=== PATIENT | male | born 1955 | race Caucasian/White ===

== ENCOUNTER 2019-05-04 20:25 | Observation (INO) | payer OTHER, MEDICARE ==
[2019-05-04] MEDS ORDERED: SODIUM CHLORIDE 0.9% 500 ML 500 ML IV STA (21:05)
[2019-05-04 21:27] LABS: Glucose,Whole Blood 150 mg/dL (75-99)
[2019-05-04 21:45] LABS: Basophils % (A) 1 %; Eosinophils # (A) 0.5 k/uL (0-0.7); Eosinophils % (A) 6 %; HCT 39.6 % (39.0-53.0); HGB 12.8 gm/dL (13.0-17.5); Lymphocytes # (A) 1.9 k/uL (1.0-4.8); Lymphocytes % (A) 22 %; MCH 32.4 pg (25.0-35.0); MCHC 32.3 g/dL (31.0-37.0); MCV 100.4 fL (80.0-100.0); Macrocytosis Slight; Mean Platelet Volume 7.9; Monocytes # (A) 0.4 k/uL (0-1.0); Monocytes % (A) 5 %; Neutrophils # (A) 5.4 k/uL (1.3-7.7); Neutrophils % (A) 65 %; Platelet Count 135 k/uL (150-450); RBC 3.95 m/uL (4.30-5.90); RDW 14.7 % (11.5-15.5); WBC 8.4 k/uL (3.8-10.6)
[2019-05-04 21:47] LABS: Albumin 4.7 g/dL (3.5-5.0); Calcium 9.8 mg/dL (8.4-10.2); Potassium 3.9 mmol/L (3.5-5.1); Total Protein 7.9 g/dL (6.3-8.2)
[2019-05-04 21:50] LABS: D-Dimer 0.51 mg/L FEU (<0.60); Partial Thromboplastin Time 26.5 sec (22.0-30.0); Prothrombin Time 10.7 sec (9.0-12.0)
--- NOTE | 2019-05-04 21:56 | CT ---
EXAMINATION TYPE: CT brain wo con DATE OF EXAM: 05/04/2019 COMPARISON: None HISTORY: Dizziness and near syncope. CT DLP: 1174.4 mGycm Automated exposure control for dose reduction was used. FINDINGS: There is some hypodensity in the white matter of both posterior parietal lobes. There is no mass effe ct nor midline shift. There is no sign of intracranial hemorrhage. Calvarium is intact. IMPRESSION: BILATERAL PARIETAL WHITE MATTER HYPODENSITY CONSISTENT WITH SMALL VESSEL ISCHEMIA. NO HEMORRHAGE. NO EVIDENCE OF CORTICAL INFARCT.
--- NOTE | 2019-05-04 21:57 | XR ---
EXAMINATION TYPE: XR chest 2V DATE OF EXAM: 05/04/2019 COMPARISON: NONE HISTORY: Chest pain TECHNIQUE: Frontal and lateral views of the chest are obtained. FINDINGS: Heart is enlarged. There are sternal wires. Lungs are clear of infiltrate. There is no hea rt failure. There are no hilar masses. There are chest leads. IMPRESSION: No active cardiopulmonary disease. Cardiomegaly.
[2019-05-04] MEDS ORDERED: ACETAMINOPHEN TAB 325 MG TAB PO PRN (22:32)
[2019-05-04] MEDS ORDERED: IBUPROFEN 400 MG TAB PO PRN (22:32)
[2019-05-04] MEDS ORDERED: NALOXONE 0.4 MG/ML 1 ML VIAL IV PRN (22:32)
[2019-05-04 23:08] LABS: Appearance,Urine Clear (Clear); Bilirubin,Urine Negative (Negative); Blood,Urine Negative (Negative); Color,Urine Yellow; Glucose,Urine (UA) Negative (Negative); Ketones,Urine Negative (Negative); Leukocyte Esterase,Urine Negative (Negative); Nitrite,Urine Negative (Negative); Protein,Urine Trace (Negative); Specific Gravity,Urine 1.017 (1.001-1.035)
--- NOTE | 2019-05-04 23:45 | ED ---
General Adult HPI - General Source: patient, family, RN notes reviewed, old records reviewed Mode of arrival: wheelchair Limitations: no limitations <Jacek Moreno - Last Filed: 05/05/19 00:44> <Mira Lay - Last Filed: 05/05/19 02:46> - General Chief complaint: Dizziness Stated complaint: Chest Pain Time Seen by Provider: 05/04/19 21:05 - History of Present Illness Initial comments: 64-year-old male patient past medical history of type 2 diabetes, hyperlipidemia, hypertension, status post reported 4 vessel CABG 2014 presents to ED after he states he had a brief period of possible presyncope. Patient reports that he was playing cards at a dance able when he began to feel lightheaded and had some transient blurred vision in his left eye. Patient family reports that when his sister and he did not respond for approximately 15 seconds. Pt/family deny any facial droop, unilateral weakness, nausea vomiting or diarrhea, abdominal pain, paresthesias. Patient reports that he did experience approximately 2 minutes of chest pain after this episode. Reports that the chest pain was substernal and radiated to his left xiphoid. Patient was this resolved without intervention. Patient at time of presentation Hospital is asymptomatic. Denies any chest pain sob abdominal pain nausea vomiting diarrhea, headache, fevers chills, changes in vision. Systemic: Pt denies fatigue, fever/chills, rash. Pt denies weakness, night sweats, weight loss. Neuro: Pt denies headache, visual disturbances, syncope or pre-syncope. HEENT: Pt denies ocular discharge or irritation, otalgia, rhinorrhea, pharyngit is or notable lymphadenopathy. Cardiopulmonary: Pt denies chest pain, SOB, heart palpitations, dyspnea on exertion. Abdominal/GI: Pt denies abdominal pain, n/v/d. : Pt denies dysuria, burning w/ urination, frequency/urgency. Denies new onset urinary or bowel incontinence. MSK: Pt denies myalgia, loss of strength or function in extremities. Neuro: Pt denies new onset weakness, paresthesias. (Jacek Moreno) I personally saw and evaluated the patient. Patient presented with presyncope and brief blurred vision and possible expressive aphasia. Patient has multiple risk factors for stroke. Head CT was unremarkable. Patient of symptoms in the emergency department. Upon my evaluation patient was feeling well requesting his regular home pain medications. Patient agreeable with plan for admission for evaluation by neurology and TIA workup including echo and carotid Doppler. (Mira Lay) - Related Data Home Medications Medication Instructions Recorded Confirmed Apixaban [Eliquis] 5 mg PO BID 05/04/19 05/04/19 Aspirin [Adult Low Dose Aspirin EC] 81 mg PO DAILY 05/04/19 05/04/19 Atorvastatin [Lipitor] 40 mg PO HS 05/04/19 05/04/19 Ergocalciferol [Vitamin D2] 50,000 unit PO Q30D 05/04/19 05/04/19 Furosemide [Lasix] 20 mg PO DAILY 05/04/19 05/04/19 Gabapentin [Neurontin] 300 mg PO TID 05/04/19 05/04/19 INSULIN ASPART (NovoLOG) [NovoLOG 43 unit SQ BID 05/04/19 05/04/19 (formulary)] INSULIN ASPART (NovoLOG) [NovoLOG 53 unit SQ QAM 05/04/19 05/04/19 (formulary)] Insulin Glargine [Lantus] 73 unit SQ BID 05/04/19 05/04/19 Metoprolol Tartrate [Lopressor] 25 mg PO BID 05/04/19 05/04/19 busPIRone HCl [Buspar] 20 mg PO BID 05/04/19 05/04/19 traMADol HCL [Ultram] 100 mg PO BID PRN 05/04/19 05/04/19 Allergies Allergy/AdvReac Type Severity Reaction Status Date / Time bee venom protein (honey bee) Allergy Anaphylaxis Verified 05/04/19 22:59 watermelon Allergy Anaphylaxis Verified 05/04/19 22:59 Review of Systems ROS Other: All systems not noted in ROS Statement are negative. <Jacek Moreno - Last Filed: 05/05/19 00:44> ROS Other: All systems not noted in ROS Statement are negative. <Mira Lay - Last Filed: 05/05/19 02:46> ROS Statement: Those systems with pertinent positive or pertinent negative responses have been documented in the HPI. Past Medical History Past Medical History: Diabetes Mellitus, Hyperlipidemia, Hypertension, Renal Disease Additional Past Medical History / Comment(s): 1 kidney History of Any Multi-Drug Resistant Organisms: MRSA Date of last positivie culture/infection: 2013 MDRO Source:: Right foot Past Surgical History: Coronary Bypass/CABG, Tonsillectomy Additional Past Surgical History / Comment(s): Cataract Bilat, Ganglian cyst removed from left arm Past Psychological History: Anxiety Smoking Status: Never smoker Past Alcohol Use History: None Reported Past Drug Use History: None Reported <Jacek Moreno - Last Filed: 05/05/19 00:44> - Past Family History Mother Family Medical History: Congestive Heart Failure (CHF), Diabetes Mellitus Father Family Medical History: Congestive Heart Failure (CHF), COPD, Diabetes Mellitus, Hyperlipidemia, Hypertension, Myocardial Infarction ([place]) <Mira Lay - Last Filed: 05/05/19 02:46> General Exam Limitations: no limitations <Jacek Moreno - Last Filed: 05/05/19 00:44> - General Exam Comments Initial Comments: Constitutional: NAD, AOX3, Pt has pleasant affect. HEENT: NC/AT, trachea midline, neck supple, no lymphadenopathy. Posterior pharynx non erythematous, without exudates. External ears appear normal, without discharge. Mucous membranes moist. Eyes PERRLA, EOM intact. There is no scleral icterus. No pallor noted. Cardiopulmonary: RRR, no murmurs, rubs or gallops, no JVD noted. Lungs CTAB in anterior and posterior massey. No peripheral edema. Abdominal exam: Abdomen soft and non-distended. Abdomen non-tender to palpation in all 4 quadrants. Bowel sounds active in LLQ. No hepatosplenomegaly. No ecchymosis Neuro: CN II-XII intact. No nuchal rigidity. No raccon eyes, no murcia sign, no hemotympanum. No cervical spinal tenderness. NIH 0. MSK: No posterior calf tenderness bilaterally, homans sign negative bilaterally. Posterior tibialis and radial pulse +2 bilaterally. Sensation intact in upper and lower extremities. Full active ROM in upper and lower extremities, 5/5 stregnth. (Jacek Moreno) Course Vital Signs 05/04/19 05/04/19 05/05/19 20:31 22:27 01:17 Temperature 98.8 F 98.8 F Pulse Rate 71 64 65 Respiratory 19 19 18 Rate Blood Pressure 153/85 135/71 131/63 O2 Sat by Pulse 96 98 100 Oximetry Medical Decision Making - Lab Data Result diagrams: 05/04/19 20:50 05/04/19 20:50 - EKG Data -: EKG Interpreted by Me (and Dr. Lay) <Jacek Moreno - Last Filed: 05/05/19 00:44> - Lab Data Result diagrams: 05/04/19 20:50 05/04/19 20:50 <Mira Lay - Last Filed: 05/05/19 02:46> - Medical Decision Making 64-year-old male patient past medical history of type 2 diabetes, hyperlipidemia, hypertension, status post reported 4 vessel CABG 2014 presents to ED after he states he had a brief period of possible presyncope. Patient reports that he was playing cards at a dance able when he began to feel lightheaded and had some transient blurred vision in his left eye. Patient family reports that when his sister and he did not respond for approximately 15 seconds. Pt/family deny any facial droop, unilateral weakness, nausea vomiting or diarrhea, abdominal pain, paresthesias. Patient reports that he did experience approximately 2 minutes of chest pain after this episode. Reports that the chest pain was substernal and radiated to his left xiphoid. Patient was this resolved without intervention. Patient at time of presentation Hospital is asymptomatic. Denies any chest pain sob abdominal pain nausea vomiting diarrhea, headache, fevers chills, changes in vision. Patient vitalsigns stable, afebrile. Physical exam did not display acute pathology. Neurologic exam within normal limits. NIH is 0. Laboratory investigations reveal non-impressive CBC. Coagulation studies within normal limits. D-dimer negative. CMP revealed mildly decreased kidney function, creatinine 1.81. Patient reports it is improved from baseline. Troponin is negative. She has within normal limits. UA negative. EKG not concerning for acute ischemia. Chest x-ray revealed no acute process. CT brain displayed bilateral parietal white matter hypodensity consistent with small vessel ischemia. No hemorrhage, no evidence of cortical infarct. Patient will be admitted for TIA and ACS rule out. Patient was placed on telemetry, serial troponins, cardiology neurology consult. Case discussed with Dr. Lay. (Jacek Moreno) - Lab Data Lab Results 05/04/19 05/04/19 05/04/19 Range/Units 20:50 20:50 20:50 WBC 8.4 (3.8-10.6) k/uL RBC 3.95 L (4.30-5.90) m/uL Hgb 12.8 L (13.0-17.5) gm/dL Hct 39.6 (39.0-53.0) % MCV 100.4 H (80.0-100.0) fL MCH 32.4 (25.0-35.0) pg MCHC 32.3 (31.0-37.0) g/dL RDW 14.7 (11.5-15.5) % Plt Count 135 L (150-450) k/uL Neutrophils % 65 % Lymphocytes % 22 % Monocytes % 5 % Eosinophils % 6 % Basophils % 1 % Neutrophils # 5.4 (1.3-7.7) k/uL Lymphocytes # 1.9 (1.0-4.8) k/uL Monocytes # 0.4 (0-1.0) k/uL Eosinophils # 0.5 (0-0.7) k/uL Basophils # 0.0 (0-0.2) k/uL Macrocytosis Slight PT (9.0-12.0) sec INR (<1.2) APTT (22.0-30.0) sec D-Dimer (<0.60) mg/L FEU Sodium 140 (137-145) mmol/L Potassium 3.9 (3.5-5.1) mmol/L Chloride 101 (98-107) mmol/L Carbon Dioxide 24 (22-30) mmol/L Anion Gap 15 mmol/L BUN 32 H (9-20) mg/dL Creatinine 1.81 H (0.66-1.25) mg/dL Est GFR (CKD-EPI)AfAm 45 (>60 ml/min/1.73 sqM) Est GFR (CKD-EPI)NonAf 39 (>60 ml/min/1.73 sqM) Glucose 161 H (74-99) mg/dL POC Glucose (mg/dL) (75-99) mg/dL POC Glu Video Clerk ID Plasma Lactic Acid Vikas (0.7-2.0) mmol/L Calcium 9.8 (8.4-10.2) mg/dL Total Bilirubin 1.0 (0.2-1.3) mg/dL AST 42 (17-59) U/L ALT 28 (21-72) U/L Alkaline Phosphatase 174 H (38-126) U/L Troponin I <0.012 (0.000-0.034) ng/mL Total Protein 7.9 (6.3-8.2) g/dL Albumin 4.7 (3.5-5.0) g/dL 05/04/19 05/04/19 05/04/19 Range/Units 20:50 21:25 21:55 WBC (3.8-10.6) k/uL RBC (4.30-5.90) m/uL Hgb (13.0-17.5) gm/dL Hct (39.0-53.0) % MCV (80.0-100.0) fL MCH (25.0-35.0) pg MCHC (31.0-37.0) g/dL RDW (11.5-15.5) % Plt Count (150-450) k/uL Neutrophils % % Lymphocytes % % Monocytes % % Eosinophils % % Basophils % % Neutrophils # (1.3-7.7) k/uL Lymphocytes # (1.0-4.8) k/uL Monocytes # (0-1.0) k/uL Eosinophils # (0-0.7) k/uL Basophils # (0-0.2) k/uL Macrocytosis PT 10.7 (9.0-12.0) sec INR 1.0 (<1.2) APTT 26.5 (22.0-30.0) sec D-Dimer 0.51 (<0.60) mg/L FEU Sodium (137-145) mmol/L Potassium (3.5-5.1) mmol/L Chloride (98-107) mmol/L Carbon Dioxide (22-30) mmol/L Anion Gap mmol/L BUN (9-20) mg/dL Creatinine (0.66-1.25) mg/dL Est GFR (CKD-EPI)AfAm (>60 ml/min/1.73 sqM) Est GFR (CKD-EPI)NonAf (>60 ml/min/1.73 sqM) Glucose (74-99) mg/dL POC Glucose (mg/dL) 150 H (75-99) mg/dL POC Glu Video Clerk Vero White Plasma Lactic Acid Vikas 1.4 (0.7-2.0) mmol/L Calcium (8.4-10.2) mg/dL Total Bilirubin (0.2-1.3) mg/dL AST (17-59) U/L ALT (21-72) U/L Alkaline Phosphatase (38-126) U/L Troponin I (0.000-0.034) ng/mL Total Protein (6.3-8.2) g/dL Albumin (3.5-5.0) g/dL - EKG Data EKG Comments: 1) intrauterine rate 70,. For 166, QRS 94, QT/QTc 420/453. Normal sinus rhythm sinus, normal EKG, no concern for acute ischemia. (Jacek Moreno) Disposition Is patient prescribed a controlled substance at d/c from ED?: No <Jacek Moreno - Last Filed: 05/05/19 00:44> <Mira Lay - Last Filed: 05/05/19 02:46> Clinical Impression: TIA (transient ischemic attack), Chest pain Disposition: ADMITTED IP TO THIS HOSP Condition: Serious
[2019-05-04] MEDS ORDERED: NITROGLYCERIN SL TABS 0.4 MG TAB SUBLINGUAL PRN (23:48)
[2019-05-05 03:25] LABS: Cholesterol 125 mg/dL (<200); HDL Cholesterol 41 mg/dL (40-60); LDL Cholesterol,Calculated 44 mg/dL (0-99); Triglycerides 199 mg/dL (<150)
[2019-05-05 06:54] LABS: Glucose,Whole Blood 164 mg/dL (75-99)
[2019-05-05] MEDS: INSULIN ASPART (NovoLOG) 100 UNIT/ML VIAL SQ SCH ×7 (07:18→21:35)
[2019-05-05] MEDS ORDERED: FUROSEMIDE 20 MG TAB PO SCH (09:00)
[2019-05-05] MEDS ORDERED: ASPIRIN 325 MG TAB PO SCH (09:00)
[2019-05-05] MEDS ORDERED: NON-FORMULARY DRUG (Aspirin [Adult Low Dose Aspirin Ec] 81 MG) PO SCH (09:00)
[2019-05-05] MEDS: busPIRone HCl 10 MG TAB PO SCH ×2 (09:39→21:34)
[2019-05-05] MEDS: GABAPENTIN 300 MG CAP PO SCH ×3 (09:40→21:34)
[2019-05-05] MEDS: APIXABAN 5 MG TAB PO SCH ×2 (09:40→21:34)
[2019-05-05] MEDS: METOPROLOL TARTRATE 25 MG TAB PO SCH ×2 (09:40→21:34)
[2019-05-05] MEDS: traMADol 50 MG TAB PO PRN (09:42)
--- NOTE | 2019-05-05 09:52 | US ---
EXAMINATION TYPE: US carotid duplex BILAT DATE OF EXAM: 05/05/2019 COMPARISON: NONE CLINICAL HISTORY: TIA symptoms. TIA, dizziness EXAM MEASUREMENTS: RIGHT: Peak Systolic Velocity (PSV) cm/sec ----- Right CCA: 88.6 ----- Right ICA: 236.6 ----- Right ECA: 233.9 ICA/CCA ratio: 2.7 RIGHT: End Diastole cm/sec ----- Right CCA: 14.2 ----- Right ICA: 24.8 ----- Right ECA: 0.0 LEFT: Peak Systolic Velocity (PSV) cm/sec ----- Left CCA: 74.9 ----- Left ICA: 258.3 ----- Left ECA: 314.2 ICA/CCA ratio: 3.4 LEFT: End Diastole cm/sec ----- Left CCA: 11.5 ----- Left ICA: 38.5 ----- Left ECA: 15.1 VERTEBRALS (direction of flow): Right Vertebral: Antegrade Left Vertebral: Antegrade Rhythm: Normal Moderate to severe plaque bilateral bifurcations. Increased velocities bilateral ICA's and ECA's IMPRESSION: Stenosis of the bilateral internal carotid artery of greater than 70%, left greater than right with extent into the external carotid arteries. CTA neck is recommended for further evaluation and more accurate degree of stenosis. Criteria for Assigning % of Stenosis / Diameter reduction (Estimation based on the indirect measurements of the internal carotid artery velocities (ICA PSV). 1. Normal (no stenosis)=ICA PSV < 125 cm/s: ratio < 2.0: ICA EDV<40 cm/s. 2. Less than 50% stenosis=ICA PSV < 125 cm/s: ratio < 2.0: ICA EDV<40 cm/s. 3. 50 to 69% stenosis=ICA PSV of 125 to 230 cm/s: ration 2.0 ? 4.0: ICA EDV 40-100 cm/s. 4. Greater than 70% stenosis to near occlusion= ICA PSV > 230 cm/s: ratio > 4.0: ICA EDV > 100 cm/s. 5. Near occlusion= ICA PSV velocities may be low or undetectable: variable ratio and ICA EDV. 6. Total occlusion=unable to detect flow.
[2019-05-05] MEDS ORDERED: AMIODARONE 200 MG TAB PO STA (11:19)
[2019-05-05 11:31] LABS: Glucose,Whole Blood 161 mg/dL (75-99)
[2019-05-05] MEDS: INSULIN DETEMIR (LEVEMIR) 100 UNIT/ML SYR SQ SCH ×2 (11:31→21:34)
--- NOTE | 2019-05-05 11:32 | P.CRDCN ---
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 He states that he has had one office visit, he thinks it may have been with Dr. Poole. He is scheduled in May to undergo an echocardiogram as well as a stress test. Patient presents to the hospital on this occasion following a presyncopal episode. He is overall wheelchair bound, he drives a scooter around because of spinal stenosis, he was playing cards with his , had an episode where he had some blurred vision in his left eye, and felt lightheaded, shortly thereafter patient had lost consciousness for approximately 10-15 seconds. He was not any more diaphoretic than his usual, his face was flushed in color, no paleness noted. He did not lose bowel or bladder function. There is no notable facial droop, no nausea vomiting or diarrhea. Apparently after the syncopal episode patient did have a brief episode of chest discomfort which resolved on its own, but overall patient states he has not been experiencing any chest discomfort. He has however lost about 40 pounds recently because he is trying to eliminate carts from his diet. His initially thought that his syncope may related to hypoglycemia however his blood sugar was in the range of 180. His blood pressure at that time was also stable at 1:30 to 140 systolic with a heart rate in the 70s to 80s. 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 According to the patient, he was also born with one kidney and recently it was noted that his renal function was slightly worse so his dose of home Lasix was decreased in half and his KIMBERLEE inhibitor had been discontinued. CT of the brain was performed which showed bilateral parietal white matter hypodensity consistent with small vessel ischemia. No hemorrhage. No evidence of cortical infarct. Chest x-ray did not reveal any active cardiopulmonary disease. Carotid Doppler study showed stenosis of the bilateral internal carotid arteries of greater than 70%, left greater than right with extension into the external carotid arteries. CTA of the neck is recommended for further evaluation and more accurate degree of stenosis. Blood pressure 148/70 heart rate in the 60s, 97% on room air. White blood cell count 8.4, hemoglobin 12.8, platelet count 135. D-dimer 0.5. Sodium 140, potassium 3.9, BUN 32 and creatinine of 1.8. Troponins negative 3. At the time of my examination, he is sitting up in bed, denies any dizziness or lightheadedness. EKG shows a normal sinus rhythm with no acute changes. No arrhythmias have been noted on the monitor. Past Medical History Past Medical History: Diabetes Mellitus, Hyperlipidemia, Hypertension, Renal Disease Additional Past Medical History / Comment(s): 1 kidney (congenital), MIGUEL History of Any Multi-Drug Resistant Organisms: MRSA Date of last positivie culture/infection: 2013 MDRO Source:: Right foot Past Surgical History: Coronary Bypass/CABG, Tonsillectomy Additional Past Surgical History / Comment(s): Cataract Bilat, Ganglian cyst removed from left arm, 2014 ([facility]) Past Anesthesia/Blood Transfusion Reactions: No Reported Reaction Past Psychological History: Anxiety Smoking Status: Never smoker Past Alcohol Use History: None Reported Past Drug Use History: None Reported - Past Family History Mother Family Medical History: Congestive Heart Failure (CHF), Diabetes Mellitus Father Family Medical History: Congestive Heart Failure (CHF), COPD, Diabetes Mellitus, Hyperlipidemia, Hypertension, Myocardial Infarction ([place]) Medications and Allergies Home Medications Medication Instructions Recorded Confirmed Type Apixaban [Eliquis] 5 mg PO BID 05/04/19 05/04/19 History Aspirin [Adult Low Dose Aspirin EC] 81 mg PO DAILY 05/04/19 05/04/19 History Atorvastatin [Lipitor] 40 mg PO HS 05/04/19 05/04/19 History Ergocalciferol [Vitamin D2] 50,000 unit PO Q30D 05/04/19 05/04/19 History Furosemide [Lasix] 20 mg PO DAILY 05/04/19 05/04/19 History Gabapentin [Neurontin] 300 mg PO TID 05/04/19 05/04/19 History INSULIN ASPART (NovoLOG) [NovoLOG 43 unit SQ BID 05/04/19 05/04/19 History (formulary)] INSULIN ASPART (NovoLOG) [NovoLOG 53 unit SQ QAM 05/04/19 05/04/19 History (formulary)] Insulin Glargine [Lantus] 73 unit SQ BID 05/04/19 05/04/19 History Metoprolol Tartrate [Lopressor] 25 mg PO BID 05/04/19 05/04/19 History busPIRone HCl [Buspar] 20 mg PO BID 05/04/19 05/04/19 History traMADol HCL [Ultram] 100 mg PO BID PRN 05/04/19 05/04/19 History Allergies Allergy/AdvReac Type Severity Reaction Status Date / Time bee venom protein (honey bee) Allergy Anaphylaxis Verified 05/04/19 22:59 watermelon Allergy Anaphylaxis Verified 05/04/19 22:59 Physical Exam Vitals: Vital Signs Temp Pulse Pulse Resp BP BP Pulse Ox 05/05/19 09:48 97.8 F 64 17 149/79 97 05/05/19 04:15 98.2 F 61 18 138/66 97 05/05/19 02:01 143/83 05/05/19 01:45 97.8 F 62 18 179/81 94 L 05/05/19 01:17 98.8 F 65 18 131/63 100 05/04/19 22:27 64 19 135/71 98 05/04/19 20:31 98.8 F 71 19 153/85 96 Intake and Output 05/04/19 05/05/19 05/05/19 22:59 06:59 14:59 Intake Total 120 Balance 120 Intake: Oral 120 Other: Weight 180.53 kg 181.7 kg PHYSICAL EXAMINATION: GENERAL: 64-year-old gentleman in no acute distress at the time of my examination HEENT: Head is atraumatic, normocephalic. Pupils equal, round. Sclera anict ethan. Conjunctiva are clear. Mucous membranes of the mouth are moist. Neck is supple. There is no elevated jugular venous pressure. Bilateral carotid bruits are heard. HEART EXAMINATION: Heart S1-S2 normal, no murmur or gallop is heard CHEST EXAMINATION: Lungs are clear to auscultation and precussion. No chest wall tenderness is noted on palpation or with deep breathing. ABDOMEN: Soft, obese, nontender. Bowel sounds are heard. No organomegaly noted. EXTREMITIES: 2+ peripheral pulses with 2+ evidence of peripheral edema and no calf tenderness noted. NEUROLOGIC patient is awake, alert and oriented 3 . . Results 05/04/19 20:50 05/04/19 20:50 Cardiac Enzymes 05/04/19 05/04/19 05/05/19 Range/Units 20:50 20:50 02:47 AST 42 (17-59) U/L Troponin I <0.012 <0.012 (0.000-0.034) ng/mL 05/05/19 Range/Units 08:32 AST (17-59) U/L Troponin I <0.012 (0.000-0.034) ng/mL Coagulation 05/04/19 Range/Units 20:50 PT 10.7 (9.0-12.0) sec APTT 26.5 (22.0-30.0) sec Lipids 05/05/19 Range/Units 02:47 Triglycerides 199 H (<150) mg/dL Cholesterol 125 (<200) mg/dL HDL Cholesterol 41 (40-60) mg/dL CBC 05/04/19 Range/Units 20:50 WBC 8.4 (3.8-10.6) k/uL RBC 3.95 L (4.30-5.90) m/uL Hgb 12.8 L (13.0-17.5) gm/dL Hct 39.6 (39.0-53.0) % Plt Count 135 L (150-450) k/uL Comprehensive Metabolic Panel 05/04/19 Range/Units 20:50 Sodium 140 (137-145) mmol/L Potassium 3.9 (3.5-5.1) mmol/L Chloride 101 (98-107) mmol/L Carbon Dioxide 24 (22-30) mmol/L BUN 32 H (9-20) mg/dL Creatinine 1.81 H (0.66-1.25) mg/dL Glucose 161 H (74-99) mg/dL Calcium 9.8 (8.4-10.2) mg/dL AST 42 (17-59) U/L ALT 28 (21-72) U/L Alkaline Phosphatase 174 H (38-126) U/L Total Protein 7.9 (6.3-8.2) g/dL Albumin 4.7 (3.5-5.0) g/dL Current Medications Generic Name Dose Route Start Last Admin Trade Name Freq PRN Reason Stop Dose Admin Acetaminophen 650 mg 05/04/19 22:32 Tylenol Tab PO Q6HR PRN Mild Pain or Fever > 100.5 Apixaban 5 mg 05/05/19 09:00 05/05/19 09:40 Eliquis PO 5 mg BID [facility] Administration Aspirin 81 mg 05/06/19 09:00 Aspirin PO DAILY [facility] Atorvastatin Calcium 40 mg 05/05/19 21:00 Lipitor PO HS [facility] Buspirone HCl 20 mg 05/05/19 09:00 05/05/19 09:39 Buspar PO 20 mg BID [facility] Administration Ergocalciferol 50,000 unit 05/31/19 09:00 Vitamin D2 PO Q30D [facility] Gabapentin 300 mg 05/05/19 09:00 05/05/19 09:40 Neurontin PO 300 mg TID [facility] Administration Insulin Aspart 53 unit 05/05/19 07:30 05/05/19 07:18 Novolog SQ 53 unit QAM@0730 [facility] Administration Insulin Aspart 43 unit 05/05/19 12:30 Novolog SQ BID@1230,1730 [facility] Insulin Aspart 0 unit 05/05/19 07:30 05/05/19 07:19 Novolog SQ 3 unit ACHS [facility] Administration Protocol Insulin Detemir 73 unit 05/05/19 09:00 Levemir SQ BID [facility] Metoprolol Tartrate 25 mg 05/05/19 09:00 05/05/19 09:40 Lopressor PO 25 mg BID [facility] Administration Naloxone HCl 0.2 mg 05/04/19 22:32 Narcan IV Q2M PRN Opioid Reversal Nitroglycerin 0.4 mg 05/04/19 23:48 Nitrostat SUBLINGUAL Q5M PRN Chest Pain Tramadol HCl 100 mg 05/05/19 01:47 05/05/19 09:42 Ultram PO 100 mg BID PRN Administration Pain Intake and Output 05/04/19 05/05/19 05/05/19 22:59 06:59 14:59 Intake Total 120 Balance 120 Intake: Oral 120 Other: Weight 180.53 kg 181.7 kg 05/04/19 20:50 05/04/19 20:50 EKG Interpretations (text) EKG shows normal sinus rhythm with no acute changes. Assessment and Plan Plan: Assessment and plan #1 syncope, rule out cardiac causes. We'll check orthostatics and continue to monitor for any tachycardia or bradycardia arrhythmias. Patient also has documented bilateral significant carotid stenosis #2 diabetes #3 hypertension #4 hyperlipidemia #5 spinal stenosis #6 paroxysmal atrial fibrillation on Eliquis for anticoagulation #7 coronary artery disease with prior bypass surgery Plan We will obtain an echocardiogram with Doppler study. We will also check ort hostatic heart rate and blood pressure every shift, continue to monitor for any tachycardia or bradycardia arrhythmias. Further recommendations to follow. DNP note has been reviewed, I agree with a documented findings and plan of care. Patient was seen and examined.
--- NOTE | 2019-05-05 11:48 | ECHOF ---
Referral Reason:TIA symptoms MEASUREMENTS -------- HEIGHT: 190.5 cm WEIGHT: 181.4 kg BP: 138/66 IVSd: 1.5 cm (0.6 - 1.1) LVIDd: 7.5 cm (3.9 - 5.3) LVPWd: 1.6 cm (0.6 - 1.1) IVSs: 2.6 cm LVIDs: 5.5 cm LVPWs: 2.3 cm EDV(Teich): 295 ml ESV(Teich): 148 ml EF(Teich): 50 % %FS: 26 % SV(Teich): 147 ml Ao Diam: 3.7 cm (2.0 - 3.7) AV Cusp: 1.7 cm (1.5 - 2.6) LA Diam: 4.3 cm (2.7 - 3.8) MV E Javi: 0.86 m/s MV DecT: 342 ms MV A Javi: 1.10 m/s MV E/A Ratio: 0.78 FINDINGS -------- Sinus rhythm. This was a technically difficult study with suboptimal views. Morbid Obesity The left ventricle is moderately dilated. There is moderate concentric left ventricular hypertrophy . Overall left ventricular systolic function is mildly impaired with, an EF between 45 - 50 %. The RV was not well visualized. The left atrium is mildly dilated. The right atrium was not well visualized. Lumason used Interatrial and interventricular septum intact. Aortic valve is trileaflet and is mildly thickened. There is mild to moderate aortic valve sclerosi s. Mild mitral annular calcification present. Mild mitral regurgitation is present. The tricuspid valve was not well visualized. Trace tricuspid regurgitation present. There is no pulmonic regurgitation present. The aortic root size is normal. IVC Not well visulized. Echo free space indicative of a pericardial fat pad. CONCLUSIONS -------- 1. Sinus rhythm. 2. This was a technically difficult study with suboptimal views. 3. Morbid Obesity 4. The left ventricle is moderately dilated. 5. There is moderate concentric left ventricular hypertrophy. 6. Overall left ventricular systolic function is mildly impaired with, an EF between 45 - 50 %. 7. The RV was not well visualized. 8. The left atrium is mildly dilated. 9. The right atrium was not well visualized. 10. Lumason used 11. Interatrial and interventricular septum intact. 12. Aortic valve is trileaflet and is mildly thickened. 13. There is mild to moderate aortic valve sclerosis. 14. Mild mitral annular calcification present. 15. Mild mitral regurgitation is present. 16. The tricuspid valve was not well visualized. 17. Trace tricuspid regurgitation present. 18. There is no pulmonic regurgitation present. 19. The aortic root size is normal. 20. IVC Not well visulized. 21. Echo free space indicative of a pericardial fat pad. CHIEF ELECTRICIAN: Magalie Delgado RDCS
--- NOTE | 2019-05-05 12:14 | P.DS ---
Providers Date of admission: 05/04/19 22:32 Attending physician: German Xiao Consults: 05/04/19 22:32 Consult Physician Urgent Consulting Provider: Tracy Frazier Consult Reason/Comments: Possible TIA Do you want consulting provider notified?: Yes 05/04/19 23:48 Consult Physician Urgent Consulting Provider: Hunter Aguilar Consult Reason/Comments: chest pain Do you want consulting provider notified?: Yes Primary care physician: [facility] Hospital Course: Please refer to HPI Patient Condition at Discharge: Serious Plan - Discharge Summary Discharge Rx Participant: Yes New Discharge Prescriptions: New Furosemide [Lasix] 40 mg PO DAILY #30 tablet Discontinued Furosemide [Lasix] 20 mg PO DAILY No Action traMADol HCL [Ultram] 100 mg PO BID PRN PRN Reason: Pain INSULIN ASPART (NovoLOG) [NovoLOG (formulary)] 43 unit SQ BID INSULIN ASPART (NovoLOG) [NovoLOG (formulary)] 53 unit SQ QAM Metoprolol Tartrate [Lopressor] 25 mg PO BID Insulin Glargine [Lantus] 73 unit SQ BID Atorvastatin [Lipitor] 40 mg PO HS busPIRone HCl [Buspar] 20 mg PO BID Gabapentin [Neurontin] 300 mg PO TID Ergocalciferol [Vitamin D2] 50,000 unit PO Q30D Aspirin [Adult Low Dose Aspirin EC] 81 mg PO DAILY Apixaban [Eliquis] 5 mg PO BID Discharge Medication List Apixaban [Eliquis] 5 mg PO BID 05/04/19 [History] Aspirin [Adult Low Dose Aspirin EC] 81 mg PO DAILY 05/04/19 [History] Atorvastatin [Lipitor] 40 mg PO HS 05/04/19 [History] Ergocalciferol [Vitamin D2] 50,000 unit PO Q30D 05/04/19 [History] Gabapentin [Neurontin] 300 mg PO TID 05/04/19 [History] INSULIN ASPART (NovoLOG) [NovoLOG (formulary)] 43 unit SQ BID 05/04/19 [History] INSULIN ASPART (NovoLOG) [NovoLOG (formulary)] 53 unit SQ QAM 05/04/19 [History] Insulin Glargine [Lantus] 73 unit SQ BID 05/04/19 [History] Metoprolol Tartrate [Lopressor] 25 mg PO BID 05/04/19 [History] busPIRone HCl [Buspar] 20 mg PO BID 05/04/19 [History] traMADol HCL [Ultram] 100 mg PO BID PRN 05/04/19 [History] Furosemide [Lasix] 40 mg PO DAILY #30 tablet 05/05/19 [Rx] Follow up Appointment(s)/Referral(s): Zachary Parsons MD [STAFF PHYSICIAN] - 1 Week [facility],Clinic [Primary Care Provider] - 3 Days Discharge Disposition: HOME SELF-CARE
--- NOTE | 2019-05-05 12:14 | P.HPIM ---
History of Present Illness 64-year-old pleasant male morbidly obese came in with complaints of lightheadedness presyncopal episode did not lose consciousness. Patient is to approximately 10 ablation presently in sinus rhythm. Patient had an echo cardiac exam showed 45% ejection fraction no other significant abnormality was appreciated. Patient had a carotid Doppler which showed bilateral stenosis of 70% for which patient will follow with vascular surgery as an outpatient. Patient is clinically doing well. And that not disease orthostatic vitals are negative patient may have had an episode of A. fib presently sinus rhythm will be discharged today. There is no weakness or tingling and numbness no evidence of TIA. CT of the brain showed bilateral parietal white matter hypodensity although there is no weakness. Vague findings are not consistent with stroke is no evidence of cortical infarct patient is already on Eliquis which she will continue. Patient may have had old strokes. No additional anti-correlation antiplatelet therapy will be added patient will resume his Eliquis for A. fib. Patient will be discharged today. Review of Systems REVIEW OF SYSTEMS: CONSTITUTIONAL: No fever, no malaise, no fatigue. HEENT: No recent visual problems or hearing problems. Denied any sore throat. CARDIOVASCULAR: No chest pain, orthopnea, PND, no palpitations, no syncope. PULMONARY: No shortness of breath, no cough, no hemoptysis. GASTROINTESTINAL: No diarrhea, no nausea, no vomiting, no abdominal pain. NEUROLOGICAL: No headaches, no weakness, no numbness. HEMATOLOGICAL: Denies any bleeding or petechiae. GENITOURINARY: Denies any burning micturition, frequency, or urgency. MUSCULOSKELETAL/RHEUMATOLOGICAL: Denies any joint pain, swelling, or any muscle pain. ENDOCRINE: Denies any polyuria or polydipsia. The rest of the 14-point review of systems is negative. Past Medical History Past Medical History: Diabetes Mellitus, Hyperlipidemia, Hypertension, Renal Disease Additional Past Medical History / Comment(s): 1 kidney (congenital), MIGUEL History of Any Multi-Drug Resistant Organisms: MRSA Date of last positivie culture/infection: 2013 MDRO Source:: Right foot Past Surgical History: Coronary Bypass/CABG, Tonsillectomy Additional Past Surgical History / Comment(s): Cataract Bilat, Ganglian cyst removed from left arm, 2015 ([facility]) Past Anesthesia/Blood Transfusion Reactions: No Reported Reaction Past Psychological History: Anxiety Smoking Status: Never smoker Past Alcohol Use History: None Reported Past Drug Use History: None Reported - Past Family History Mother Family Medical History: Congestive Heart Failure (CHF), Diabetes Mellitus Father Family Medical History: Congestive Heart Failure (CHF), COPD, Diabetes Mellitus, Hyperlipidemia, Hypertension, Myocardial Infarction ([place]) Medications and Allergies Home Medications Medication Instructions Recorded Confirmed Type Apixaban [Eliquis] 5 mg PO BID 05/04/19 05/04/19 History Aspirin [Adult Low Dose Aspirin EC] 81 mg PO DAILY 05/04/19 05/04/19 History Atorvastatin [Lipitor] 40 mg PO HS 05/04/19 05/04/19 History Ergocalciferol [Vitamin D2] 50,000 unit PO Q30D 05/04/19 05/04/19 History Gabapentin [Neurontin] 300 mg PO TID 05/04/19 05/04/19 History INSULIN ASPART (NovoLOG) [NovoLOG 43 unit SQ BID 05/04/19 05/04/19 History (formulary)] INSULIN ASPART (NovoLOG) [NovoLOG 53 unit SQ QAM 05/04/19 05/04/19 History (formulary)] Insulin Glargine [Lantus] 73 unit SQ BID 05/04/19 05/04/19 History Metoprolol Tartrate [Lopressor] 25 mg PO BID 05/04/19 05/04/19 History busPIRone HCl [Buspar] 20 mg PO BID 05/04/19 05/04/19 History traMADol HCL [Ultram] 100 mg PO BID PRN 05/04/19 05/04/19 History Furosemide [Lasix] 40 mg PO DAILY #30 tablet 05/05/19 Rx Allergies Allergy/AdvReac Type Severity Reaction Status Date / Time bee venom protein (honey bee) Allergy Anaphylaxis Verified 05/04/19 22:59 watermelon Allergy Anaphylaxis Verified 05/04/19 22:59 Physical Exam Vitals: Vital Signs Temp Pulse Pulse Resp BP BP Pulse Ox 05/05/19 11:07 97.8 F 60 17 127/59 94 L 05/05/19 09:48 97.8 F 64 17 149/79 97 05/05/19 04:15 98.2 F 61 18 138/66 97 05/05/19 02:01 143/83 05/05/19 01:45 97.8 F 62 18 179/81 94 L 05/05/19 01:17 98.8 F 65 18 131/63 100 05/04/19 22:27 64 19 135/71 98 05/04/19 20:31 98.8 F 71 19 153/85 96 Intake and Output 05/04/19 05/05/19 05/05/19 22:59 06:59 14:59 Intake Total 120 Balance 120 Intake: Oral 120 Other: Weight 180.53 kg 181.7 kg PHYSICAL EXAMINATION: GENERAL: The patient is alert and oriented x3, not in any acute distress. Well developed, well nourished. Obese and patient did lose 30 pound weight recently which is intentional HEENT: Pupils are round and equally reacting to light. EOMI. No scleral icterus. No conjunctival pallor. Normocephalic, atraumatic. No pharyngeal erythema. No thyromegaly. CARDIOVASCULAR: S1 and S2 present. No murmurs, rubs, or gallops. PULMONARY: Chest is clear to auscultation, no wheezing or crackles. ABDOMEN: Soft, nontender, nondistended, normoactive bowel sounds. No palpable organomegaly. MUSCULOSKELETAL: No joint swelling or deformity. EXTREMITIES: No cyanosis, clubbing, or pedal edema NEUROLOGICAL: Gross neurological examination did not reveal any focal deficits. SKIN: No rashes. Results CBC & Chem 7: 05/04/19 20:50 05/04/19 20:50 Labs: Abnormal Lab Results - Last 24 Hours (Table) 05/04/19 05/04/19 05/04/19 Range/Units 20:50 20:50 21:25 RBC 3.95 L (4.30-5.90) m/uL Hgb 12.8 L (13.0-17.5) gm/dL MCV 100.4 H (80.0-100.0) fL Plt Count 135 L (150-450) k/uL BUN 32 H (9-20) mg/dL Creatinine 1.81 H (0.66-1.25) mg/dL Glucose 161 H (74-99) mg/dL POC Glucose (mg/dL) 150 H (75-99) mg/dL Alkaline Phosphatase 174 H (38-126) U/L Triglycerides (<150) mg/dL Urine Protein (Negative) 0605/05/19 05/05/19 Range/Units 22:40 02:47 06:53 RBC (4.30-5.90) m/uL Hgb (13.0-17.5) gm/dL MCV (80.0-100.0) fL Plt Count (150-450) k/uL BUN (9-20) mg/dL Creatinine (0.66-1.25) mg/dL Glucose (74-99) mg/dL POC Glucose (mg/dL) 164 H (75-99) mg/dL Alkaline Phosphatase (38-126) U/L Triglycerides 199 H (<150) mg/dL Urine Protein Trace H (Negative) 05/05/19 Range/Units 11:30 RBC (4.30-5.90) m/uL Hgb (13.0-17.5) gm/dL MCV (80.0-100.0) fL Plt Count (150-450) k/uL BUN (9-20) mg/dL Creatinine (0.66-1.25) mg/dL Glucose (74-99) mg/dL POC Glucose (mg/dL) 161 H (75-99) mg/dL Alkaline Phosphatase (38-126) U/L Triglycerides (<150) mg/dL Urine Protein (Negative) Thrombosis Risk Factor Assmnt - Choose All That Apply Any of the Below Risk Factors Present?: Yes Each Factor Represents 1 point: Obesity (BMI >25), Swollen legs (current) Other Risk Factors: Yes Each Risk Factor Represents 2 Points: Age 61-74 years Other congenital or acquired thrombophilia - If yes, enter type in comment: No Thrombosis Risk Factor Assessment Total Risk Factor Score: 4 Thrombosis Risk Factor Assessment Level: Moderate Risk Assessment and Plan Plan: - syncopal episode: Probably due to an episode of A. fib presently sinus rhythm patient will be discharged today I'm not changing any of the medications. -An incidental finding of vague white matter hypodensity although there is no clear-cut evidence of acute stroke. Patient is already in Eliquis in the cholesterol medications which she will resume and patient will be discharged no weakness or tingling and numbness patient doesn't have any stroke or TIA symptoms clinically -Atrial fibrillation rate controlled patient will be resumed on his home medica tions will be discharged today will continue with Eliquis. -Type 2 diabetes mellitus -Morbid obesity patient has been losing weight and change his diet recently -Hypertension -Hyperlipidemia As mentioned above patient will be discharged today in stable medical condition to home and because of the bilateral stenosis 70% patient will follow up with the Dr. Parsons as an outpatient
[2019-05-05 16:45] LABS: Glucose,Whole Blood 114 mg/dL (75-99)
--- NOTE | 2019-05-05 17:21 | P.CNNES ---
History of Present Illness Consult date: 05/05/19 Reason for Consult: Possible TIA History of Present Illness: Patient is a 64-year-old male, with history of diabetes, chronic back issues for which he is on a motorized scooter. Patient states that yesterday he had just finished eating dinner. He was playing cards, sitting in his scooter, when suddenly his ears popped, he developed blurred vision in the left eye. When he felt everything was moving away from him. He passed out for about 15-20 seconds. He does not remember what happened. There was no convulsive activity, tongue bite or loss of control of urine. Patient's checked his blood sugar was 180, and blood pressure was also normal. Then patient came to, he did not know what happened. Asked to call the ambulance and patient was brought to the hospital. Patient underwent computed tomography scan of the head, which r evealed bilateral parietal white matter hypodensity consistent with small vessel ischemia. No acute process. Chest x-ray showed no acute cardiopulmonary disease. There is cardiomegaly. 2-D echo showed normal sinus rhythm. Left ventricle is moderately dilated. Moderate concentric LVH. Mild to moderate aortic valve sclerosis. Patient had carotid Doppler, which revealed stenosis of bilateral ICA of greater than 70%, left greater than right with extent into the external carotid arteries. CTA neck is recommended for further evaluation and more accurate degree of stenosis. Antegrade flow in both vertebral arteries. EKG showed normal sinus rhythm with sinus arrhythmia. 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 This episode was somewhat unusual. Patient has history of atrial fibrillation, coronary artery disease, currently on anticoagulation with Apixaban 5 mg twice a day and aspirin 81 mg. Patient has been on these medications as an outpatient also. Patient also has single kidney. Patient used to smoke half pack per day for 37 years, quit 18 years ago. Patient has diabetes, hypertension. Patient also has history of chronic back issues, for which he uses motorized scooter. He is spinal stenosis, bad knees. Review of Systems Chronic back pain. Patient complains of intermittent headaches involving the bilateral temporal regions off and on for last 3 weeks. The headache is mild, 2-4/10, last about 15-60 minutes, then goes away for couple days and comes back. Patient does drink 4-5 cups of regular coffee per day. He does not take excessive pops. His headaches could be related to caffeine. Patient denies any chest pain, shortness of breath, double vision. Patient denied any focal numbness, tingling, weakness, facial droop, slurred speech associated with this current spell. Past Medical History Past Medical History: Diabetes Mellitus, Hyperlipidemia, Hypertension, Renal Disease Additional Past Medical History / Comment(s): 1 kidney (congenital), MIGUEL History of Any Multi-Drug Resistant Organisms: MRSA Date of last positivie culture/infection: 2013 MDRO Source:: Right foot Past Surgical History: Coronary Bypass/CABG, Tonsillectomy Additional Past Surgical History / Comment(s): Cataract Bilat, Ganglian cyst removed from left arm, 2014 ([facility]) Past Anesthesia/Blood Transfusion Reactions: No Reported Reaction Past Psychological History: Anxiety Smoking Status: Never smoker Past Alcohol Use History: None Reported Past Drug Use History: None Reported - Past Family History Mother Family Medical History: Congestive Heart Failure (CHF), Diabetes Mellitus Father Family Medical History: Congestive Heart Failure (CHF), COPD, Diabetes Mellitus, Hyperlipidemia, Hypertension, Myocardial Infarction ([place]) Medications and Allergies Home Medications Medication Instructions Recorded Confirmed Type Apixaban [Eliquis] 5 mg PO BID 05/04/19 05/04/19 History Aspirin [Adult Low Dose Aspirin EC] 81 mg PO DAILY 05/04/19 05/04/19 History Atorvastatin [Lipitor] 40 mg PO HS 05/04/19 05/04/19 History Ergocalciferol [Vitamin D2] 50,000 unit PO Q30D 05/04/19 05/04/19 History Gabapentin [Neurontin] 300 mg PO TID 05/04/19 05/04/19 History INSULIN ASPART (NovoLOG) [NovoLOG 43 unit SQ BID 05/04/19 05/04/19 History (formulary)] INSULIN ASPART (NovoLOG) [NovoLOG 53 unit SQ QAM 05/04/19 05/04/19 History (formulary)] Insulin Glargine [Lantus] 73 unit SQ BID 05/04/19 05/04/19 History Metoprolol Tartrate [Lopressor] 25 mg PO BID 05/04/19 05/04/19 History busPIRone HCl [Buspar] 20 mg PO BID 05/04/19 05/04/19 History traMADol HCL [Ultram] 100 mg PO BID PRN 05/04/19 05/04/19 History Furosemide [Lasix] 40 mg PO DAILY #30 tablet 05/05/19 Rx Allergies Allergy/AdvReac Type Severity Reaction Status Date / Time bee venom protein (honey bee) Allergy Anaphylaxis Verified 05/04/19 22:59 watermelon Allergy Anaphylaxis Verified 05/04/19 22:59 Physical Examination - Vital Signs Vital Signs: Vital Signs Temp Pulse Pulse Pulse Pulse Resp BP 05/05/19 16:03 98.6 F 74 68 64 17 05/05/19 11:07 97.8 F 60 17 05/05/19 09:48 97.8 F 64 17 05/05/19 04:15 98.2 F 61 18 05/05/19 02:01 05/05/19 01:45 97.8 F 62 18 05/05/19 01:17 98.8 F 65 18 131/63 05/04/19 22:27 64 19 135/71 05/04/19 20:31 98.8 F 71 19 153/85 BP BP BP BP Pulse Ox 05/05/19 16:03 144/70 140/70 132/63 96 05/05/19 11:07 127/59 94 L 05/05/19 09:48 149/79 97 05/05/19 04:15 138/66 97 05/05/19 02:01 143/83 05/05/19 01:45 179/81 94 L 05/05/19 01:17 100 05/04/19 22:27 98 05/04/19 20:31 96 Intake and Output 05/05/19 05/05/19 05/05/19 06:59 14:59 22:59 Intake Total 720 Balance 720 Intake: Oral 720 Other: # Voids 2 Weight 181.7 kg On examination patient is an elderly male, moderately obese, in no distress mental status speech and language functions are normal. Cranial nerves pupils are round and reactive to light, visual massey are full, face is sy mmetric and tongue protrudes the midline. Palatal elevation and sensation normal. Muscle strength, no pronator drift. And strength is normal in arms and legs reflexes symmetric and plantars downgoing sensory touch is equal. No ataxia for [id number] testing, tone and bulk of muscles normal. Gait deferred. Results Patient's total cholesterol is 125, LDL 44, HDL 41. Patient states his last hemoglobin A1c was 6.9. - Laboratory Findings CBC and BMP: 05/04/19 20:50 05/04/19 20:50 Abnormal Lab Findings: Abnormal Labs 05/04/19 05/04/19 05/04/19 20:50 20:50 21:25 RBC 3.95 L Hgb 12.8 L MCV 100.4 H Plt Count 135 L BUN 32 H Creatinine 1.81 H Glucose 161 H POC Glucose (mg/dL) 150 H Alkaline Phosphatase 174 H Triglycerides Urine Protein 05/04/19 05/05/19 05/05/19 22:40 02:47 06:53 RBC Hgb MCV Plt Count BUN Creatinine Glucose POC Glucose (mg/dL) 164 H Alkaline Phosphatase Triglycerides 199 H Urine Protein Trace H 05/05/19 05/05/19 11:30 16:44 RBC Hgb MCV Plt Count BUN Creatinine Glucose POC Glucose (mg/dL) 161 H 114 H Alkaline Phosphatase Triglycerides Urine Protein - Diagnostic Findings EKG: report reviewed Assessment and Plan Assessment: * Possible TIA, manifesting with blurred vision left eye, and syncope lasting for 15-20 seconds. Patient has bilateral ICA stenosis, >70%, left more than right. His ICA stenosis is possibly symptomatic. * Diabetes * Hypertension * Obesity * Chronic back pain Plan: * Vascular surgical consultation for evaluation of bilateral ICA stenosis > 70%, left side worse. Patient wishes to have an appointment with vascular surgery as an outpatient. * Patient may need CTA of the neck, although poses slight risk due to single kidney, and mild renal insufficiency. May consider MRA of the carotids otherwise. * Continue Apixaban and ASA 81 mg for now. * Cardiology has seen the patient, who is recommending Holter monitoring, to rule out arrhythmia.
[2019-05-05] MEDS ORDERED: ATORVASTATIN 40 MG TAB PO SCH (21:00)
[2019-05-05 21:06] LABS: Glucose,Whole Blood 132 mg/dL (75-99)
[2019-05-06 06:25] LABS: Glucose,Whole Blood 156 mg/dL (75-99)
[2019-05-06] MEDS: INSULIN ASPART (NovoLOG) 100 UNIT/ML VIAL SQ SCH ×4 (07:10→12:52)
[2019-05-06 08:19] VITALS: RESP 16; TEMP 98.3
[2019-05-06] MEDS ORDERED: ASPIRIN 81 MG PO SCH ×2 (09:00→21:00)
[2019-05-06] MEDS: busPIRone HCl 10 MG TAB PO SCH (09:32)
[2019-05-06] MEDS: METOPROLOL TARTRATE 25 MG TAB PO SCH (09:32)
[2019-05-06] MEDS: APIXABAN 5 MG TAB PO SCH (09:32)
[2019-05-06] MEDS: GABAPENTIN 300 MG CAP PO SCH (09:32)
[2019-05-06] MEDS: INSULIN DETEMIR (LEVEMIR) 100 UNIT/ML SYR SQ SCH (09:34)
[2019-05-06 09:39] VITALS: BP 169/72; PULSE 74
[2019-05-06] MEDS ORDERED: AMIODARONE 200 MG TAB PO SCH (09:45)
[2019-05-06] MEDS: traMADol 50 MG TAB PO PRN (09:58)
--- NOTE | 2019-05-06 10:19 | P.PN ---
Subjective Progress Note Date: 05/06/19 Patient denies any new focal neurological symptoms. Feels fine, wants to go home. Objective - Vital Signs Vital signs: Vital Signs Temp 98.3 F 05/06/19 07:30 Pulse 74 05/06/19 09:25 Resp 16 05/06/19 07:30 BP 169/72 05/06/19 09:25 Pulse Ox 99 05/06/19 07:30 Intake & Output 05/05/19 05/06/19 05/06/19 18:59 06:59 18:59 Intake Total 960 360 Balance 960 360 Weight 180.9 kg Intake: Oral 960 360 Other: # Voids 2 - Exam Patient's mental status, speech language functions are normal. Cranial nerves are normal muscle strength normal. No ataxia. - Labs CBC & Chem 7: 05/04/19 20:50 05/04/19 20:50 Labs: Abnormal Lab Results - Last 24 Hours (Table) 05/05/19 05/05/19 05/05/19 Range/Units 11:30 16:44 21:05 POC Glucose (mg/dL) 161 H 114 H 132 H (75-99) mg/dL 05/06/19 Range/Units 06:24 POC Glucose (mg/dL) 156 H (75-99) mg/dL Assessment and Plan Assessment: * Possible TIA, manifesting with blurred vision left eye, and syncope lasting for 15-20 seconds. Patient has bilateral ICA stenosis of >70%, left worse than right. His ICA stenosis is possibly symptomatic. * Diabetes * Hypertension * Obesity * Chronic back pain * Mild renal insufficiency. Patient has single kidney. Plan: * Vascular surgical consultation for evaluation of bilateral ICA stenosis > 70%, left side worse. Patient wishes to have an appointment with vascular surgery as an outpatient. * Consider CTA of the neck versus MRA of the neck. * Continue Apixaban. We will increase aspirin to 81 mg twice a day for now. * Cardiology has seen the patient, who is recommending Holter monitoring, to rule out arrhythmia.
[2019-05-06 12:06] LABS: Glucose,Whole Blood 153 mg/dL (75-99)
--- NOTE | 2019-05-06 12:42 | P.DS ---
Providers Date of admission: 05/04/19 22:32 Attending physician: German Xiao Consults: 05/04/19 22:32 Consult Physician Urgent Consulting Provider: Tracy Frazier Consult Reason/Comments: Possible TIA Do you want consulting provider notified?: Yes 05/04/19 23:48 Consult Physician Urgent Consulting Provider: Hunter Aguilar Consult Reason/Comments: chest pain Do you want consulting provider notified?: Yes Primary care physician: [facility] Hospital Course: 70-year-old of present gentleman came in with blurred vision in the left eye was evaluated for TIA. Patient appears to have TIA and patient is to have near syncopal episode does have some significant CAT scan findings and carotid Doppler showing stenosis of the internal carotid artery greater than 70% for w hich patient will follow-up with the vascular surgery as an outpatient and that this appears to be asymptomatic carotid stenosis. Patient is already in Eliquis and aspirin aspirin dose is being increased to twice a day by neurology. Patient will benefit from my outpatient MRA of the neck. Patient will receive Holter monitor on Wednesday and patient will be discharged today. PHYSICAL EXAMINATION: GENERAL: The patient is alert and oriented x3, not in any acute distress. Well developed, well nourished. HEENT: Pupils are round and equally reacting to light. EOMI. No scleral icterus. No conjunctival pallor. Normocephalic, atraumatic. No pharyngeal erythema. No thyromegaly. CARDIOVASCULAR: S1 and S2 present. No murmurs, rubs, or gallops. PULMONARY: Chest is clear to auscultation, no wheezing or crackles. ABDOMEN: Soft, nontender, nondistended, normoactive bowel sounds. No palpable organomegaly. MUSCULOSKELETAL: No joint swelling or deformity. EXTREMITIES: No cyanosis, clubbing, or pedal edema. NEUROLOGICAL: Gross neurological examination did not reveal any focal deficits. SKIN: No rashes. For other chronic medical problems and hospitalization course please refer to my dictation of history from yesterday Patient Condition at Discharge: Serious Plan - Discharge Summary Discharge Rx Participant: Yes New Discharge Prescriptions: New Furosemide [Lasix] 40 mg PO DAILY #30 tablet Aspirin 81 mg PO BID chew Continue traMADol HCL [Ultram] 100 mg PO BID PRN PRN Reason: Pain INSULIN ASPART (NovoLOG) [NovoLOG (formulary)] 43 unit SQ BID INSULIN ASPART (NovoLOG) [NovoLOG (formulary)] 53 unit SQ QAM Metoprolol Tartrate [Lopressor] 25 mg PO BID Insulin Glargine [Lantus] 73 unit SQ BID Atorvastatin [Lipitor] 40 mg PO HS busPIRone HCl [Buspar] 20 mg PO BID Gabapentin [Neurontin] 300 mg PO TID Ergocalciferol [Vitamin D2 (DRISDOL)] 50,000 unit PO Q30D Apixaban [Eliquis] 5 mg PO BID Amiodarone [Cordarone] 200 mg PO DAILY Discontinued Furosemide [Lasix] 20 mg PO DAILY Aspirin [Adult Low Dose Aspirin EC] 81 mg PO DAILY Discharge Medication List Apixaban [Eliquis] 5 mg PO BID 05/04/19 [History] Atorvastatin [Lipitor] 40 mg PO HS 05/04/19 [History] Ergocalciferol [Vitamin D2 (DRISDOL)] 50,000 unit PO Q30D 05/04/19 [History] Gabapentin [Neurontin] 300 mg PO TID 05/04/19 [History] INSULIN ASPART (NovoLOG) [NovoLOG (formulary)] 43 unit SQ BID 05/04/19 [History] INSULIN ASPART (NovoLOG) [NovoLOG (formulary)] 53 unit SQ QAM 05/04/19 [History] Insulin Glargine [Lantus] 73 unit SQ BID 05/04/19 [History] Metoprolol Tartrate [Lopressor] 25 mg PO BID 05/04/19 [History] busPIRone HCl [Buspar] 20 mg PO BID 05/04/19 [History] traMADol HCL [Ultram] 100 mg PO BID PRN 05/04/19 [History] Furosemide [Lasix] 40 mg PO DAILY #30 tablet 05/05/19 [Rx] Amiodarone [Cordarone] 200 mg PO DAILY 05/06/19 [History] Aspirin 81 mg PO BID chew 05/06/19 [Rx] Follow up Appointment(s)/Referral(s): Hunter Aguilar MD [STAFF PHYSICIAN] - 1 Week Zachary Parsons MD [STAFF PHYSICIAN] - 1 Week Tracy Frazier MD [STAFF PHYSICIAN] - 1 Week [facility] [Primary Care Provider] - 3 Days Patient Instructions/Handouts: Transient Ischemic Attack (DC) Activity/Diet/Wound Care/Special Instructions: Please go to cardiology office on Wednesday at 10:15 am to have 30 day monitor placed. Discharge Disposition: HOME SELF-CARE
--- NOTE | 2019-05-06 13:35 | P.PN ---
Subjective Progress Note Date: 05/06/19 This is a pleasant 64-year-old gentleman with known history of diabetes, hypertension, hyperlipidemia, paroxysmal atrial fibrillation, coronary artery disease with prior bypass surgery in 2014, [facility] but recently has been cleared to have a post closing specialist locally. He states that he has had one office visit, he thinks it may have been with Dr. Poole. He is scheduled in May to undergo an echocardiogram as well as a stress test. Patient presents to the hospital on this occasion following a presyncopal episode. He is overall wheelchair bound, he drives a scooter around because of spinal stenosis, he was playing cards with his , had an episode where he had some blurred vision in his left eye, and felt lightheaded, shortly thereafter patient had lost consciousness for approximately 10-15 seconds. He was not any more diaphoretic than his usual, his face was flushed in color, no paleness noted. He did not lose bowel or bladder function. There is no notable facial droop, no nausea vomiting or diarrhea. Apparently after the syncopal episode patient did have a brief episode of chest discomfort which resolved on its own, but overall patient states he has not been experiencing any chest discomfort. He has however lost about 40 pounds recently because he is trying to eliminate carts from his diet. His initially thought that his syncope may related to hypoglycemia however his blood sugar was in the range of 180. His blood pressure at that time was also stable at 1:30 to 140 systolic with a heart rate in the 70s to 80s. 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 According to the patient, he was also born with one kidney and recently it was noted that his renal function was slightly worse so his dose of home Lasix was decreased in half and his KIMBERLEE inhibitor had been discontinued. CT of the brain was performed which showed bilateral parietal white matter hypodensity consistent with small vessel ischemia. No hemorrhage. No evidence of cortical infarct. Chest x-ray did not reveal any active cardiopulmonary disease. Carotid Doppler study showed steno sis of the bilateral internal carotid arteries of greater than 70%, left greater than right with extension into the external carotid arteries. CTA of the neck is recommended for further evaluation and more accurate degree of stenosis. Blood pressure 148/70 heart rate in the 60s, 97% on room air. White blood cell count 8.4, hemoglobin 12.8, platelet count 135. D-dimer 0.5. Sodium 140, potassium 3.9, BUN 32 and creatinine of 1.8. Troponins negative 3. At the time of my examination, he is sitting up in bed, denies any dizziness or lightheadedness. EKG shows a normal sinus rhythm with no acute changes. No arrhythmias have been noted on the monitor. 05/06/2019 Patient was seen and examined this morning, he feels well, denies any dizziness or lightheadedness, no palpitations. No evidence of any orthostatic hypotension. No significant pauses noted so far on the monitor. From our perspective he may be able to be discharged home today to follow-up with Dr. Poole in the office. A 30 day event monitor has been requested on discharge. Echocardiogram with Doppler study revealed an ejection fraction of 45-50%. Objective - Vital Signs Vital signs: Vital Signs Temp 98.3 F 05/06/19 07:30 Pulse 74 05/06/19 09:25 Resp 16 05/06/19 07:30 BP 169/72 05/06/19 09:25 Pulse Ox 99 05/06/19 07:30 Intake & Output 05/05/19 05/06/19 05/06/19 18:59 06:59 18:59 Intake Total 960 360 Balance 960 360 Weight 180.9 kg Intake: Oral 960 360 Other: # Voids 2 2 - Exam PHYSICAL EXAMINATION: GENERAL: 64-year-old gentleman in no acute distress at the time of my examination HEENT: Head is atraumatic, normocephalic. Pupils equal, round. Sclera anicteric. Conjunctiva are clear. Mucous membranes of the mouth are moist. Neck is supple. There is no elevated jugular venous pressure. Bilateral carotid bruits are heard. HEART EXAMINATION: Heart S1-S2 normal, no murmur or gallop is heard CHEST EXAMINATION: Lungs are clear to auscultation and precussion. No chest wall tenderness is noted on palpation or with deep breathing. ABDOMEN: Soft, obese, nontender. Bowel sounds are heard. No organomegaly noted. EXTREMITIES: 2+ peripheral pulses with 2+ evidence of peripheral edema and no calf tenderness noted. NEUROLOGIC patient is awake, alert and oriented 3 . - Labs CBC & Chem 7: 05/04/19 20:50 05/04/19 20:50 Labs: Abnormal Lab Results - Last 24 Hours (Table) 05/05/19 05/05/19 05/06/19 Range/Units 16:44 21:05 06:24 POC Glucose (mg/dL) 114 H 132 H 156 H (75-99) mg/dL 05/06/19 Range/Units 11:53 POC Glucose (mg/dL) 153 H (75-99) mg/dL Assessment and Plan Plan: Assessment and plan #1 syncope, rule out cardiac causes. We'll check orthostatics and continue to monitor for any tachycardia or bradycardia arrhythmias. Patient also has documented bilateral significant carotid stenosis #2 diabetes #3 hypertension #4 hyperlipidemia #5 spinal stenosis #6 paroxysmal atrial fibrillation on Eliquis for anticoagulation #7 coronary artery disease with prior bypass surgery Plan Echocardiogram with Doppler study was performed which revealed an ejection fraction of 45-50%. No documented orthostatics, no significant bradycardia or tachyarrhythmias noted on the monitor. Patient may be discharged home today from our perspective to follow-up with Dr. Eddy in the office post discharge. 30 day event monitor on discharge. DNP note has been reviewed, I agree with a documented findings and plan of care. Patient was seen and examined.
[2019-05-31] MEDS ORDERED: ERGOCALCIFEROL 50,000 UNIT CAP PO SCH (09:00)
== END 2019-05-06 13:05 | disposition home or self-care (01) ==
LOC: EC 20:25 → 3SCARD 22:32
PROVIDERS: ADMIT Hospitalist; ATTEND Hospitalist
DX: R55 Syncope and collapse (principal); H53.8 Other visual disturbances; R07.89 Other chest pain; E66.01 Morbid (severe) obesity due to excess calories; Z68.42 Body mass index [BMI] 45.0-49.9, adult; G47.33 Obstructive sleep apnea (adult) (pediatric); E78.5 Hyperlipidemia, unspecified; F41.9 Anxiety disorder, unspecified; I10 Essential (primary) hypertension; I25.10 Atherosclerotic heart disease of native coronary artery without angina pectoris; M54.9 Dorsalgia, unspecified; G89.29 Other chronic pain; I35.8 Other nonrheumatic aortic valve disorders; I48.0 Paroxysmal atrial fibrillation; Z95.1 Presence of aortocoronary bypass graft; Z99.3 Dependence on wheelchair; M48.00 Spinal stenosis, site unspecified; I65.23 Occlusion and stenosis of bilateral carotid arteries; Q60.0 Renal agenesis, unilateral; Z86.14 Personal history of Methicillin resistant Staphylococcus aureus infection; N28.9 Disorder of kidney and ureter, unspecified; Z79.01 Long term (current) use of anticoagulants; Z79.4 Long term (current) use of insulin; Z79.82 Long term (current) use of aspirin; Z79.899 Other long term (current) drug therapy; Z86.73 Personal history of transient ischemic attack (TIA), and cerebral infarction without residual deficits; Z87.891 Personal history of nicotine dependence
CPT/HCPCS: 96360; 99285; 36415; 93005; 93306; 85379; 80061; 80053; 83605; 84484 ×2; 85025; 85610; 85730; 81003; 71046; 93880; 70450; G0378 ×3; Q9950

== ENCOUNTER → 2019-12-28 | Outpatient (CLI) | payer MEDICARE ==
[2019-12-28 13:36] LABS: HCT 45.4 % (39.0-53.0); HGB 15.2 gm/dL (13.0-17.5); MCH 33.4 pg (25.0-35.0); MCHC 33.5 g/dL (31.0-37.0); MCV 99.5 fL (80.0-100.0); Macrocytosis Slight; Mean Platelet Volume 8.5; Platelet Count 124 k/uL (150-450); RBC 4.56 m/uL (4.30-5.90); RDW 14.6 % (11.5-15.5); WBC 7.6 k/uL (3.8-10.6)
[2019-12-28 13:58] LABS: Appearance,Urine Clear (Clear); Bilirubin,Urine Negative (Negative); Blood,Urine Negative (Negative); Color,Urine Yellow; Glucose,Urine (UA) Negative (Negative); Ketones,Urine Negative (Negative); Leukocyte Esterase,Urine Negative (Negative); Nitrite,Urine Negative (Negative); PH, Urine 5.5 (5.0-8.0); Protein,Urine Negative (Negative); Specific Gravity,Urine 1.011 (1.001-1.035); Urobilinogen,Urine <2.0 mg/dL (<2.0)
[2019-12-28 19:34] LABS: Ferritin 86.8 ng/mL (22.0-322.0)
[2019-12-28 21:13] LABS: % Iron Saturation 32.08 (15.00-50.00); African American GFR (CKD) 52.7 (60.0-200.0); Albumin 4.6 g/dL (3.80-4.90); Albumin/Globulin Ratio 2.19 (1.60-3.17); BUN/Creat Ratio 17.5 Ratio (12.00-20.00); Calcium 9.4 mg/dL (8.7-10.3); Globulin 2.1 g/dL (1.6-3.3); Non-African American GFR(CKD) 45.5 (60.0-200.0); Phosphorus 3.2 mg/dL (2.4-5.1); Potassium 4.1 mmol/L (3.5-5.5); Total Bilirubin 0.9 mg/dL (0.2-1.2); Total Protein 6.7 g/dL (6.2-8.2)
[2019-12-28 23:46] LABS: Urine Creatinine 71.6 mg/dL
== END | disposition home or self-care (01) ==
LOC: LABWHC1 13:05
PROVIDERS: ATTEND Nurse Practitioner Family
DX: D64.9 Anemia, unspecified (principal); N18.3 Chronic kidney disease, stage 3 (moderate); N39.0 Urinary tract infection, site not specified; N25.81 Secondary hyperparathyroidism of renal origin; E55.9 Vitamin D deficiency, unspecified
CPT/HCPCS: 36415; 80053; 81003; 82043; 82570; 82728; 83540; 83550; 83735; 83970; 84100; 85027

== ENCOUNTER → 2020-01-10 | Outpatient (CLI) | payer OTHER ==
--- NOTE | 2020-01-10 13:06 | XR ---
EXAMINATION TYPE: XR knee complete bilateral DATE OF EXAM: 01/10/2020 CLINICAL HISTORY: Bilateral knee pain, chronic. TECHNIQUE: Three views of both knees were obtained. COMPARISON: None. FINDINGS: There is [id number] articulation of the medial compartment on the right in near bone-on-b one articulation of the medial compartment on the left. Opposing surface sclerosis and subchondral cy st formation are seen of both medial compartments with probable small medial femoral condylar 3-4 mm osteochondral defects bilaterally. Tricompartmental protuberant osteophytes are seen bilaterally. No acute fracture of either knee. Surgical clips are noted on the left in the soft tissues medially. Mod erate atherosclerosis bilaterally. Weightbearing images demonstrate [id number] articulation of both medial compartments and narrowing of the lateral compartment. IMPRESSION: Severe medial compartment arthropathy bilaterally with moderate arthropathy of the latera l compartment and patellofemoral compartment bilaterally.
== END ==
LOC: RADXRMAIN 12:33
PROVIDERS: ATTEND Orthopaedic Surgery
DX: M12.862 Other specific arthropathies, not elsewhere classified, left knee (principal); M12.861 Other specific arthropathies, not elsewhere classified, right knee

== ENCOUNTER 2020-01-12 11:39 | Emergency (ER) | payer OTHER ==
[2020-01-12 11:44] VITALS: PULSE 64; TEMP 98
[2020-01-12] MEDS ORDERED: HYDROcodone/APAP 5-325MG 1 EACH TAB PO STA (12:19)
--- NOTE | 2020-01-12 12:19 | ED ---
General Adult HPI - General Chief complaint: Extremity Injury, Lower Stated complaint: left foot ankle pain Time Seen by Provider: 01/12/20 11:47 Source: patient Mode of arrival: ambulatory Limitations: no limitations - History of Present Illness Initial comments: Dictation was produced using [employer] dictation software. please excuse any grammatical, word or spelling errors. Chief Complaint: 64-year-old male with multiple comorbidities presents with ankle pain. History of Present Illness: Patient is a 64-year-old male he was accompanied by his . Patient had a consultation to orthopedic surgery on outpatient basis. He had outpatient x-rays ordered for bilateral knees. Patient reports that 2 days ago these x-rays are performed. Patient states that he feels as though they were rough with his leg and he was forced to be in painful positions in order to get this x-ray. After the x-rays are performed patient is complaining of left ankle pain. His complaining of some mild swelling. He states that he is in the anterior left ankle Patient denies any previous injury to that ankle. Denies any numbness or paresthesias. Patient has normal swelling to his bilateral feet however his swelling is slightly worse in his left leg. Denies any history of gout. The ROS documented in this emergency department record has been reviewed and confirmed by me. Those systems with pertinent positive or negative responses have been documented in the HPI. All other systems are other negative and/or noncontributory. PHYSICAL EXAM: General Impression: Alert and oriented x3, not in acute distress HEENT: Normocephalic atraumatic, extra-ocular movements intact, pupils equal and reactive to light bilaterally, mucous membranes moist. Cardiovascular: Heart regular rate and rhythm, S1&S2 audible, no murmurs, rubs or gallops Chest: Lungs clear to auscultation bilaterally, no rhonchi, no wheeze, no rales Abdomen: Bowel sounds present, abdomen soft, non-tender, non-distended, no organomegaly Musculoskeletal: Pulses present and equal in all extremities, no peripheral edema Motor: no focal deficits noted Left ankle: No external differences compared to the right ankle. Minimal swelling noted to the lateral malleolus. Mild tenderness to palpation over the left anterior ankle ormidfoot tenderness. Neurological: CN II-XII grossly intact, no focal motor or sensory deficits noted Skin: Intact with no visualized rashes Psych: Normal affect and mood ED course: 64-year-old male presents with clinical presentation consistent with left ankle strain. Vital signs upon arrival are within acceptable limits. Physical examination is benign. Patient appears comfortable. He is counseled on rice therapy. X-rays unremarkable. Patient given a compression Gian bandage. Patient has a appointment with orthopedic surgeries told to mention to them his ankle issues. He will be seeing them for his knee pain. Patient given by mouth analgesia with improvement of symptoms. Patient prescription for by mouth analgesia - Related Data Home Medications Medication Instructions Recorded Confirmed Apixaban [Eliquis] 5 mg PO BID 05/04/19 01/12/20 Atorvastatin [Lipitor] 40 mg PO HS 05/04/19 01/12/20 Ergocalciferol [Vitamin D2 50,000 unit PO Q30D 05/04/19 01/12/20 (DRISDOL)] Gabapentin [Neurontin] 300 mg PO TID 05/04/19 01/12/20 INSULIN ASPART (NovoLOG) [NovoLOG See Protocol SQ AC-TID 05/04/19 01/12/20 (formulary)] Insulin Glargine [Lantus] 73 unit SQ BID 05/04/19 01/12/20 Metoprolol Tartrate [Lopressor] 25 mg PO BID 05/04/19 01/12/20 busPIRone HCl [Buspar] 20 mg PO BID 05/04/19 01/12/20 traMADol HCL [Ultram] 100 mg PO BID PRN 05/04/19 01/12/20 Amiodarone [Cordarone] 200 mg PO DAILY 05/06/19 01/12/20 Previous Rx's Medication Instructions Recorded Furosemide [Lasix] 40 mg PO DAILY #30 tablet 05/05/19 Aspirin 81 mg PO BID chew 05/06/19 HYDROcodone/APAP 5-325MG [Olean 1 tab PO Q6HR PRN 3 Days #12 tab 01/12/20 5-325] Allergies Allergy/AdvReac Type Severity Reaction Status Date / Time bee venom protein (honey bee) Allergy Anaphylaxis Verified 01/12/20 12:50 watermelon Allergy Anaphylaxis Verified 01/12/20 12:50 Review of Systems ROS Statement: Those systems with pertinent positive or pertinent negative responses have been documented in the HPI. ROS Other: All systems not noted in ROS Statement are negative. Past Medical History Past Medical History: Diabetes Mellitus, Hyperlipidemia, Hypertension, Renal Disease Additional Past Medical History / Comment(s): 1 kidney (congenital), MIGUEL History of Any Multi-Drug Resistant Organisms: MRSA Date of last positivie culture/infection: 2013 MDRO Source:: Right foot Past Surgical History: Coronary Bypass/CABG, Tonsillectomy Additional Past Surgical History / Comment(s): Cataract Bilat, Ganglian cyst removed from left arm, 2015 ([facility]) Past Anesthesia/Blood Transfusion Reactions: No Reported Reaction Past Psychological History: Anxiety Smoking Status: Never smoker Past Alcohol Use History: Occasional Past Drug Use History: None Reported - Past Family History Mother Family Medical History: Congestive Heart Failure (CHF), Diabetes Mellitus Father Family Medical History: Congestive Heart Failure (CHF), COPD, Diabetes Mellitus, Hyperlipidemia, Hypertension, Myocardial Infarction ([place]) General Exam Limitations: no limitations Course Vital Signs 01/12/20 11:43 Temperature 98.0 F Pulse Rate 64 Respiratory 18 Rate Blood Pressure 105/59 O2 Sat by Pulse 95 Oximetry Disposition Clinical Impression: Ankle strain Disposition: HOME SELF-CARE Condition: Good Instructions (If sedation given, give patient instructions): Ankle Sprain (ED) Additional Instructions: Prescriptions were sent to your preferred pharmacy. Please follow-up with orthopedic surgery for knees but remember to mention ankle issues. Prescriptions: HYDROcodone/APAP 5-325MG [Olean 5-325] 1 tab PO Q6HR PRN 3 Days #12 tab PRN Reason: Severe Pain Is patient prescribed a controlled substance at d/c from ED?: Yes If prescribed controlled substance>3 days was MAPS reviewed?: Prescribed <3 Days Referrals: [facility]Clinic [Primary Care Provider] - 1-2 days Time of Disposition: 14:02
--- NOTE | 2020-01-12 12:39 | XR ---
EXAMINATION TYPE: XR ankle complete LT DATE OF EXAM: 01/12/2020 COMPARISON: None HISTORY: Ankle pain TECHNIQUE: Three-view left ankle FINDINGS: There is diffuse soft tissue swelling. This is greater along the lateral aspect of the ankl e. The ankle mortise appears intact. Achilles tendon calcaneal heel spur is present. No displaced fra ctures are evident. IMPRESSION: 1. Diffuse soft tissue swelling greater along the lateral malleolus. 2. Follow-up exams can be performed 7-10 days from acute trauma for continued pain.
[2020-01-12 14:23] VITALS: BP 129/78; RESP 60
== END 2020-01-12 14:22 | disposition home or self-care (01) ==
LOC: EC 11:39
DX: S96.912A Strain of unspecified muscle and tendon at ankle and foot level, left foot, initial encounter (principal); E11.9 Type 2 diabetes mellitus without complications; E78.5 Hyperlipidemia, unspecified; I10 Essential (primary) hypertension; F41.9 Anxiety disorder, unspecified; Z79.01 Long term (current) use of anticoagulants; Z79.4 Long term (current) use of insulin; Z79.899 Other long term (current) drug therapy; Z91.030 Bee allergy status; Z91.018 Allergy to other foods; Z95.5 Presence of coronary angioplasty implant and graft; Z86.14 Personal history of Methicillin resistant Staphylococcus aureus infection; X50.9XXA Other and unspecified overexertion or strenuous movements or postures, initial encounter
CPT/HCPCS: 99283

== ENCOUNTER → 2020-04-19 | Outpatient (CLI) | payer OTHER ==
--- NOTE | 2020-04-19 14:23 | US ---
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 Morbidly obese patient. EXAM MEASUREMENTS: Right Kidney: 16.5 x 6.0 x 5.8 cm Left Kidney: not visualized Right Kidney: measures large Left Kidney: not seen Bladder: wnl Normal Post Void Residual: yes/bladder not seen after patient voided. Probable splenule seen in LUQ, left kidney not seen. Patient states he was born without a left kidney . No hydronephrosis of the right kidney. No nephrolithiasis of the right kidney. IMPRESSION: 1. No abnormal post void residual within the urinary bladder. 2. Nonvisualization of the left kidney, congenitally absent per patient history. 3. Hypertrophy of the right kidney measuring up to 16.5 cm. No hydronephrosis.
== END | disposition home or self-care (01) ==
LOC: RADUSWWP 13:17
PROVIDERS: ATTEND Urology
DX: N28.81 Hypertrophy of kidney (principal)
CPT/HCPCS: 76770

== ENCOUNTER → 2020-04-29 | Outpatient (CLI) | payer MEDICARE, OTHER ==
[2020-04-29 18:53] LABS: Albumin 4.8 g/dL (3.80-4.90)
[2020-04-29 19:01] LABS: Prolactin 7.9 ng/mL (2.1-17.7)
[2020-04-29 19:02] LABS: Estradiol 57.9 pg/mL; Follicle Stimulating Hormone 20.5 mIU/mL
[2020-05-03 20:51] LABS: Albumin, LC/MS/MS 4.5 g/dL (3.6-5.1); Testosterone, Free, LC/MS/MS 28.5 pg/mL (46.0-224.0); Testosterone, Total, LC/MS/MS 225 ng/dL (250-1100)
== END | disposition home or self-care (01) ==
LOC: LABWHC1 09:35
PROVIDERS: ATTEND Urology
DX: N40.1 Benign prostatic hyperplasia with lower urinary tract symptoms (principal); N52.01 Erectile dysfunction due to arterial insufficiency
CPT/HCPCS: 36415; 82040; 82670; 82947; 83001; 83002; 84146; 84153; 84270; 84403; 84436; 84443; 84479

== ENCOUNTER 2020-07-11 10:55 | Emergency (ER) | payer OTHER ==
[2020-07-11 11:03] VITALS: RESP 18; TEMP 98.7
--- NOTE | 2020-07-11 11:22 | ED ---
General Adult HPI - General Chief complaint: Headache Stated complaint: hypertension Time Seen by Provider: 07/11/20 11:21 Source: patient Mode of arrival: wheelchair Limitations: no limitations - History of Present Illness Initial comments: Patient is a 65-year-old male with history of hypertension, hyperlipidemia, diabetes and renal disease presenting to the emergency department with a chief complaint of high blood pressure and headache. Patient reports for the past week she has been having right-sided headaches the particularly start around 5 PM which is the time he takes his 25 mg of metoprolol. Patient reports the headaches last about 1.5 hours and spontaneously resolved. Patient also reports intermittently he developed white streaking lines. 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 Patient also reports over the last week his blood pressure has been going up and down with highs of 170s/90s. Patient denies any chest pain or shortness of breath nausea vomiting lightheaded or dizziness. Patient states his blood pressure has been stable today but his primary care physician wanted him to be evaluated in the ED. - Related Data Home Medications Medication Instructions Recorded Confirmed Apixaban [Eliquis] 5 mg PO BID 05/04/19 07/11/20 Atorvastatin [Lipitor] 40 mg PO HS 05/04/19 07/11/20 Ergocalciferol [Vitamin D2 50,000 unit PO Q30D 05/04/19 07/11/20 (DRISDOL)] Gabapentin [Neurontin] 300 mg PO TID 05/04/19 07/11/20 INSULIN ASPART (NovoLOG) [NovoLOG See Protocol SQ AC-TID 05/04/19 07/11/20 (formulary)] Insulin Glargine [Lantus] 73 unit SQ BID 05/04/19 07/11/20 Metoprolol Tartrate [Lopressor] 25 mg PO BID 05/04/19 07/11/20 busPIRone HCl [Buspar] 20 mg PO BID 05/04/19 07/11/20 traMADol HCL [Ultram] 50 - 100 mg PO TID PRN 05/04/19 07/11/20 Aspirin 81 mg PO DAILY 07/11/20 07/11/20 Ferrous Sulfate [Feosol] 325 mg PO DAILY 07/11/20 07/11/20 cycloSPORINE 0.05% OPHTH SOLN 1 applicator BOTH EYES BID 07/11/20 07/11/20 [Restasis] Previous Rx's Medication Instructions Recorded Furosemide [Lasix] 40 mg PO DAILY #30 tablet 05/05/19 Allergies Allergy/AdvReac Type Severity Reaction Status Date / Time allopurinol Allergy Rash/Hives Verified 07/11/20 12:55 bee venom protein (honey bee) Allergy Anaphylaxis Verified 07/11/20 12:46 watermelon Allergy Anaphylaxis Verified 07/11/20 12:46 doxycycline AdvReac Diarrhea Verified 07/11/20 12:55 sildenafil AdvReac Unknown Verified 07/11/20 12:55 Review of Systems ROS Statement: Those systems with pertinent positive or pertinent negative responses have been documented in the HPI. ROS Other: All systems not noted in ROS Statement are negative. Past Medical History Past Medical History: Diabetes Mellitus, Hyperlipidemia, Hypertension, Renal Disease Additional Past Medical History / Comment(s): 1 kidney (congenital), MIGUEL History of Any Multi-Drug Resistant Organisms: MRSA Date of last positivie culture/infection: 2013 MDRO Source:: Right foot Past Surgical History: Coronary Bypass/CABG, Tonsillectomy Additional Past Surgical History / Comment(s): Cataract Bilat, Ganglian cyst removed from left arm, 2014 (Triple) Past Anesthesia/Blood Transfusion Reactions: No Reported Reaction Past Psychological History: Anxiety Smoking Status: Former smoker Past Alcohol Use History: Occasional Past Drug Use History: None Reported - Past Family History Mother Family Medical History: Congestive Heart Failure (CHF), Diabetes Mellitus Father Family Medical History: Congestive Heart Failure (CHF), COPD, Diabetes Mellitus, Hyperlipidemia, Hypertension, Myocardial Infarction ([place]) General Exam Limitations: no limitations General appearance: alert, in no apparent distress, obese Head exam: Present: atraumatic, normocephalic, normal inspection Eye exam: Present: normal appearance, PERRL, EOMI, other (Limited ophthalmic evaluation reveals no acute abnormalities.) Pupils: Present: normal accommodation ENT exam: Present: normal exam, normal oropharynx, mucous membranes moist Neck exam: Present: normal inspection, full ROM. Absent: tenderness, meningismus Respiratory exam: Present: normal lung sounds bilaterally. Absent: respiratory distress, wheezes Cardiovascular Exam: Present: regular rate, normal rhythm, systolic murmur GI/Abdominal exam: Present: soft. Absent: guarding Extremities exam: Present: normal inspection, full ROM. Absent: tenderness Back exam: Present: normal inspection, full ROM. Absent: tenderness Neurological exam: Present: alert, oriented X3 Psychiatric exam: Present: normal affect, normal mood Skin exam: Present: warm, dry, intact, normal color Course Vital Signs 07/11/20 07/11/20 10:59 12:39 Temperature 98.7 F Pulse Rate 67 64 Respiratory 18 18 Rate Blood Pressure 128/77 136/77 O2 Sat by Pulse 97 96 Oximetry EKG Findings - EKG Comments: EKG Findings:: Sinus rhythm with PAC. Ventricular rate 63, NC 186, QRS 92, QTC 450. Medical Decision Making - Medical Decision Making Patient is 65-year-old male with history of hypertension, renal disease, hyperlipidemia, diabetes presenting to emergency Department with chief complaint of high blood pressure and headache. His blood pressure has been going up and down for the past one week along with intermittent headaches that only lasts for about 1.5 hours. Patient is asymptomatic today. His blood pressure throughout the ED course has been within normal limits. EKG shows sinus rhythm. CBC showed decreased platelets. CMP reveals hyperglycemia of 200. It also shows elevated BUN/creatinine along with decreased GFR, however patient has renal disease and this appears to be his baseline. I was not able to detect any abnormalities in the ophthalmic evaluation due to the limited exam. Patient does not have any visual disturbances at the moment. He was advised to follow- up with his primary care physician. Patient is not complaining of any other symptoms . Strict return parameters were thoroughly discussed the patient is understanding and agreeable. Case discussed physician. - Lab Data Result diagrams: 07/11/20 11:50 07/11/20 11:50 Lab Results 07/11/20 07/11/20 Range/Units 11:50 11:50 WBC 7.2 (3.8-10.6) k/uL RBC 4.11 L (4.30-5.90) m/uL Hgb 13.9 (13.0-17.5) gm/dL Hct 41.5 (39.0-53.0) % MCV 101.1 H (80.0-100.0) fL MCH 33.8 (25.0-35.0) pg MCHC 33.5 (31.0-37.0) g/dL RDW 14.0 (11.5-15.5) % Plt Count 114 L (150-450) k/uL Neutrophils % 70 % Lymphocytes % 20 % Monocytes % 4 % Eosinophils % 5 % Basophils % 1 % Neutrophils # 5.0 (1.3-7.7) k/uL Lymphocytes # 1.5 (1.0-4.8) k/uL Monocytes # 0.3 (0-1.0) k/uL Eosinophils # 0.3 (0-0.7) k/uL Basophils # 0.0 (0-0.2) k/uL Macrocytosis Slight Sodium 136 L (137-145) mmol/L Potassium 4.3 (3.5-5.1) mmol/L Chloride 105 (98-107) mmol/L Carbon Dioxide 25 (22-30) mmol/L Anion Gap 6 mmol/L BUN 26 H (9-20) mg/dL Creatinine 1.34 H (0.66-1.25) mg/dL Est GFR (CKD-EPI)AfAm 65 (>60 ml/min/1.73 sqM) Est GFR (CKD-EPI)NonAf 56 (>60 ml/min/1.73 sqM) Glucose 205 H (74-99) mg/dL Calcium 9.5 (8.4-10.2) mg/dL Total Bilirubin 1.0 (0.2-1.3) mg/dL AST 43 (17-59) U/L ALT 29 (4-49) U/L Alkaline Phosphatase 103 (38-126) U/L Total Protein 6.9 (6.3-8.2) g/dL Albumin 4.2 (3.5-5.0) g/dL Disposition Clinical Impression: Headache Disposition: HOME SELF-CARE Condition: Stable Instructions (If sedation given, give patient instructions): Acute Headache (ED) Additional Instructions: Follow with your primary care physician and canvas shop laborer. Return to emergency department if symptoms worsen. Is patient prescribed a controlled substance at d/c from ED?: No Referrals: [facility]inic [Primary Care Provider] - 1-2 days Time of Disposition: 12:53
[2020-07-11 12:09] LABS: Basophils % (A) 1 %; Eosinophils # (A) 0.3 k/uL (0-0.7); Eosinophils % (A) 5 %; HCT 41.5 % (39.0-53.0); HGB 13.9 gm/dL (13.0-17.5); Lymphocytes # (A) 1.5 k/uL (1.0-4.8); Lymphocytes % (A) 20 %; MCH 33.8 pg (25.0-35.0); MCHC 33.5 g/dL (31.0-37.0); MCV 101.1 fL (80.0-100.0); Macrocytosis Slight; Mean Platelet Volume 8.4; Monocytes # (A) 0.3 k/uL (0-1.0); Monocytes % (A) 4 %; Neutrophils % (A) 70 %; Platelet Count 114 k/uL (150-450); RBC 4.11 m/uL (4.30-5.90); WBC 7.2 k/uL (3.8-10.6)
[2020-07-11 12:22] LABS: Albumin 4.2 g/dL (3.5-5.0); Calcium 9.5 mg/dL (8.4-10.2); Potassium 4.3 mmol/L (3.5-5.1); Total Protein 6.9 g/dL (6.3-8.2)
[2020-07-11 12:39] VITALS: BP 136/77; PULSE 64
== END 2020-07-11 13:09 | disposition home or self-care (01) ==
LOC: EC 10:55
DX: R51 Headache (principal); I10 Essential (primary) hypertension; E78.5 Hyperlipidemia, unspecified; E11.9 Type 2 diabetes mellitus without complications; Q63.9 Congenital malformation of kidney, unspecified; Z79.01 Long term (current) use of anticoagulants; Z79.4 Long term (current) use of insulin; Z79.899 Other long term (current) drug therapy; Z91.018 Allergy to other foods; Z91.030 Bee allergy status; Z87.891 Personal history of nicotine dependence; Z95.1 Presence of aortocoronary bypass graft
CPT/HCPCS: 36415; 80053; 85025; 93005; 99284

== ENCOUNTER → 2020-09-09 | Outpatient (CLI) | payer OTHER ==
--- NOTE | 2020-09-09 15:30 | US ---
EXAMINATION TYPE: US carotid duplex BILAT DATE OF EXAM: 09/09/2020 COMPARISON: 05/05/2019 CLINICAL HISTORY: 65-year-old male I65.22 CAROTID STENOSIS. TECHNIQUE: Carotid duplex ultrasound examination. Indirect Doppler criteria was utilized. FINDINGS: EXAM MEASUREMENTS: RIGHT: Peak Systolic Velocity (PSV) cm/sec ----- Right CCA: 72.9 ----- Right ICA: 198.9 ----- Right ECA: 186.4 ICA/CCA ratio: 2.7 RIGHT: End Diastole cm/sec ----- Right CCA: 15.4 ----- Right ICA: 20.0 ----- Right ECA: 0.0 LEFT: Peak Systolic Velocity (PSV) cm/sec ----- Left CCA: 54.7 ----- Left ICA: 362.8 ----- Left ECA: 225.5 ICA/CCA ratio: 6.6 LEFT: End Diastole cm/sec ----- Left CCA: 14.9 ----- Left ICA: 63.1 ----- Left ECA: 0.0 VERTEBRALS (direction of flow): Right Vertebral: Antegrade Left Vertebral: Antegrade Rhythm: Normal Elevated velocities bilaterally, more on left, increased on left when compared to previous IMPRESSION: 1. Measurement suggests a severe (greater than 70%) left ICA stenosis. Peak systolic velocity has inc reased as compared to 05/05/2019. 2. Measurements suggest a moderate (50-69%) stenosis on the right. Criteria for Assigning % of Stenosis / Diameter reduction (Estimation based on the indirect measurements of the internal carotid artery velocities (ICA PSV). 1. Normal (no stenosis)=ICA PSV < 125 cm/s: ratio < 2.0: ICA EDV<40 cm/s. 2. Less than 50% stenosis=ICA PSV < 125 cm/s: ratio < 2.0: ICA EDV<40 cm/s. 3. 50 to 69% stenosis=ICA PSV of 125 to 230 cm/s: ration 2.0 ? 4.0: ICA EDV 40-100 cm/s. 4. Greater than 70% stenosis to near occlusion= ICA PSV > 230 cm/s: ratio > 4.0: ICA EDV > 100 cm/s. 5. Near occlusion= ICA PSV velocities may be low or undetectable: variable ratio and ICA EDV. 6. Total occlusion=unable to detect flow.
== END | disposition home or self-care (01) ==
LOC: RADUSWWP 12:40
DX: I65.22 Occlusion and stenosis of left carotid artery (principal)
CPT/HCPCS: 93880

== ENCOUNTER 2022-01-14 11:20 | Inpatient (IN) | payer OTHER, MEDICARE ==
--- NOTE | 2022-01-14 12:05 | ED ---
General Adult HPI - General Source: patient, EMS, RN notes reviewed, old records reviewed Mode of arrival: EMS Limitations: no limitations <Matthew Park - Last Filed: 01/14/22 12:03> <Glenn Cuba - Last Filed: 01/14/22 17:26> - General Chief complaint: Shortness of Breath Stated complaint: JOEL Time Seen by Provider: 01/14/22 11:25 - History of Present Illness Initial comments: This is a 66-year-old male who presents emergency department with past medical history significant for bypass surgery as well as congestive heart today. Patient states he was diagnosed with COVID in the beginning of November. Patient states over the last couple of weeks is getting more more short of breath and noticed more more edema on his legs. Patient denies any recent fever chills or cough. Patient denies any chest pain or palpitations. 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 Patient states the breathing is gotten worse and just today so he came to the emergency department. (Matthew Park) - Related Data Home Medications Medication Instructions Recorded Confirmed Apixaban [Eliquis] 5 mg PO BID 05/04/19 01/14/22 Metoprolol Tartrate [Lopressor] 25 mg PO BID 05/04/19 01/14/22 busPIRone HCl [Buspar] 20 mg PO BID 05/04/19 01/14/22 Ferrous Sulfate [Feosol] 325 mg PO DAILY 07/11/20 01/14/22 Aspirin EC [Ecotrin Low Dose] 81 mg PO DAILY 12/10/21 01/14/22 Atorvastatin [Lipitor] 40 mg PO HS 12/10/21 01/14/22 Dextran 70/Hypromellose [Genteal 1 drop BOTH EYES QID 12/10/21 01/14/22 Tears 0.1%-0.3% Drop] EPINEPHrine (Auto Inject) [Epipen] 0.3 mg IM ONCE PRN 12/10/21 01/14/22 Gabapentin [Neurontin] 400 mg PO TID 12/10/21 01/14/22 Insulin Aspart [NovoLOG Flexpen] 43 units SQ AC-BID@1200,1700 12/10/21 01/14/22 Insulin Aspart [NovoLOG Flexpen] 53 units SQ AC-BRKFST 12/10/21 01/14/22 Insulin Aspart [NovoLOG Flexpen] See Protocol SQ AC-TID 12/10/21 01/14/22 Insulin Glargine,Hum.rec.anlog 73 unit SQ BID 12/10/21 01/14/22 [Lantus Solostar Pen] Ketoconazole 2% Cream [Nizoral 2%] 1 applic TOPICAL BID 12/10/21 01/14/22 Ketoconazole [Ketoconazole 2% 1 applic TOPICAL DAILY 12/10/21 01/14/22 Shampoo] Latanoprost [Xalatan 0.005%] 1 drop BOTH EYES BID 12/10/21 01/14/22 Lifitegrast [Xiidra] 1 drop BOTH EYES BID 12/10/21 01/14/22 Miconazole Nitrate [Lotrimin AF 1 applic TOPICAL BID 12/10/21 01/14/22 Powder] Trolamine Salicylate [Myoflex] 1 applic TOPICAL DIRECTED 12/10/21 01/14/22 Ergocalciferol [Vitamin D2 (1250 1,250 mcg PO Q30D 01/14/22 01/14/22 Mcg = 88612 Iu)] Previous Rx's Medication Instructions Recorded Acetaminophen Tab [Tylenol] 650 mg PO Q6HR PRN tab 12/15/21 Albuterol Inhaler [Ventolin Hfa 2 puff INHALATION RT-QID 30 Days 12/15/21 Inhaler] #1 gm Ascorbic Acid [Vitamin C] 1,000 mg PO DAILY 30 Days #60 tab 12/15/21 Cholecalciferol [Vitamin D3 (125 125 mcg PO DAILY 30 Days #30 tablet 12/15/21 Mcg = 5000 Iu)] Dexamethasone 6 mg PO DAILY 5 Days #5 tablet 12/15/21 Furosemide [Lasix] 40 mg PO BID 30 Days #60 tablet 12/15/21 Sodium Bicarbonate Tab 650 mg PO BID 30 Days #60 tab 12/15/21 Zinc Sulfate [Orazinc] 220 mg PO DAILY 14 Days #14 cap 12/15/21 Allergies Allergy/AdvReac Type Severity Reaction Status Date / Time allopurinol Allergy Rash/Hives Verified 01/14/22 14:35 bee venom protein (honey bee) Allergy Anaphylaxis Verified 01/14/22 14:35 watermelon Allergy Anaphylaxis Verified 01/14/22 14:35 doxycycline AdvReac Diarrhea Verified 01/14/22 14:35 sildenafil AdvReac headache Verified 01/14/22 14:35 Review of Systems ROS Other: All systems not noted in ROS Statement are negative. <Matthew Park - Last Filed: 01/14/22 12:03> ROS Other: All systems not noted in ROS Statement are negative. <Glenn Cuba - Last Filed: 01/14/22 17:26> ROS Statement: Those systems with pertinent positive or pertinent negative responses have been documented in the HPI. Past Medical History Past Medical History: Atrial Fibrillation, Coronary Artery Disease (CAD), Diabetes Mellitus, Hyperlipidemia, Hypertension, Renal Disease Additional Past Medical History / Comment(s): 1 kidney (congenital), MIGUEL not using a CPAP for now, Obesity, DM type 2, CABG 2014 History of Any Multi-Drug Resistant Organisms: MRSA Date of last positivie culture/infection: 2013 MDRO Source:: Right foot Past Surgical History: Coronary Bypass/CABG, Tonsillectomy Additional Past Surgical History / Comment(s): Cataract Bilat, Ganglian cyst removed from left arm, 2014 ([facility]) Past Anesthesia/Blood Transfusion Reactions: No Reported Reaction Past Psychological History: Anxiety Smoking Status: Former smoker Past Alcohol Use History: Occasional Past Drug Use History: None Reported - Past Family History Mother Family Medical History: Congestive Heart Failure (CHF), Diabetes Mellitus Father Family Medical History: Congestive Heart Failure (CHF), COPD, Diabetes Mellitus, Hyperlipidemia, Hypertension, Myocardial Infarction ([place]) <Matthew Park - Last Filed: 01/14/22 12:03> General Exam Limitations: no limitations <Matthew Park - Last Filed: 01/14/22 12:03> - General Exam Comments Initial Comments: GENERAL: Patient is well-developed and well-nourished. Patient is nontoxic and well- hydrated and is in mild distress. ENT: Neck is soft and supple. No significant lymphadenopathy is noted. Oropharynx is clear. Moist mucous membranes. Neck has full range of motion without eliciting any pain. EYES: The sclera were anicteric and conjunctiva were pink and moist. Extraocular movements were intact and pupils were equal round and reactive to light. Eyelids were unremarkable. PULMONARY: Unlabored respirations. Good breath sounds bilaterally. Crackles bilaterally CARDIOVASCULAR: There is a regular rate and rhythm without any murmurs gallops or rubs. ABDOMEN: Soft and nontender with normal bowel sounds. SKIN: Skin is clear with no lesions or rashes and otherwise unremarkable. NEUROLOGIC: Patient is alert and oriented x3. Cranial nerves II through XII are grossly intact. Motor and sensory are also intact. Normal speech, volume and content. Symmetrical smile. MUSCULOSKELETAL: Normal extremities with adequate strength and full range of motion. 2+ edema bilaterally LYMPHATICS: No significant lymphadenopathy is noted PSYCHIATRIC: Normal psychiatric evaluation. (Matthew Park) Course Vital Signs 01/14/22 01/14/22 01/14/22 11:29 11:34 12:23 Temperature 98.4 F Pulse Rate 87 Respiratory 25 H 30 H Rate Blood Pressure 125/61 O2 Sat by Pulse 77 L 95 Oximetry Medical Decision Making <Matthew Park - Last Filed: 01/14/22 12:03> - Lab Data Result diagrams: 01/14/22 12:24 01/14/22 12:55 <Glenn Cuba - Last Filed: 01/14/22 17:26> - Medical Decision Making EKG shows sinus rhythm at 87 bpm AZ interval 289 QRS is 90 QT interval 376 QTC is 420. Patient's EKG shows no ST segment elevation and no ST segment depression. (Matthew Park) Patient care sent out to me by previous shift physician. Briefly, patient is a 66-year-old male presents emergency department for shortness of breath. Patient had coded 19 in November. Complains today of worsening shortness of breath with pitting edema to the lower extremities. Plan at sign out was to follow-up with pending labs and imaging studies. Laboratory evaluation obtained. CBC is unremarkable. Metabolic panel is within acceptable limits. D-dimer 6.67. Metabolic panel shows normal findings. Again shows elevated troponin 0.108 with a brain natruretic peptide of 1300. Initial lactic was 2.5 however repeat lactic 4 hours later was negative. COVID- 19 test is negative. Chest x-ray shows scattered infiltrates suggesting pneumonia. CT angios the chest shows findings consistent with COVID-19. No PE noted. Patient reevaluated at bedside at 5:20 PM found to be in stable medical condition. He is on high flow nasal cannula and satting well above 90%. He is comfortable appearing. Patient started on heparin for elevated troponin. (Glenn Cuba) - Lab Data Lab Results 01/14/22 01/14/22 01/14/22 Range/Units 12:24 12:24 12:24 WBC 7.3 (3.8-10.6) k/uL RBC 3.21 L (4.30-5.90) m/uL Hgb 11.0 L (13.0-17.5) gm/dL Hct 33.9 L (39.0-53.0) % MCV 105.6 H (80.0-100.0) fL MCH 34.3 (25.0-35.0) pg MCHC 32.4 (31.0-37.0) g/dL RDW 16.1 H (11.5-15.5) % Plt Count 383 D (150-450) k/uL MPV 7.1 Neutrophils % 78 % Lymphocytes % 12 % Monocytes % 5 % Eosinophils % 3 % Basophils % 1 % Neutrophils # 5.6 (1.3-7.7) k/uL Lymphocytes # 0.9 L (1.0-4.8) k/uL Monocytes # 0.4 (0-1.0) k/uL Eosinophils # 0.2 (0-0.7) k/uL Basophils # 0.1 (0-0.2) k/uL Hypochromasia Moderate Poikilocytosis Moderate Anisocytosis Slight Macrocytosis Moderate PT 12.6 H (9.0-12.0) sec INR 1.2 H (<1.2) APTT 22.1 (22.0-30.0) sec D-Dimer (<0.60) mg/L FEU Sodium (137-145) mmol/L Potassium (3.5-5.1) mmol/L Chloride (98-107) mmol/L Carbon Dioxide (22-30) mmol/L Anion Gap mmol/L BUN (9-20) mg/dL Creatinine (0.66-1.25) mg/dL Est GFR (CKD-EPI)AfAm (>60 ml/min/1.73 sqM) Est GFR (CKD-EPI)NonAf (>60 ml/min/1.73 sqM) Glucose (74-99) mg/dL Lactic Ac Sepsis Rflx Plasma Lactic Acid Vikas 2.5 H* (0.7-2.0) mmol/L Calcium (8.4-10.2) mg/dL Total Bilirubin (0.2-1.3) mg/dL AST (17-59) U/L ALT (4-49) U/L Alkaline Phosphatase (38-126) U/L Troponin I (0.000-0.034) ng/mL NT-Pro-B Natriuret Pep pg/mL Total Protein (6.3-8.2) g/dL Albumin (3.5-5.0) g/dL Coronavirus (PCR) (Not Detectd) 01/14/22 01/14/22 01/14/22 Range/Units 12:24 12:41 12:55 WBC (3.8-10.6) k/uL RBC (4.30-5.90) m/uL Hgb (13.0-17.5) gm/dL Hct (39.0-53.0) % MCV (80.0-100.0) fL MCH (25.0-35.0) pg MCHC (31.0-37.0) g/dL RDW (11.5-15.5) % Plt Count (150-450) k/uL MPV Neutrophils % % Lymphocytes % % Monocytes % % Eosinophils % % Basophils % % Neutrophils # (1.3-7.7) k/uL Lymphocytes # (1.0-4.8) k/uL Monocytes # (0-1.0) k/uL Eosinophils # (0-0.7) k/uL Basophils # (0-0.2) k/uL Hypochromasia Poikilocytosis Anisocytosis Macrocytosis PT (9.0-12.0) sec INR (<1.2) APTT (22.0-30.0) sec D-Dimer 6.67 H (<0.60) mg/L FEU Sodium (137-145) mmol/L Potassium (3.5-5.1) mmol/L Chloride (98-107) mmol/L Carbon Dioxide (22-30) mmol/L Anion Gap mmol/L BUN (9-20) mg/dL Creatinine (0.66-1.25) mg/dL Est GFR (CKD-EPI)AfAm (>60 ml/min/1.73 sqM) Est GFR (CKD-EPI)NonAf (>60 ml/min/1.73 sqM) Glucose (74-99) mg/dL Lactic Ac Sepsis Rflx Plasma Lactic Acid Vikas (0.7-2.0) mmol/L Calcium (8.4-10.2) mg/dL Total Bilirubin (0.2-1.3) mg/dL AST (17-59) U/L ALT (4-49) U/L Alkaline Phosphatase (38-126) U/L Troponin I (0.000-0.034) ng/mL NT-Pro-B Natriuret Pep 1300 pg/mL Total Protein (6.3-8.2) g/dL Albumin (3.5-5.0) g/dL Coronavirus (PCR) Not Detected (Not Detectd) 01/14/22 01/14/22 01/14/22 Range/Units 12:55 12:55 12:56 WBC (3.8-10.6) k/uL RBC (4.30-5.90) m/uL Hgb (13.0-17.5) gm/dL Hct (39.0-53.0) % MCV (80.0-100.0) fL MCH (25.0-35.0) pg MCHC (31.0-37.0) g/dL RDW (11.5-15.5) % Plt Count (150-450) k/uL MPV Neutrophils % % Lymphocytes % % Monocytes % % Eosinophils % % Basophils % % Neutrophils # (1.3-7.7) k/uL Lymphocytes # (1.0-4.8) k/uL Monocytes # (0-1.0) k/uL Eosinophils # (0-0.7) k/uL Basophils # (0-0.2) k/uL Hypochromasia Poikilocytosis Anisocytosis Macrocytosis PT (9.0-12.0) sec INR (<1.2) APTT (22.0-30.0) sec D-Dimer (<0.60) mg/L FEU Sodium 137 (137-145) mmol/L Potassium 3.9 (3.5-5.1) mmol/L Chloride 100 (98-107) mmol/L Carbon Dioxide 30 (22-30) mmol/L Anion Gap 7 mmol/L BUN 24 H (9-20) mg/dL Creatinine 1.12 (0.66-1.25) mg/dL Est GFR (CKD-EPI)AfAm 80 (>60 ml/min/1.73 sqM) Est GFR (CKD-EPI)NonAf 69 (>60 ml/min/1.73 sqM) Glucose 194 H (74-99) mg/dL Lactic Ac Sepsis Rflx Y Plasma Lactic Acid Vikas (0.7-2.0) mmol/L Calcium 8.4 (8.4-10.2) mg/dL Total Bilirubin 1.3 (0.2-1.3) mg/dL AST 50 (17-59) U/L ALT 27 (4-49) U/L Alkaline Phosphatase 206 H (38-126) U/L Troponin I 0.108 H* (0.000-0.034) ng/mL NT-Pro-B Natriuret Pep pg/mL Total Protein 6.4 (6.3-8.2) g/dL Albumin 3.1 L (3.5-5.0) g/dL Coronavirus (PCR) (Not Detectd) 01/14/22 Range/Units 16:23 WBC (3.8-10.6) k/uL RBC (4.30-5.90) m/uL Hgb (13.0-17.5) gm/dL Hct (39.0-53.0) % MCV (80.0-100.0) fL MCH (25.0-35.0) pg MCHC (31.0-37.0) g/dL RDW (11.5-15.5) % Plt Count (150-450) k/uL MPV Neutrophils % % Lymphocytes % % Monocytes % % Eosinophils % % Basophils % % Neutrophils # (1.3-7.7) k/uL Lymphocytes # (1.0-4.8) k/uL Monocytes # (0-1.0) k/uL Eosinophils # (0-0.7) k/uL Basophils # (0-0.2) k/uL Hypochromasia Poikilocytosis Anisocytosis Macrocytosis PT (9.0-12.0) sec INR (<1.2) APTT (22.0-30.0) sec D-Dimer (<0.60) mg/L FEU Sodium (137-145) mmol/L Potassium (3.5-5.1) mmol/L Chloride (98-107) mmol/L Carbon Dioxide (22-30) mmol/L Anion Gap mmol/L BUN (9-20) mg/dL Creatinine (0.66-1.25) mg/dL Est GFR (CKD-EPI)AfAm (>60 ml/min/1.73 sqM) Est GFR (CKD-EPI)NonAf (>60 ml/min/1.73 sqM) Glucose (74-99) mg/dL Lactic Ac Sepsis Rflx Plasma Lactic Acid Vikas 1.4 (0.7-2.0) mmol/L Calcium (8.4-10.2) mg/dL Total Bilirubin (0.2-1.3) mg/dL AST (17-59) U/L ALT (4-49) U/L Alkaline Phosphatase (38-126) U/L Troponin I (0.000-0.034) ng/mL NT-Pro-B Natriuret Pep pg/mL Total Protein (6.3-8.2) g/dL Albumin (3.5-5.0) g/dL Coronavirus (PCR) (Not Detectd) Disposition <Matthew Park - Last Filed: 01/14/22 12:03> <Glenn Cuba - Last Filed: 01/14/22 17:26> Clinical Impression: Acute respiratory failure with hypoxia Disposition: ADMITTED IP TO THIS HOSP Condition: Critical Referrals: [facility] [Primary Care Provider] - 1-2 days
[2022-01-14 12:40] LABS: Anisocytosis Slight; Basophils # (A) 0.1 k/uL (0-0.2); Basophils % (A) 1 %; Eosinophils # (A) 0.2 k/uL (0-0.7); Eosinophils % (A) 3 %; HCT 33.9 % (39.0-53.0); Hypochromasia Moderate; Lymphocytes # (A) 0.9 k/uL (1.0-4.8); Lymphocytes % (A) 12 %; MCH 34.3 pg (25.0-35.0); MCHC 32.4 g/dL (31.0-37.0); MCV 105.6 fL (80.0-100.0); Macrocytosis Moderate; Mean Platelet Volume 7.1; Monocytes # (A) 0.4 k/uL (0-1.0); Monocytes % (A) 5 %; Neutrophils # (A) 5.6 k/uL (1.3-7.7); Neutrophils % (A) 78 %; Poikilocytosis Moderate; RBC 3.21 m/uL (4.30-5.90); RDW 16.1 % (11.5-15.5); WBC 7.3 k/uL (3.8-10.6)
[2022-01-14 12:43] LABS: Platelet Count 383 k/uL (150-450)
[2022-01-14] MEDS ORDERED: FUROSEMIDE 10 MG/ML 4 ML VIAL IV STA (12:43)
[2022-01-14 12:51] LABS: INR 1.2 (<1.2); Partial Thromboplastin Time 22.1 sec (22.0-30.0); Prothrombin Time 12.6 sec (9.0-12.0)
--- NOTE | 2022-01-14 13:12 | XR ---
EXAMINATION TYPE: XR chest 2V DATE OF EXAM: 01/14/2022 COMPARISON: 12/14/2021 HISTORY: Shortness of breath TECHNIQUE: Frontal and lateral views of the chest are obtained. FINDINGS: Scattered senescent parenchymal changes noted. Hyperinflation compatible with COPD. There is cardiomegaly with scattered infiltrates seen throughout both lung massey. Findings could ref lect pneumonia or underlying congestive failure. Correlate clinically. Mediastinal structures are stable and grossly unremarkable. No evidence for hilar prominence. Degenerative changes dorsal spine. IMPRESSION: 1. There is cardiomegaly with scattered infiltrates seen throughout both lung mas[place]. Findings could reflect pneumonia or underlying congestive failure. Correlate clinically.
[2022-01-14 13:26] LABS: Albumin 3.1 g/dL (3.5-5.0); Calcium 8.4 mg/dL (8.4-10.2); Potassium 3.9 mmol/L (3.5-5.1); Total Bilirubin 1.3 mg/dL (0.2-1.3); Total Protein 6.4 g/dL (6.3-8.2)
--- NOTE | 2022-01-14 16:14 | CT ---
EXAMINATION TYPE: CT angio chest DATE OF EXAM: 01/14/2022 COMPARISON: None HISTORY: Elevated d-dimer, shortness of breath. CT DLP: 969.7 mGycm CONTRAST: CT chest with contrast and 3D reconstruction with MIP imaging is performed with IV Contrast, patient injected with 100 mL of Isovue 370. Contrast-enhanced CT of the chest was performed through the course of the pulmonary arteries with lorena g and mediastinal window settings submitted. 3D reconstruction with MIP imaging was also performed. PULMONARY ARTERIES: The pulmonary arteries and their major tributaries are patent. I do not see kwabena dence for sizable filling defect to suggest pulmonary embolic process. LUNGS: Coarse infiltrates throughout both lung massey compatible with Covid 19 pneumonia. MEDIASTINUM: Thoracic aorta is of normal caliber,however, evaluation is limited given timing of the contrast bolus. If there is concern for thoracic aortic pathology consider JAMES. Correlate clinicall y . The heart is not enlarged. No evidence for mediastinal mass. No mediastinal lymph nodes greater than 1cm. HILAR STRUCTURES: No evidence for mass. No hilar lymph nodes greater than 1 cm. UPPER ABDOMEN: No significant abnormality is seen. IMPRESSION: 1. No evidence for Pulmonary embolism at this time.
[2022-01-14] MEDS ORDERED: DEXAMETHASONE SOD PHOSPHATE 10 MG/ML 1 ML VIAL IV STA (17:03)
[2022-01-14] MEDS ORDERED: HEPARIN SODIUM 1,000 UN/ML (10ML VL) IV ONE (17:20)
[2022-01-14] MEDS ORDERED: ONDANSETRON 4 MG/2 ML VIAL IVP PRN (17:26)
[2022-01-14] MEDS ORDERED: NALOXONE 0.4 MG/ML 1 ML VIAL IV PRN (17:26)
[2022-01-14] MEDS ORDERED: ACETAMINOPHEN TAB 325 MG TAB PO PRN ×2 (17:26→20:32)
[2022-01-14] MEDS ORDERED: ASPIRIN 81 MG PO STA (17:29)
[2022-01-14] MEDS ORDERED: HEPARIN SOD,PORK IN 0.45% NACL 25,000 UNIT in 0.45% NACL 1 250ML.BAG IV SCH (17:30)
[2022-01-14] MEDS: SODIUM CHLORIDE 0.9% 1,000 ML IV SCH (18:33)
[2022-01-14 19:57] LABS: Glucose,Whole Blood 209 mg/dL (75-99)
[2022-01-14] MEDS: GABAPENTIN 400 MG CAP PO SCH (21:17)
[2022-01-14] MEDS: ATORVASTATIN 40 MG TAB PO SCH (21:17)
[2022-01-14] MEDS: METOPROLOL TARTRATE 25 MG TAB PO SCH (21:17)
[2022-01-14] MEDS: busPIRone HCl 10 MG TAB PO SCH (21:17)
[2022-01-14] MEDS: ARTIFICIAL TEARS-HYPROMELLOSE DROPS 15 ML BTL BOTH EYES SCH (21:18)
[2022-01-14] MEDS: INSULIN ASPART (NovoLOG) 100 UNIT/ML VIAL SQ SCH (21:19)
[2022-01-14] MEDS: FUROSEMIDE 40 MG TAB PO SCH (21:19)
[2022-01-14] MEDS: INSULIN DETEMIR (LEVEMIR) 100 UNIT/ML SYR SQ SCH (21:32)
[2022-01-15 00:09] LABS: INR 1.2 (<1.2); Partial Thromboplastin Time 33.4 sec (22.0-30.0); Prothrombin Time 12.4 sec (9.0-12.0)
[2022-01-15] MEDS: HEPARIN SODIUM 1,000 UN/ML (10ML VL) IV PRN ×2 (01:31→10:25)
[2022-01-15 04:02] LABS: Estimated Average Glucose UNC
[2022-01-15 06:18] LABS: Glucose,Whole Blood 418 mg/dL (75-99)
[2022-01-15] MEDS: INSULIN ASPART (NovoLOG) 100 UNIT/ML VIAL SQ SCH ×8 (06:39→17:30)
[2022-01-15] MEDS: PANTOPRAZOLE 40 MG TABLET PO SCH (06:40)
[2022-01-15] MEDS: INSULIN DETEMIR (LEVEMIR) 100 UNIT/ML SYR SQ SCH ×2 (06:40→20:47)
[2022-01-15] MEDS: ALBUTEROL NEBULIZED 2.5 MG/3 ML INHALATION SCH ×4 (07:43→19:57)
[2022-01-15 08:32] LABS: Basophils % (A) 1 %; Eosinophils % (A) 0 %; HCT 33.4 % (39.0-53.0); HGB 10.8 gm/dL (13.0-17.5); Hypochromasia Marked; Lymphocytes # (A) 0.6 k/uL (1.0-4.8); Lymphocytes % (A) 8 %; MCHC 32.2 g/dL (31.0-37.0); MCV 108.7 fL (80.0-100.0); Macrocytosis Marked; Mean Platelet Volume 7.3; Monocytes # (A) 0.2 k/uL (0-1.0); Monocytes % (A) 2 %; Neutrophils # (A) 6.7 k/uL (1.3-7.7); Neutrophils % (A) 88 %; Platelet Count 335 k/uL (150-450); Poikilocytosis Moderate; RBC 3.08 m/uL (4.30-5.90); RDW 15.9 % (11.5-15.5); WBC 7.7 k/uL (3.8-10.6)
[2022-01-15] MEDS: METOPROLOL TARTRATE 25 MG TAB PO SCH ×2 (08:44→20:47)
[2022-01-15] MEDS: ASPIRIN 81 MG PO SCH (08:44)
[2022-01-15] MEDS: FAMOTIDINE 20 MG TAB PO SCH (08:44)
[2022-01-15] MEDS: busPIRone HCl 10 MG TAB PO SCH ×2 (08:44→20:46)
[2022-01-15] MEDS: ZINC SULFATE 220 MG CAP PO SCH (08:44)
[2022-01-15] MEDS: FUROSEMIDE 40 MG TAB PO SCH ×2 (08:45→17:29)
[2022-01-15] MEDS: FERROUS SULFATE 325 MG TAB PO SCH (08:45)
[2022-01-15] MEDS: ASCORBIC ACID 500 MG TAB PO SCH (08:45)
[2022-01-15] MEDS: GABAPENTIN 400 MG CAP PO SCH ×3 (08:45→20:47)
[2022-01-15] MEDS: CHOLECALCIFEROL 125 MCG (5000 IU) TABLET PO SCH (08:45)
[2022-01-15] MEDS: ARTIFICIAL TEARS-HYPROMELLOSE DROPS 15 ML BTL BOTH EYES SCH ×3 (08:50→21:57)
[2022-01-15] MEDS ORDERED: dexAMETHasone 2 MG TAB PO SCH (09:00)
--- NOTE | 2022-01-15 09:37 | P.HPIM ---
History of Present Illness This is a pleasant 66 years old male with past medical history of Atrial Fibrillation on Eliquis , Coronary Artery Disease , Diabetes Mellitus, Hyperlipidemia, Hypertension, Renal Disease with 1 kidney (congenital), MIGUEL not using a CPAP for now, Obesitystatus post , CABG 2014 Presents because of dyspnea for a few weeks progressively getting worse. Also he has recent diagnosis of cough to 3 weeks ago, patient is on home oxygenThe last 2 days was not working.Oxygen saturation at, 70% Patient states that he was diagnosed with Covid pneumonia about 3 weeks ago where he was discharged from Hospital and he was doing well on 4 L oxygen via nasal cannula however over the last 2 days he was noticed that his oxygen saturation is going down and he went to see his doctor while he is at Dr. office he passed out as per the so she called 911 for him and brought him to the hospital. He doesn't have chest pain, he has some cough and a few clear phlegm. He has little looser stool but no overt diarrhea, no vomiting, no abdominal pain, is eating well. No dysuria or urgency. In the splenic but no weakness or numbness or blurred vision. He denies smoking, alcohol or illicit drugs. On admission patient was hypoxic 77% on room air, Seroquel 50-50 L per minute of oxygen via high flow nasal cannula. Also he is tachypneic. INR is 1.2 BMP showing creatinine is normal at 1.1. Troponin is slightly elevated at 0.1. Glucose around 200 Coronavirus: Not detected, during this admission however it was tested positive for on 12/10/2021 or 3 weeks ago WBCs 7.3, hemoglobin 11.0. ProBNP is 1300. Troponin is elevated at 0.108 Chest x-ray showed cardiomegaly with scattered infiltrates seen throughout both lung massey findings could reflect pneumonia or underlying congestive heart failure CTA of the chest: No evidence of pulmonary embolism. Coarse infiltrates throughout both lung massey compatible with COVID-19 pneumonia EKG showing normal sinus rhythm at [address]-T changes Echocardiogram done last month showing ejection fraction 55-60%, on 12/10/2021 Patient received 1 dose of IV Lasix, dexamethasone, heparin drip and aspirin 324 mg Patient is on oral Lasix 40 mg twice daily which is a home dose Review of Systems Review of systems CONSTITUTIONAL: No fever, no malaise, no fatigue. HEENT: No recent visual problems or hearing problems. Denied any sore throat. CARDIOVASCULAR: No orthopnea, PND, no palpitations, no syncope. PULMONARY: No chest wall tenderness cough, no hemoptysis. GASTROINTESTINAL: No diarrhea, no nausea, no vomiting, no abdominal pain. Normoactive bowel sounds. NEUROLOGICAL: No headaches, no weakness, no numbness. HEMATOLOGICAL: Denies any bleeding or petechiae. GENITOURINARY: Denies any burning micturition, frequency, or urgency. MUSCULOSKELETAL/RHEUMATOLOGICAL: Denies any joint pain, swelling, or any muscle pain. ENDOCRINE: Denies any polyuria or polydipsia. Past Medical History Past Medical History: Atrial Fibrillation, Coronary Artery Disease (CAD), Diabetes Mellitus, Hyperlipidemia, Hypertension, Renal Disease Additional Past Medical History / Comment(s): 1 kidney (congenital), MIGUEL not using a CPAP for now, Obesity, DM type 2, CABG 2014 History of Any Multi-Drug Resistant Organisms: MRSA Date of last positivie culture/infection: 2013 MDRO Source:: Right foot Past Surgical History: Coronary Bypass/CABG, Tonsillectomy Additional Past Surgical History / Comment(s): Cataract Bilat, Ganglian cyst removed from left arm, 2014 (Triple) Past Anesthesia/Blood Transfusion Reactions: No Reported Reaction Past Psychological History: Anxiety Smoking Status: Former smoker Past Alcohol Use History: Occasional Past Drug Use History: None Reported - Past Family History Mother Family Medical History: Congestive Heart Failure (CHF), Diabetes Mellitus Father Family Medical History: Congestive Heart Failure (CHF), COPD, Diabetes Mellitus, Hyperlipidemia, Hypertension, Myocardial Infarction (CT) Medications and Allergies Home Medications Medication Instructions Recorded Confirmed Type Apixaban [Eliquis] 5 mg PO BID 05/04/19 01/14/22 History Metoprolol Tartrate [Lopressor] 25 mg PO BID 05/04/19 01/14/22 History busPIRone HCl [Buspar] 20 mg PO BID 05/04/19 01/14/22 History Ferrous Sulfate [Feosol] 325 mg PO DAILY 07/11/20 01/14/22 History Aspirin EC [Ecotrin Low Dose] 81 mg PO DAILY 12/10/21 01/14/22 History Atorvastatin [Lipitor] 40 mg PO HS 12/10/21 01/14/22 History Dextran 70/Hypromellose [Genteal 1 drop BOTH EYES QID 12/10/21 01/14/22 History Tears 0.1%-0.3% Drop] EPINEPHrine (Auto Inject) [Epipen] 0.3 mg IM ONCE PRN 12/10/21 01/14/22 History Gabapentin [Neurontin] 400 mg PO TID 12/10/21 01/14/22 History Insulin Aspart [NovoLOG Flexpen] 43 units SQ AC-BID@1200,1700 12/10/21 01/14/22 History Insulin Aspart [NovoLOG Flexpen] 53 units SQ AC-BRKFST 12/10/21 01/14/22 History Insulin Aspart [NovoLOG Flexpen] See Protocol SQ AC-TID 12/10/21 01/14/22 History Insulin Glargine,Hum.rec.anlog 73 unit SQ BID 12/10/21 01/14/22 History [Lantus Solostar Pen] Ketoconazole 2% Cream [Nizoral 2%] 1 applic TOPICAL BID 12/10/21 01/14/22 History Ketoconazole [Ketoconazole 2% 1 applic TOPICAL DAILY 12/10/21 01/14/22 History Shampoo] Latanoprost [Xalatan 0.005%] 1 drop BOTH EYES BID 12/10/21 01/14/22 History Lifitegrast [Xiidra] 1 drop BOTH EYES BID 12/10/21 01/14/22 History Miconazole Nitrate [Lotrimin AF 1 applic TOPICAL BID 12/10/21 01/14/22 History Powder] Trolamine Salicylate [Myoflex] 1 applic TOPICAL DIRECTED 12/10/21 01/14/22 History Acetaminophen Tab [Tylenol] 650 mg PO Q6HR PRN tab 12/15/21 01/14/22 Rx Albuterol Inhaler [Ventolin Hfa 2 puff INHALATION RT-QID 30 Days 12/15/21 01/14/22 Rx Inhaler] #1 gm Ascorbic Acid [Vitamin C] 1,000 mg PO DAILY 30 Days #60 tab 12/15/21 01/14/22 Rx Cholecalciferol [Vitamin D3 (125 125 mcg PO DAILY 30 Days #30 tablet 12/15/21 01/14/22 Rx Mcg = 5000 Iu)] Dexamethasone 6 mg PO DAILY 5 Days #5 tablet 12/15/21 01/14/22 Rx Furosemide [Lasix] 40 mg PO BID 30 Days #60 tablet 12/15/21 01/14/22 Rx Sodium Bicarbonate Tab 650 mg PO BID 30 Days #60 tab 12/15/21 01/14/22 Rx Zinc Sulfate [Orazinc] 220 mg PO DAILY 14 Days #14 cap 12/15/21 01/14/22 Rx Ergocalciferol [Vitamin D2 (1250 1,250 mcg PO Q30D 01/14/22 01/14/22 History Mcg = 58145 Iu)] Allergies Allergy/AdvReac Type Severity Reaction Status Date / Time allopurinol Allergy Rash/Hives Verified 01/14/22 14:35 bee venom protein (honey bee) Allergy Anaphylaxis Verified 01/14/22 14:35 watermelon Allergy Anaphylaxis Verified 01/14/22 14:35 doxycycline AdvReac Diarrhea Verified 01/14/22 14:35 sildenafil AdvReac headache Verified 01/14/22 14:35 Physical Exam Vitals: Vital Signs Temp Pulse Pulse Resp BP BP Pulse Ox 01/15/22 08:00 89 16 138/76 96 01/15/22 07:54 88 01/15/22 07:48 95 01/15/22 07:44 87 01/15/22 04:34 95 01/15/22 04:00 97.3 F L 81 22 133/60 95 01/15/22 00:00 97.6 F 71 22 122/58 95 01/14/22 20:00 98.2 F 101 H 22 169/72 95 01/14/22 19:53 169/72 01/14/22 17:00 89 20 112/59 98 01/14/22 16:00 87 20 131/65 99 01/14/22 15:00 85 20 102/62 100 01/14/22 14:00 91 22 129/68 98 01/14/22 13:00 87 22 121/62 96 01/14/22 12:23 30 H 01/14/22 11:34 95 01/14/22 11:29 98.4 F 87 25 H 125/61 77 L Intake and Output 01/14/22 01/15/22 01/15/22 22:59 06:59 14:59 Intake Total 551.841 118 Output Total 1225 Balance -673.159 118 Intake: Intake, IV Titration 71.841 Amount Heparin Sod,Pork in 0.45% 71.841 NaCl 25,000 unit In 0.45 % NaCl 1 250ml.bag @ 5. 512 UNITS/KG/HR 10.001 mls/hr IV .Q24H CESAR Rx#: [id number] Oral 480 118 Output: Urine 1225 Other: # Bowel Movements 1 Weight 181.437 kg GENERAL: The patient is alert and oriented x3, not in any acute distress. Well developed, well nourished. HEENT: Pupils are round and equally reacting to light. EOMI. No scleral icterus. No conjunctival pallor. Normocephalic, atraumatic. No pharyngeal erythema. No thyromegaly. CARDIOVASCULAR: S1 and S2 present. No murmurs, rubs, or gallops. -PULMONARY: Chest is clear to auscultation, no wheezing or crackles. Bilateral scattered crepitation. Mildly tachypneic ABDOMEN: Soft, nontender, nondistended, normoactive bowel sounds. No palpable organomegaly. MUSCULOSKELETAL: No joint swelling or deformity. EXTREMITIES: No cyanosis, clubbing, or pedal edema. NEUROLOGICAL: Gross neurological examination did not reveal any focal deficits. SKIN: No rashes. no petechiae. Results CBC & Chem 7: 01/15/22 07:45 01/14/22 12:55 Labs: Abnormal Lab Results - Last 24 Hours (Table) 01/14/22 01/14/22 01/14/22 Range/Units 12:24 12:24 12:24 RBC 3.21 L (4.30-5.90) m/uL Hgb 11.0 L (13.0-17.5) gm/dL Hct 33.9 L (39.0-53.0) % MCV 105.6 H (80.0-100.0) fL RDW 16.1 H (11.5-15.5) % Lymphocytes # 0.9 L (1.0-4.8) k/uL Macrocytosis PT 12.6 H (9.0-12.0) sec INR 1.2 H (<1.2) APTT (22.0-30.0) sec D-Dimer (<0.60) mg/L FEU BUN (9-20) mg/dL Glucose (74-99) mg/dL POC Glucose (mg/dL) (75-99) mg/dL Plasma Lactic Acid Vikas 2.5 H* (0.7-2.0) mmol/L Alkaline Phosphatase (38-126) U/L Troponin I (0.000-0.034) ng/mL Albumin (3.5-5.0) g/dL 01/14/22 01/14/22 01/14/22 Range/Units 12:24 12:55 12:55 RBC (4.30-5.90) m/uL Hgb (13.0-17.5) gm/dL Hct (39.0-53.0) % MCV (80.0-100.0) fL RDW (11.5-15.5) % Lymphocytes # (1.0-4.8) k/uL Macrocytosis PT (9.0-12.0) sec INR (<1.2) APTT (22.0-30.0) sec D-Dimer 6.67 H (<0.60) mg/L FEU BUN 24 H (9-20) mg/dL Glucose 194 H (74-99) mg/dL POC Glucose (mg/dL) (75-99) mg/dL Plasma Lactic Acid Vikas (0.7-2.0) mmol/L Alkaline Phosphatase 206 H (38-126) U/L Troponin I 0.108 H* (0.000-0.034) ng/mL Albumin 3.1 L (3.5-5.0) g/dL 01/14/22 01/14/22 01/15/22 Range/Units 19:56 23:47 06:16 RBC (4.30-5.90) m/uL Hgb (13.0-17.5) gm/dL Hct (39.0-53.0) % MCV (80.0-100.0) fL RDW (11.5-15.5) % Lymphocytes # (1.0-4.8) k/uL Macrocytosis PT 12.4 H (9.0-12.0) sec INR 1.2 H (<1.2) APTT 33.4 H (22.0-30.0) sec D-Dimer (<0.60) mg/L FEU BUN (9-20) mg/dL Glucose (74-99) mg/dL POC Glucose (mg/dL) 209 H 418 H (75-99) mg/dL Plasma Lactic Acid Vikas (0.7-2.0) mmol/L Alkaline Phosphatase (38-126) U/L Troponin I (0.000-0.034) ng/mL Albumin (3.5-5.0) g/dL 01/15/22 01/15/22 Range/Units 07:45 07:45 RBC 3.08 L (4.30-5.90) m/uL Hgb 10.8 L (13.0-17.5) gm/dL Hct 33.4 L (39.0-53.0) % MCV 108.7 H (80.0-100.0) fL RDW 15.9 H (11.5-15.5) % Lymphocytes # (1.0-4.8) k/uL Macrocytosis Marked A PT (9.0-12.0) sec INR (<1.2) APTT 40.5 H (22.0-30.0) sec D-Dimer (<0.60) mg/L FEU BUN (9-20) mg/dL Glucose (74-99) mg/dL POC Glucose (mg/dL) (75-99) mg/dL Plasma Lactic Acid Vikas (0.7-2.0) mmol/L Alkaline Phosphatase (38-126) U/L Troponin I (0.000-0.034) ng/mL Albumin (3.5-5.0) g/dL Thrombosis Risk Factor Assmnt - Choose All That Apply Each Factor Represents 1 point: Obesity (BMI >25) Each Risk Factor Represents 2 Points: Age 61-74 years Thrombosis Risk Factor Assessment Total Risk Factor Score: 3 Thrombosis Risk Factor Assessment Level: Moderate Risk Assessment and Plan Assessment: Most likely Bilateral Covid pneumonia Acute on chronic hypoxic respiratory failure Increased inflammatory markers Elevated troponin with mild ST depression, rule out cardiac causes Diabetes mellitus Hypertension Hyperlipidemia Chronic atrial fibrillation on Eliquis History of coronary artery disease status post CABG Congenital or kidney History of obstructive sleep apnea not on CPAP Plan: This is a pleasant 66 years old female with covid pneumonia, and elevated tr oponin with some mild ST depression in view of history of CABG Continue with dexamethasone Continue with vitamin C, vitamin D and zinc Continue with insulin and monitor glucose Patient is on oral Lasix Patient currently on heparin drip. Also on aspirin Cardiology and pulmonary consult Labs and medication were reviewed.. Continue same treatment. Continue with symptomatic treatment. Resume home medication. Monitor lytes and vitals. DVT and GI prophylaxis. Further recommendations depends on the clinical course of the patient DVT prophylaxis: heparin drip GI Prophylaxis: Pepcid PT/OT: Pending Prognosis is guarded
[2022-01-15 09:56] LABS: Polychromasia Present
[2022-01-15 10:53] LABS: African American GFR (CKD) 83 (>60 ml/min/1.73 sqM); Anion Gap 7 mmol/L; Blood Urea Nitrogen 26 mg/dL (9-20); Calcium 8.4 mg/dL (8.4-10.2); Carbon Dioxide 29 mmol/L (22-30); Chloride 101 mmol/L (98-107); Glucose 404 mg/dL (74-99); Magnesium 2.1 mg/dL (1.6-2.3); Non-African American GFR(CKD) 72 (>60 ml/min/1.73 sqM); Potassium 4.7 mmol/L (3.5-5.1); Sodium 137 mmol/L (137-145)
--- NOTE | 2022-01-15 11:00 | ECHOF ---
Referral Reason:repeat, worsening shortness of breath MEASUREMENTS -------- HEIGHT: 185.4 cm WEIGHT: 181.4 kg BP: IVSd: 1.0 cm (0.6 - 1.1) LVIDd: 3.7 cm (3.9 - 5.3) LVPWd: 0.9 cm (0.6 - 1.1) IVSs: 1.7 cm LVIDs: 2.2 cm LVPWs: 1.5 cm Ao Diam: 3.6 cm (2.0 - 3.7) AV Cusp: 1.1 cm (1.5 - 2.6) LA Diam: 4.0 cm (2.7 - 3.8) MV EXCURSION: 19.523 mm (> 18.000) MV EF SLOPE: 75 mm/s (70 - 150) EPSS: 2.9 cm MV E Javi: 0.96 m/s MV DecT: 197 ms MV A Javi: 0.99 m/s MV E/A Ratio: 0.97 RAP: 5.00 mmHg RVSP: 36.89 mmHg FINDINGS -------- Sinus rhythm. This was a technically adequate study. The left ventricular size is normal. Left ventricular wall thickness is normal. Overall left vent ricular systolic function is normal with, an EF between 55 - 60 %. The right ventricle is normal in size. The left atrial size is normal. The right atrial size is normal. The aortic valve was not well visualized. The mitral valve is normal. Mild mitral regurgitation is present. The tricuspid valve appears structurally normal. Mild tricuspid regurgitation present. There is m ild pulmonary hypertension. The right ventricular systolic pressure, as measured by Doppler, is 36. 89mmHg. The pulmonic valve was not well visualized. The aortic root size is normal. IVC Not well visulized. There is no pericardial effusion. CONCLUSIONS -------- 1. Left ventricular wall thickness is normal. 2. Overall left ventricular systolic function is normal with, an EF between 55 - 60 %. 3. Mild mitral regurgitation is present. 4. Mild tricuspid regurgitation present. 5. There is mild pulmonary hypertension. 6. There is no pericardial effusion. [employer]: So Velásquez RDCS
[2022-01-15] MEDS: APIXABAN 5 MG TAB PO SCH ×3 (12:11→20:47)
--- NOTE | 2022-01-15 12:12 | P.CNPUL ---
History of Present Illness Consult date: 01/15/22 Requesting physician: German Xiao Reason for consult: dyspnea, cough, hypoxemia, pneumonia, abnormal CXR/CT Chief complaint: Shortness of breath, lower extremity edema. History of present illness: Pulmonary consult dated 01/15/2022. 66-year-old male brought into the emergency room, by EMS, yesterday, with complaints of shortness of breath. The patient apparently was inpatient in November for coronavirus associated pneumonia. He apparently was also seen by my partner in our office, on Wednesday. Over the last couple weeks, the patient states that he become more and more short of breath. In addition, he is noted more and more significant edema of his lower extremities. He denied any fever or chills. There is no cough. No chest pain or chest discomfort. No palpitations. Apparently when he saw my partner in the office, it was recommended that the patient get some additional diuretic, and also some corticosteroids. He apparently sees a nurse practitioner at the [facility] [place] as a primary. Also sees one of the flexo folder gluer operator, and one of the personal lines account executive as well. He has a history of atrial fibrillation, CAD, diabetes, hyperlipidemia, hypertension, and chronic kidney disease. The patient is status post bypass grafting in 2014. He does use home O2 at 4 L/m. Currently, he's on 8 L nasal cannula. Is getting saline at 20 mL an hour, and IV heparin via weightbased protocol. White count 7.7, hemoglobin 10.8, hematocrit 33.4, and platelet count 330,000. PTT is 40.5. Sodium, potassium, chloride, CO2, anion gap, are all normal. BUN is 26 with a creatinine of 1.08. Troponin is 0.059. N-terminal proBNP is 1300. Testing for tomlinson- virus was negative. Chest x-ray reveals cardiomegaly, scattered bilateral infiltrates. CT angiogram was negative for central pulmonary embolism, and lung massey showed diffuse infiltrates, consistent with postinflammatory pulmonary fibrosis. Review of Systems REVIEW OF SYSTEMS: CONSTITUTIONAL: [Negative.] NEUROLOGIC: [ Negative.] HEENT: [ Negative.] CARDIAC: Weight gain with lower extremity edema. PULMONARY: Shortness of breath, minimal cough. GI: [Negative.] : [Negative.] RHEUMATOLOGIC: [ Negative.] IMMUNOLOGIC: [ Negative.] ENDOCRINE: [Negative. ] DERMATOLOGIC: [Negative.] Past Medical History Past Medical History: Atrial Fibrillation, Coronary Artery Disease (CAD), Diabetes Mellitus, Hyperlipidemia, Hypertension, Renal Disease Additional Past Medical History / Comment(s): 1 kidney (congenital), MIGUEL not using a CPAP for now, Obesity, DM type 2, CABG 2014 History of Any Multi-Drug Resistant Organisms: MRSA Date of last positivie culture/infection: 2013 MDRO Source:: Right foot Past Surgical History: Coronary Bypass/CABG, Tonsillectomy Additional Past Surgical History / Comment(s): Cataract Bilat, Ganglian cyst removed from left arm, 2015 ([facility]) Past Anesthesia/Blood Transfusion Reactions: No Reported Reaction Past Psychological History: Anxiety Smoking Status: Former smoker Past Alcohol Use History: Occasional Past Drug Use History: None Reported - Past Family History Mother Family Medical History: Congestive Heart Failure (CHF), Diabetes Mellitus Father Family Medical History: Congestive Heart Failure (CHF), COPD, Diabetes Mellitus, Hyperlipidemia, Hypertension, Myocardial Infarction ([place]) Medications and Allergies Home Medications Medication Instructions Recorded Confirmed Type Apixaban [Eliquis] 5 mg PO BID 05/04/19 01/14/22 History Metoprolol Tartrate [Lopressor] 25 mg PO BID 05/04/19 01/14/22 History busPIRone HCl [Buspar] 20 mg PO BID 05/04/19 01/14/22 History Ferrous Sulfate [Feosol] 325 mg PO DAILY 07/11/20 01/14/22 History Aspirin EC [Ecotrin Low Dose] 81 mg PO DAILY 12/10/21 01/14/22 History Atorvastatin [Lipitor] 40 mg PO HS 12/10/21 01/14/22 History Dextran 70/Hypromellose [Genteal 1 drop BOTH EYES QID 12/10/21 01/14/22 History Tears 0.1%-0.3% Drop] EPINEPHrine (Auto Inject) [Epipen] 0.3 mg IM ONCE PRN 12/10/21 01/14/22 History Gabapentin [Neurontin] 400 mg PO TID 12/10/21 01/14/22 History Insulin Aspart [NovoLOG Flexpen] 43 units SQ AC-BID@1200,1700 12/10/21 01/14/22 History Insulin Aspart [NovoLOG Flexpen] 53 units SQ AC-BRKFST 12/10/21 01/14/22 History Insulin Aspart [NovoLOG Flexpen] See Protocol SQ AC-TID 12/10/21 01/14/22 History Insulin Glargine,Hum.rec.anlog 73 unit SQ BID 12/10/21 01/14/22 History [Lantus Solostar Pen] Ketoconazole 2% Cream [Nizoral 2%] 1 applic TOPICAL BID 12/10/21 01/14/22 History Ketoconazole [Ketoconazole 2% 1 applic TOPICAL DAILY 12/10/21 01/14/22 History Shampoo] Latanoprost [Xalatan 0.005%] 1 drop BOTH EYES BID 12/10/21 01/14/22 History Lifitegrast [Xiidra] 1 drop BOTH EYES BID 12/10/21 01/14/22 History Miconazole Nitrate [Lotrimin AF 1 applic TOPICAL BID 12/10/21 01/14/22 History Powder] Trolamine Salicylate [Myoflex] 1 applic TOPICAL DIRECTED 12/10/21 01/14/22 History Acetaminophen Tab [Tylenol] 650 mg PO Q6HR PRN tab 12/15/21 01/14/22 Rx Albuterol Inhaler [Ventolin Hfa 2 puff INHALATION RT-QID 30 Days 12/15/21 01/14/22 Rx Inhaler] #1 gm Ascorbic Acid [Vitamin C] 1,000 mg PO DAILY 30 Days #60 tab 12/15/21 01/14/22 Rx Cholecalciferol [Vitamin D3 (125 125 mcg PO DAILY 30 Days #30 tablet 12/15/21 01/14/22 Rx Mcg = 5000 Iu)] Dexamethasone 6 mg PO DAILY 5 Days #5 tablet 12/15/21 01/14/22 Rx Furosemide [Lasix] 40 mg PO BID 30 Days #60 tablet 12/15/21 01/14/22 Rx Sodium Bicarbonate Tab 650 mg PO BID 30 Days #60 tab 12/15/21 01/14/22 Rx Zinc Sulfate [Orazinc] 220 mg PO DAILY 14 Days #14 cap 12/15/21 01/14/22 Rx Ergocalciferol [Vitamin D2 (1250 1,250 mcg PO Q30D 01/14/22 01/14/22 History Mcg = 51177 Iu)] Allergies Allergy/AdvReac Type Severity Reaction Status Date / Time allopurinol Allergy Rash/Hives Verified 01/14/22 14:35 bee venom protein (honey bee) Allergy Anaphylaxis Verified 01/14/22 14:35 watermelon Allergy Anaphylaxis Verified 01/14/22 14:35 doxycycline AdvReac Diarrhea Verified 01/14/22 14:35 sildenafil AdvReac headache Verified 01/14/22 14:35 Physical Exam Osteopathic Statement: *. No significant issues noted on an osteopathic stru ctural exam other than those noted in the History and Physical/Consult. Vitals: Vital Signs Temp Pulse Pulse Resp BP BP Pulse Ox 01/15/22 11:48 90 01/15/22 11:39 88 01/15/22 08:00 89 16 138/76 96 01/15/22 07:54 88 01/15/22 07:48 95 01/15/22 07:44 87 01/15/22 04:34 95 01/15/22 04:00 97.3 F L 81 22 133/60 95 01/15/22 00:00 97.6 F 71 22 122/58 95 01/14/22 20:00 98.2 F 101 H 22 169/72 95 01/14/22 19:53 169/72 01/14/22 17:00 89 20 112/59 98 01/14/22 16:00 87 20 131/65 99 01/14/22 15:00 85 20 102/62 100 01/14/22 14:00 91 22 129/68 98 01/14/22 13:00 87 22 121/62 96 01/14/22 12:23 30 H Intake and Output 01/14/22 01/15/22 01/15/22 22:59 06:59 14:59 Intake Total 551.841 245.974 Output Total 1225 Balance -673.159 245.974 Intake: Intake, IV Titration 71.841 127.974 Amount Heparin Sod,Pork in 0.45% 71.841 127.974 NaCl 25,000 unit In 0.45 % NaCl 1 250ml.bag @ 5. 512 UNITS/KG/HR 10.001 mls/hr IV .Q24H CESAR Rx#: [id number] Oral 480 118 Output: Urine 1225 Other: # Bowel Movements 1 Weight 181.437 kg No acute distress, oriented 3. No respiratory distress, or audible wheezing. No use of accessory muscles. The patient's currently on 8 L nasal cannula. HEENT examination is grossly unremarkable. Neck supple. Full range of motion. No adenopathy thyromegaly or neck vein distention. Cardiovascular examination reveals regular rhythm rate. S1-S2 normal. No S3 or S4. No discernible murmur noted. Heart sounds are distant. Heart rate 90 bpm. Lungs reveal bilateral crackles and scattered rhonchi. No wheezes. Breath sounds equal bilaterally. Abdomen soft bowel sounds are heard. No masses or tenderness. Extremities reveal no cyanosis or clubbing. The patient has significant lower extremity edema, probably 2+, with pitting. Skin is without rash or lesion. Neurologic examination is brief but nonfocal. Results - Laboratory Findings CBC and BMP: 01/15/22 07:45 01/15/22 08:05 PT/INR, D-dimer PT 12.4 sec (9.0-12.0) H 01/14/22 23:47 INR 1.2 (<1.2) H 01/14/22 23:47 D-Dimer 6.67 mg/L FEU (<0.60) H 01/14/22 12:24 Abnormal lab findings: Abnormal Labs 01/14/22 01/14/22 01/14/22 12:24 12:24 12:24 RBC 3.21 L Hgb 11.0 L Hct 33.9 L MCV 105.6 H RDW 16.1 H Lymphocytes # 0.9 L Macrocytosis PT 12.6 H INR 1.2 H APTT D-Dimer BUN Glucose POC Glucose (mg/dL) Plasma Lactic Acid Vikas 2.5 H* Alkaline Phosphatase Troponin I Albumin 01/14/22 01/14/22 01/14/22 12:24 12:55 12:55 RBC Hgb Hct MCV RDW Lymphocytes # Macrocytosis PT INR APTT D-Dimer 6.67 H BUN 24 H Glucose 194 H POC Glucose (mg/dL) Plasma Lactic Acid Vikas Alkaline Phosphatase 206 H Troponin I 0.108 H* Albumin 3.1 L 01/14/22 01/14/22 01/15/22 19:56 23:47 06:16 RBC Hgb Hct MCV RDW Lymphocytes # Macrocytosis PT 12.4 H INR 1.2 H APTT 33.4 H D-Dimer BUN Glucose POC Glucose (mg/dL) 209 H 418 H Plasma Lactic Acid Vikas Alkaline Phosphatase Troponin I Albumin 01/15/22 01/15/22 01/15/22 07:45 07:45 08:05 RBC 3.08 L Hgb 10.8 L Hct 33.4 L MCV 108.7 H RDW 15.9 H Lymphocytes # 0.6 L Macrocytosis Marked A PT INR APTT 40.5 H D-Dimer BUN 26 H Glucose 404 H POC Glucose (mg/dL) Plasma Lactic Acid Vikas Alkaline Phosphatase Troponin I Albumin 01/15/22 08:05 RBC Hgb Hct MCV RDW Lymphocytes # Macrocytosis PT INR APTT D-Dimer BUN Glucose POC Glucose (mg/dL) Plasma Lactic Acid Vikas Alkaline Phosphatase Troponin I 0.059 H* Albumin - Diagnostic Findings Chest x-ray: image reviewed CT scan - chest: image reviewed Assessment and Plan Assessment: Shortness of breath, likely multifactorial, in part related to postinflammatory pulmonary fibrosis secondary to previous coronavirus infection, and some mild fluid overload/CHF. History of CAD, status post bypass grafting, 2014. History of obstructive sleep apnea syndrome, currently not using CPAP. History of atrial fibrillation. History of diabetes mellitus. History of hyperlipidemia. History of hypertension. History of chronic kidney disease. Morbid obesity. Prior history of methicillin-resistant staph aureus infection. Prior history of tobacco use. Plan: Plan dated 01/15/2022. The patient shortness of breath, is likely multifactorial, in part related to po stinflammatory pulmonary fibrosis from his prior episode of coronavirus pneumonia, and also some mild fluid overload/CHF. The patient should get corticosteroids, at higher doses, prednisone, at 30-40 mg a day. Decadron can be discontinued. Additional recommendations and suggestions are forthcoming. Continue to follow make recommendations where appropriate. The patient recently saw my partner in the office. He did recommend higher doses of corticosteroids at that time. In addition he did recommend additional diuretics. Time with Patient: Greater than 30
--- NOTE | 2022-01-15 12:13 | P.CRDCN ---
History of Present Illness History of present illness: HISTORY OF PRESENTING ILLNESS This is a pleasant 66-year-old male past medical history significant for chronic kidney disease, type 2 diabetes, hypertension, hyperlipidemia, paroxysmal atrial fibrillation on Eliquis, coronary artery disease with prior bypass surgery in 2014. Recent admission in 11/2021 for Covid-19 Pneumonia. He follows in the office with Dr. Eddy. We have been asked to see in consultation for elevated troponin. Patient presents to the emergency department with worsening shortness of breath since his discharge from the hospital November 2021. Patient states that after week from being discharged she had worsening shortness of breath with any activity, he states he noticed that his oxygen saturations decrease when he would walk. He was discharged with home Oxygen and he was increasing his oxygen to 5L at home due to hypoxia. He denies any symptoms of orthopnea or PND. He does occasionally get a burning across his upper chest, however this is not new. It is nonradiating, nonexertional. This chest burning is relieved by taking Tums/antacids. He also endorses lower extremity edema, which is not new, but was slightly increased prior to admission. He states it has been improved since Lasix was given. On admission patient was hypoxic with oxygen saturations in the 70s on room air DIAGNOSTICS -EKG reveals sinus rhythm, heart rate 87, T wave inversion in lead V2, LVH, no acute ST or T-wave abnormalities. -Telemetry tracings indicate sinus mechanism -Most recent stress test 05/2019 in the office [place] was negative -Echo revealed an EF 5560 %, no significant wall motion abnormalities -Labs, troponin 0.10, 0.05, sodium 137, potassium 4.7, BUN 26, serum creatinine 1.0, WBC 7.7, hemoglobin 10.8, platelets 335 -Chest CT revealed no evidence of pulmonary embolism, coarse infiltrates lung massey compatible with covid pneumonia, -Current home medications include Eliquis 5 mg twice a day, aspirin 81 mg daily, atorvastatin 40 mg nightly, Lasix 40 mg twice a day, metoprolol titrate 25 mg twice a day REVIEW OF SYSTEMS At the time of my exam: CONSTITUTIONAL: Denies fever or chills. CARDIOVASCULAR: Denies chest pain, +shortness of breath, Denies orthopnea, PND or palpitations. RESPIRATORY: Denies cough. GASTROINTESTINAL: Denies abdominal pain, diarrhea, constipation, nausea or vomiting. MUSCULOSKELETAL: Denies myalgias. NEUROLOGIC: Denies numbness, tingling, headache or weakness. ENDOCRINE: Denies fatigue, weight change, polydipsia or polyurina. GENITOURINARY: Denies burning, hematuria or urgency with micturation. HEMATOLOGIC: Denies history of anemia or bleeding. PHYSICAL EXAMINATION Blood pressure 138/76, heart rate 89, afebrile, saturations 96% on 8L high flow nasal cannula CONSTITUTIONAL: No apparent distress. HEENT: Head is normocephalic. Pupils are equal, round. Sclerae anicteric. Mucous membranes of the mouth are moist. No JVD. No carotid bruit. CHEST EXAMINATION: Lungs are diminished in the bases to auscultation. No chest wall tenderness is noted on palpation or with deep breathing. HEART EXAMINATION: Regular rate and rhythm. S1, S2 heard. No murmurs, gallops or rub. ABDOMEN: Soft, nontender. Positive bowel sounds. EXTREMITIES: 2+ peripheral pulses, 2+ bilateral lower extremity edema and no calf tenderness. SKIN: warm, dry NEUROLOGIC EXAMINATION: Patient is awake, alert and oriented x3. ASSESSMENT Shortness of breath Recent covid-19 Pneumonia Elevated troponin, likely related to type II event due to hypoxia GERD Chronic kidney disease Type 2 diabetes Hypertension Hperlipidemia Paroxysmal atrial fibrillation on Eliquis Coronary artery disease with prior bypass surgery in 2014 PLAN Patient's chest burning, likely GI related due to relief with Tums/antacids. Echo revealed an EF 5560 %, no significant wall motion abnormalities. Second troponin 0.05. Elevated troponin unlikely acute coronary syndrome. Likely related to supply and demand mismatch due to patient's hypoxia. He does not appear to be in acute heart failure at this time. Continue Eliquis, statin, aspirin, Lasix 40 mg twice a day, metoprolol tartrate 25 mg twice a day Follow up with Dr. Eddy outpatient Thank you kindly for this consultation. Nurse practitioner note has been reviewed by physician. Signing provider agrees with the documented findings, assessment, and plan of care. Past Medical History Past Medical History: Atrial Fibrillation, Coronary Artery Disease (CAD), Diabetes Mellitus, Hyperlipidemia, Hypertension, Renal Disease Additional Past Medical History / Comment(s): 1 kidney (congenital), MIGUEL not using a CPAP for now, Obesity, DM type 2, CABG 2014 History of Any Multi-Drug Resistant Organisms: MRSA Date of last positivie culture/infection: 2013 MDRO Source:: Right foot Past Surgical History: Coronary Bypass/CABG, Tonsillectomy Additional Past Surgical History / Comment(s): Cataract Bilat, Ganglian cyst removed from left arm, 2015 (Triple) Past Anesthesia/Blood Transfusion Reactions: No Reported Reaction Past Psychological History: Anxiety Smoking Status: Former smoker Past Alcohol Use History: Occasional Past Drug Use History: None Reported - Past Family History Mother Family Medical History: Congestive Heart Failure (CHF), Diabetes Mellitus Father Family Medical History: Congestive Heart Failure (CHF), COPD, Diabetes Mellitus, Hyperlipidemia, Hypertension, Myocardial Infarction (IA) Medications and Allergies Home Medications Medication Instructions Recorded Confirmed Type Apixaban [Eliquis] 5 mg PO BID 05/04/19 01/14/22 History Metoprolol Tartrate [Lopressor] 25 mg PO BID 05/04/19 01/14/22 History busPIRone HCl [Buspar] 20 mg PO BID 05/04/19 01/14/22 History Ferrous Sulfate [Feosol] 325 mg PO DAILY 07/11/20 01/14/22 History Aspirin EC [Ecotrin Low Dose] 81 mg PO DAILY 12/10/21 01/14/22 History Atorvastatin [Lipitor] 40 mg PO HS 12/10/21 01/14/22 History Dextran 70/Hypromellose [Genteal 1 drop BOTH EYES QID 12/10/21 01/14/22 History Tears 0.1%-0.3% Drop] EPINEPHrine (Auto Inject) [Epipen] 0.3 mg IM ONCE PRN 12/10/21 01/14/22 History Gabapentin [Neurontin] 400 mg PO TID 12/10/21 01/14/22 History Insulin Aspart [NovoLOG Flexpen] 43 units SQ AC-BID@1200,1700 12/10/21 01/14/22 History Insulin Aspart [NovoLOG Flexpen] 53 units SQ AC-BRKFST 12/10/21 01/14/22 History Insulin Aspart [NovoLOG Flexpen] See Protocol SQ AC-TID 12/10/21 01/14/22 History Insulin Glargine,Hum.rec.anlog 73 unit SQ BID 12/10/21 01/14/22 History [Lantus Solostar Pen] Ketoconazole 2% Cream [Nizoral 2%] 1 applic TOPICAL BID 12/10/21 01/14/22 History Ketoconazole [Ketoconazole 2% 1 applic TOPICAL DAILY 12/10/21 01/14/22 History Shampoo] Latanoprost [Xalatan 0.005%] 1 drop BOTH EYES BID 12/10/21 01/14/22 History Lifitegrast [Xiidra] 1 drop BOTH EYES BID 12/10/21 01/14/22 History Miconazole Nitrate [Lotrimin AF 1 applic TOPICAL BID 12/10/21 01/14/22 History Powder] Trolamine Salicylate [Myoflex] 1 applic TOPICAL DIRECTED 12/10/21 01/14/22 History Acetaminophen Tab [Tylenol] 650 mg PO Q6HR PRN tab 12/15/21 01/14/22 Rx Albuterol Inhaler [Ventolin Hfa 2 puff INHALATION RT-QID 30 Days 12/15/21 01/14/22 Rx Inhaler] #1 gm Ascorbic Acid [Vitamin C] 1,000 mg PO DAILY 30 Days #60 tab 12/15/21 01/14/22 Rx Cholecalciferol [Vitamin D3 (125 125 mcg PO DAILY 30 Days #30 tablet 12/15/21 01/14/22 Rx Mcg = 5000 Iu)] Dexamethasone 6 mg PO DAILY 5 Days #5 tablet 12/15/21 01/14/22 Rx Furosemide [Lasix] 40 mg PO BID 30 Days #60 tablet 12/15/21 01/14/22 Rx Sodium Bicarbonate Tab 650 mg PO BID 30 Days #60 tab 12/15/21 01/14/22 Rx Zinc Sulfate [Orazinc] 220 mg PO DAILY 14 Days #14 cap 12/15/21 01/14/22 Rx Ergocalciferol [Vitamin D2 (1250 1,250 mcg PO Q30D 01/14/22 01/14/22 History Mcg = 53724 Iu)] Allergies Allergy/AdvReac Type Severity Reaction Status Date / Time allopurinol Allergy Rash/Hives Verified 01/14/22 14:35 bee venom protein (honey bee) Allergy Anaphylaxis Verified 01/14/22 14:35 watermelon Allergy Anaphylaxis Verified 01/14/22 14:35 doxycycline AdvReac Diarrhea Verified 01/14/22 14:35 sildenafil AdvReac headache Verified 01/14/22 14:35 Physical Exam Vitals: Vital Signs Temp Pulse Pulse Resp BP BP Pulse Ox 01/15/22 04:34 95 01/15/22 04:00 97.3 F L 81 22 133/60 95 01/15/22 00:00 97.6 F 71 22 122/58 95 01/14/22 20:00 98.2 F 101 H 22 169/72 95 01/14/22 19:53 169/72 01/14/22 17:00 89 20 112/59 98 01/14/22 16:00 87 20 131/65 99 01/14/22 15:00 85 20 102/62 100 01/14/22 14:00 91 22 129/68 98 01/14/22 13:00 87 22 121/62 96 01/14/22 12:23 30 H 01/14/22 11:34 95 01/14/22 11:29 98.4 F 87 25 H 125/61 77 L Intake and Output 01/14/22 01/15/22 01/15/22 22:59 06:59 14:59 Intake Total 551.841 Output Total 1225 Balance -673.159 Intake: Intake, IV Titration 71.841 Amount Heparin Sod,Pork in 0.45% 71.841 NaCl 25,000 unit In 0.45 % NaCl 1 250ml.bag @ 5. 512 UNITS/KG/HR 10.001 mls/hr IV .Q24H [facility] Rx#: [id number] Oral 480 Output: Urine 1225 Other: # Bowel Movements 1 Weight 181.437 kg Results 01/15/22 07:45 01/15/22 08:05 Cardiac Enzymes 01/14/22 01/14/22 Range/Units 12:55 12:55 AST 50 (17-59) U/L Troponin I 0.108 H* (0.000-0.034) ng/mL Coagulation 01/14/22 01/14/22 Range/Units 12:24 23:47 PT 12.6 H 12.4 H (9.0-12.0) sec APTT 22.1 33.4 H (22.0-30.0) sec CBC 01/14/22 Range/Units 12:24 WBC 7.3 (3.8-10.6) k/uL RBC 3.21 L (4.30-5.90) m/uL Hgb 11.0 L (13.0-17.5) gm/dL Hct 33.9 L (39.0-53.0) % Plt Count 383 D (150-450) k/uL Comprehensive Metabolic Panel 01/14/22 Range/Units 12:55 Sodium 137 (137-145) mmol/L Potassium 3.9 (3.5-5.1) mmol/L Chloride 100 (98-107) mmol/L Carbon Dioxide 30 (22-30) mmol/L BUN 24 H (9-20) mg/dL Creatinine 1.12 (0.66-1.25) mg/dL Glucose 194 H (74-99) mg/dL Calcium 8.4 (8.4-10.2) mg/dL AST 50 (17-59) U/L ALT 27 (4-49) U/L Alkaline Phosphatase 206 H (38-126) U/L Total Protein 6.4 (6.3-8.2) g/dL Albumin 3.1 L (3.5-5.0) g/dL Current Medications Generic Name Dose Route Start Last Admin Trade Name Freq PRN Reason Stop Dose Admin Acetaminophen 650 mg 01/14/22 17:26 Acetaminophen Tab 325 Mg Tab PO Q6HR PRN Mild Pain or Fever > 100.5 Albuterol Sulfate 2.5 mg 01/15/22 08:00 Albuterol Nebulized 2.5 Mg/3 Ml INHALATION RT-QID [facility] Artificial Tears 1 drops 01/14/22 22:00 01/14/22 21:18 Artificial Tears-Hypromellose Drops 15 Ml Btl BOTH EYES 1 drops QID [facility] Administration Ascorbic Acid 1,000 mg 01/15/22 09:00 Ascorbic Acid 500 Mg Tab PO DAILY [facility] Aspirin 81 mg 01/15/22 09:00 Aspirin 81 Mg PO DAILY [facility] Atorvastatin Calcium 40 mg 01/14/22 21:00 01/14/22 21:17 Atorvastatin 40 Mg Tab PO 40 mg HS [facility] Administration Buspirone HCl 20 mg 01/14/22 21:00 01/14/22 21:17 Buspirone Hcl 10 Mg Tab PO 20 mg BID [facility] Administration Cholecalciferol 125 mcg 01/15/22 09:00 Cholecalciferol 125 Mcg (5000 Iu) Tablet PO DAILY [facility] Dexamethasone 6 mg 01/15/22 09:00 Dexamethasone 2 Mg Tab PO DAILY [facility] Famotidine 40 mg 01/15/22 09:00 Famotidine 20 Mg Tab PO DAILY [facility] Ferrous Sulfate 325 mg 01/15/22 09:00 Ferrous Sulfate 325 Mg Tab PO DAILY [facility] Furosemide 40 mg 01/14/22 21:00 01/14/22 21:19 Furosemide 40 Mg Tab PO Not Given BID@0900,1600 [facility] Gabapentin 400 mg 01/14/22 22:00 01/14/22 21:17 Gabapentin 400 Mg Cap PO 400 mg TID [facility] Administration Heparin Sodium (Porcine) 0 unit 01/14/22 17:20 01/15/22 01:31 Heparin Sodium 1,000 Un/Ml (10ml Vl) IV 4,000 unit PER PROTOCOL PRN Administration Low PTT Protocol Heparin Sodium/Sodium Chloride 250 mls @ 10.001 mls/hr 01/14/22 17:30 01/15/22 01:31 25,000 unit/ Sodium Chloride IV 8 units/kg/hr .Q24H [facility] 14.515 mls/hr Titration Protocol 5.512 UNITS/KG/HR Sodium Chloride 1,000 mls @ 20 mls/hr 01/14/22 17:30 01/14/22 18:33 Saline 0.9% IV 20 mls/hr .Q24H [facility] Administration Insulin Aspart 43 unit 01/15/22 12:00 Insulin Aspart (Novolog) 100 Unit/Ml Vial SQ AC-BID@1200,1700 [facility] Insulin Aspart 53 unit 01/15/22 07:30 01/15/22 06:39 Insulin Aspart (Novolog) 100 Unit/Ml Vial SQ 53 unit AC-BRKFST [facility] Administration Insulin Aspart 0 unit 01/14/22 21:00 01/14/22 21:19 Insulin Aspart (Novolog) 100 Unit/Ml Vial SQ 6 unit ACHS [facility] Administration Protocol Insulin Detemir 73 unit 01/14/22 21:30 01/15/22 06:40 Insulin Detemir (Levemir) 100 Unit/Ml Syr SQ 73 unit BID@0700,2100 [facility] Administration Metoprolol Tartrate 25 mg 01/14/22 21:00 01/14/22 21:17 Metoprolol Tartrate 25 Mg Tab PO 25 mg BID [facility] Administration Naloxone HCl 0.2 mg 01/14/22 17:26 Naloxone 0.4 Mg/Ml 1 Ml Vial IV Q2M PRN Opioid Reversal Ondansetron HCl 4 mg 01/14/22 17:26 Ondansetron 4 Mg/2 Ml Vial IVP Q8HR PRN Nausea And Vomiting Pantoprazole Sodium 40 mg 01/15/22 07:30 01/15/22 06:40 Pantoprazole 40 Mg Tablet PO 40 mg AC-BRKFST [facility] Administration Zinc Sulfate 220 mg 01/15/22 09:00 Zinc Sulfate 220 Mg Cap PO DAILY [facility] Intake and Output 01/14/22 01/15/22 01/15/22 22:59 06:59 14:59 Intake Total 551.841 Output Total 1225 Balance -673.159 Intake: Intake, IV Titration 71.841 Amount Heparin Sod,Pork in 0.45% 71.841 NaCl 25,000 unit In 0.45 % NaCl 1 250ml.bag @ 5. 512 UNITS/KG/HR 10.001 mls/hr IV .Q24H [facility] Rx#: [id number] Oral 480 Output: Urine 1225 Other: # Bowel Movements 1 Weight 181.437 kg 01/14/22 12:24 01/14/22 12:55
[2022-01-15 12:16] LABS: Glucose,Whole Blood 407 mg/dL (75-99)
[2022-01-15 12:18] LABS: Glucose,Whole Blood 383 mg/dL (75-99)
[2022-01-15 15:42] LABS: Estimated Average Glucose UNC
[2022-01-15 16:09] LABS: Glucose,Whole Blood 370 mg/dL (75-99)
[2022-01-15] MEDS: SODIUM CHLORIDE 0.9% 1,000 ML IV SCH (17:31)
[2022-01-15] MEDS: ATORVASTATIN 40 MG TAB PO SCH (20:47)
[2022-01-15 20:52] LABS: Glucose,Whole Blood 374 mg/dL (75-99)
[2022-01-16] MEDS: PANTOPRAZOLE 40 MG TABLET PO SCH ×2 (06:31→06:32)
[2022-01-16 07:07] LABS: Glucose,Whole Blood 238 mg/dL (75-99)
[2022-01-16] MEDS: INSULIN DETEMIR (LEVEMIR) 100 UNIT/ML SYR SQ SCH ×2 (08:10→20:43)
[2022-01-16] MEDS: INSULIN ASPART (NovoLOG) 100 UNIT/ML VIAL SQ SCH ×7 (08:10→20:43)
[2022-01-16] MEDS: APIXABAN 5 MG TAB PO SCH ×2 (08:11→20:43)
[2022-01-16] MEDS: ASCORBIC ACID 500 MG TAB PO SCH (08:11)
[2022-01-16] MEDS: predniSONE 10 MG TAB PO SCH (08:11)
[2022-01-16] MEDS: FUROSEMIDE 40 MG TAB PO SCH ×2 (08:11→16:46)
[2022-01-16] MEDS: GABAPENTIN 400 MG CAP PO SCH ×3 (08:12→20:43)
[2022-01-16] MEDS: FERROUS SULFATE 325 MG TAB PO SCH (08:12)
[2022-01-16] MEDS: METOPROLOL TARTRATE 25 MG TAB PO SCH ×2 (08:12→20:43)
[2022-01-16] MEDS: CHOLECALCIFEROL 125 MCG (5000 IU) TABLET PO SCH (08:12)
[2022-01-16] MEDS: busPIRone HCl 10 MG TAB PO SCH ×2 (08:12→20:43)
[2022-01-16] MEDS: ZINC SULFATE 220 MG CAP PO SCH (08:12)
[2022-01-16] MEDS: ARTIFICIAL TEARS-HYPROMELLOSE DROPS 15 ML BTL BOTH EYES SCH ×4 (08:13→23:11)
[2022-01-16] MEDS: FAMOTIDINE 20 MG TAB PO SCH (08:13)
[2022-01-16] MEDS: ASPIRIN 81 MG PO SCH (08:13)
[2022-01-16] MEDS: ALBUTEROL NEBULIZED 2.5 MG/3 ML INHALATION SCH ×4 (08:33→19:28)
--- NOTE | 2022-01-16 10:36 | P.PN ---
Subjective This is a pleasant 66 years old male with past medical history of Atrial Fibrillation on Eliquis , Coronary Artery Disease , Diabetes Mellitus, Hype rlipidemia, Hypertension, Renal Disease with 1 kidney (congenital), MIGUEL not using a CPAP for now, Obesitystatus post , CABG 2014 Presents because of dyspnea for a few weeks progressively getting worse. Also he has recent diagnosis of cough to 3 weeks ago, patient is on home oxygenThe last 2 days was not working.Oxygen saturation at, 70% Patient states that he was diagnosed with Covid pneumonia about 3 weeks ago where he was discharged from Hospital and he was doing well on 4 L oxygen via nasal cannula however over the last 2 days he was noticed that his oxygen saturation is going down and he went to see his doctor while he is at Dr. office he passed out as per the so she called 911 for him and brought him to the hospital. He doesn't have chest pain, he has some cough and a few clear phlegm. He has little looser stool but no overt diarrhea, no vomiting, no abdominal pain, is eating well. No dysuria or urgency. In the splenic but no weakness or numbness or blurred vision. He denies smoking, alcohol or illicit drugs. On admission patient was hypoxic 77% on room air, Seroquel 50-50 L per minute of oxygen via high flow nasal cannula. Also he is tachypneic. INR is 1.2 BMP showing creatinine is normal at 1.1. Troponin is slightly elevated at 0.1. Glucose around 200 Coronavirus: Not detected, during this admission however it was tested positive for on 12/10/2021 or 3 weeks ago WBCs 7.3, hemoglobin 11.0. ProBNP is 1300. Troponin is elevated at 0.108 Chest x-ray showed cardiomegaly with scattered infiltrates seen throughout both lung massey findings could reflect pneumonia or underlying congestive heart failure CTA of the chest: No evidence of pulmonary embolism. Coarse infiltrates throughout both lung massey compatible with COVID-19 pneumonia EKG showing normal sinus rhythm at [address]-T changes Echocardiogram done last month showing ejection fraction 55-60%, on 12/10/2021 Patient received 1 dose of IV Lasix, dexamethasone, heparin drip and aspirin 324 mg Patient is on oral Lasix 40 mg twice daily which is a home dose 01/16/2022 Patient states that his breathing easier today however he got really short of breath when went to commode and his oxygen requirement went up from 8 up to 15 L/m however after he settled down its back again to 8 L/m. His glucose is better controlled at 238 after increase his Levemir dose 73 up to ET units twice a day. He remains on home dose of Eliquis 5 mg, prednisone 30 mg Objective - Vital Signs Vital signs: Vital Signs Temp 98.1 F 01/16/22 08:00 Pulse 82 01/16/22 08:50 Resp 22 01/16/22 08:00 BP 143/70 01/16/22 08:00 Pulse Ox 90 L 01/16/22 08:00 Intake & Output 01/15/22 01/16/22 01/16/22 18:59 06:59 18:59 Intake Total 785.974 0 Balance 785.974 0 Intake: Intake, IV Titration 127.974 Amount Heparin Sod,Pork in 0.45% 127.974 NaCl 25,000 unit In 0.45 % NaCl 1 250ml.bag @ 5. 512 UNITS/KG/HR 10.001 mls/hr IV .Q24H [facility] Rx#: [id number] Oral 658 0 - Exam -GENERAL: The patient is alert and oriented x3, not in any acute distress. Well morbidly obese HEENT: Pupils are round and equally reacting to light. EOMI. No scleral icterus. No conjunctival pallor. Normocephalic, atraumatic. No pharyngeal erythema. No thyromegaly. CARDIOVASCULAR: S1 and S2 present. No murmurs, rubs, or gallops. PULMONARY: Chest is clear to auscultation, no wheezing or crackles. Decreased breath sounds because of body habitus ABDOMEN: Soft, nontender, nondistended, normoactive bowel sounds. No palpable organomegaly. MUSCULOSKELETAL: No joint swelling or deformity. EXTREMITIES: No cyanosis, clubbing, or pedal edema. NEUROLOGICAL: Gross neurological examination did not reveal any focal deficits. SKIN: No rashes. no petechiae. - Labs CBC & Chem 7: 01/15/22 07:45 01/15/22 08:05 Labs: Abnormal Lab Results - Last 24 Hours (Table) 01/15/22 01/15/22 01/15/22 Range/Units 08:05 08:05 11:40 BUN 26 H (9-20) mg/dL Glucose 404 H (74-99) mg/dL POC Glucose (mg/dL) 407 H (75-99) mg/dL Procalcitonin 0.16 H (0.02-0.09) ng/mL 01/15/22 01/15/22 01/15/22 Range/Units 12:16 16:03 20:36 BUN (9-20) mg/dL Glucose (74-99) mg/dL POC Glucose (mg/dL) 383 H 370 H 374 H (75-99) mg/dL Procalcitonin (0.02-0.09) ng/mL 01/16/22 Range/Units 07:05 BUN (9-20) mg/dL Glucose (74-99) mg/dL POC Glucose (mg/dL) 238 H (75-99) mg/dL Procalcitonin (0.02-0.09) ng/mL Assessment and Plan Assessment: Most likely Bilateral Covid pneumonia Acute on chronic hypoxic respiratory failure Increased inflammatory markers Pulmonary fibrosis Elevated troponin with mild ST depression, most likely demand supply mismatch per delivery rep Diabetes mellitus Hypertension Hyperlipidemia Chronic atrial fibrillation on Eliquis History of coronary artery disease status post CABG Congenital or kidney History of obstructive sleep apnea not on CPAP Plan: This is a pleasant 66 years old female with covid pneumonia, and elevated troponin with some mild ST depression in view of history of CABG Continue with prednisone Continue with vitamin C, vitamin D and zinc Continue with insulin and monitor glucose Patient is on oral Lasix Patient currently on Eliquis Also on aspirin Cardiology and pulmonary consult Labs and medication were reviewed.. Continue same treatment. Continue with symptomatic treatment. Resume home medication. Monitor lytes and vitals. DVT and GI prophylaxis. Further recommendations depends on the clinical course of the patient DVT prophylaxis: heparin drip GI Prophylaxis: Pepcid PT/OT: Pending Prognosis is guarded
[2022-01-16 12:03] LABS: Glucose,Whole Blood 226 mg/dL (75-99)
--- NOTE | 2022-01-16 16:42 | CDI ---
Type II MT due to hypoxia Documentation Clarification Form Date: 01/16/2022 04:09:32 PM From: Naty Lagos RN, CCDS Admit Date: 01/14/2022 05:27:00 PM Patient Name: Neftaly Cope Visit Number: [id number] Discharge Date: ATTENTION: The Clinical Documentation Specialists (CDI) and [facility] Coding Staff appreciate your assistance in clarifying documentation. Please respond to the clarification below the line at the bottom and electronically sign. The CDI & [facility] Coding staff will review the response and follow-up if needed. Please note: Queries are made part of the Legal Health Record. If you have any questions, please contact the author of this message via ITS. Dr. Hunter Aguilar There is documentation of elevated troponin, likely related to type II event due to hypoxia in cardiology consult on 01/14. Additional clarification is requested. History/Risk Factors: Covid Pneumonia, Atrial Fibrillation, Coronary Artery Disease, Diabetes Mellitus, Hypertension Clinical Indicators: 66-year-old male present with dyspnea, oxygen saturation in the 70s on room air. Cardiology consult indicate elevated troponion unlikely related to acute coronary syndrome. Likely related to supply and demand mismatch due to patient's hypoxia 01/14 vital signs: 125/61 87 25 98.4 77 % RA, 121/62 87 22 96 % on 13% High Flow EKG reveals sinus rhythm, heart rate 87, T wave inversion in lead V2, LVH, no acute ST or T-wave abnormalities. Echo revealed an EF 55-60 %, No significant wall motion abnormalities. 01/14 Labs, troponin 0.10, 0.05, 01/[address] revealed no evidence of pulmonary embolism, coarse infiltrates lung massey compatible with Covid pneumonia. Treatment: Telemetry Monitoring Monitor O2 Sat's (titrate) Heparin Drip 01/14-01/15 DC Lasix 40MG IV Once 01/14 then 40 MG PO BID 01/14-01/16 Decadron 10 MG IV Once 216 then 6 MG PO Daily 01/15 Prednisone 30MG PO Daily 01/16 Lopressor 25MG PO BID 01/14 Can you please further clarify type II event due to hypoxia? [ ] Type II MT due to hypoxia [ ] Demand ischemia with out MT (other form of ischemic heart disease) [ ] Other, please specify [ ] Unable to determine (Template Last Revised: January 2021) MTDD
--- NOTE | 2022-01-16 16:42 | P.PN ---
Subjective Progress Note Date: 01/16/22 Principal diagnosis: Shortness of breath, lower extremity edema. Pulmonary consult dated 01/15/2022. 66-year-old male brought into the emergency room, by EMS, yesterday, with com plaints of shortness of breath. The patient apparently was inpatient in November for coronavirus associated pneumonia. He apparently was also seen by my partner in our office, on Wednesday. Over the last couple weeks, the patient states that he become more and more short of breath. In addition, he is noted more and more significant edema of his lower extremities. He denied any fever or chills. T here is no cough. No chest pain or chest discomfort. No palpitations. Apparently when he saw my partner in the office, it was recommended that the patient get some additional diuretic, and also some corticosteroids. He apparently sees a nurse practitioner at the [facility] in [place] as a primary. Also sees one of the handling tech, and one of the tripe finisher as well. He has a history of atrial fibrillation, CAD, diabetes, hyperlipidemia, hypertension, and chronic kidney disease. The patient is status post bypass grafting in 2014. He does use home O2 at 4 L/m. Currently, he's on 8 L nasal cannula. Is getting saline at 20 mL an hour, and IV heparin via weightbased protocol. White count 7.7, h emoglobin 10.8, hematocrit 33.4, and platelet count 330,000. PTT is 40.5. Sodium, potassium, chloride, CO2, anion gap, are all normal. BUN is 26 with a creatinine of 1.08. Troponin is 0.059. N-terminal proBNP is 1300. Testing for tomlinson- virus was negative. Chest x-ray reveals cardiomegaly, scattered bilateral infiltrates. CT angiogram was negative for central pulmonary embolism, and lung massey showed diffuse infiltrates, consistent with postinflammatory pulmonary fibrosis. Progress note dated 01/16/2022. The patient is again seen in room 362. He was initially seen in the emergency department, brought in by EMS, with complaints of shortness of breath. The patient was recently inpatient at this institution in November for coronavirus associated pneumonia. More recently, he was in my office on Wednesday, and saw my partner who recommended additional diuretics, and prednisone for presumed postinflammatory pulmonary fibrosis. Currently, the patient appears to be doing a bit better. The patient's on 7 L nasal cannula. He's not receiving any IV fluids. The patient's getting Lasix 40 mg twice a day. We placed him on prednisone 30 mg a day. No new labs today. X-rays, and CAT scans were evaluated yesterday. His pro-calcitonin level is only 0.16. Objective - Vital Signs Vital signs: Vital Signs Temp 98.1 F 01/16/22 08:00 Pulse 80 01/16/22 16:26 Resp 16 01/16/22 12:15 BP 137/63 01/16/22 12:15 Pulse Ox 99 01/16/22 12:15 Intake & Output 01/15/22 01/16/22 01/16/22 18:59 06:59 18:59 Intake Total 785.974 180 Balance 785.974 180 Intake: Intake, IV Titration 127.974 Amount Heparin Sod,Pork in 0.45% 127.974 NaCl 25,000 unit In 0.45 % NaCl 1 250ml.bag @ 5. 512 UNITS/KG/HR 10.001 mls/hr IV .Q24H [facility] Rx#: [id number] Oral 658 180 - Exam No acute distress, oriented 3. No respiratory distress, or audible wheezing. No use of accessory muscles. The patient's currently on 7 L nasal cannula. HEENT examination is grossly unremarkable. Neck supple. Full range of motion. No adenopathy thyromegaly or neck vein distention. Cardiovascular examination reveals regular rhythm rate. S1-S2 normal. No S3 or S4. No discernible murmur noted. Heart sounds are distant. Heart rate 80 bpm. Lungs reveal bilateral crackles and scattered rhonchi. No wheezes. Breath sounds equal bilaterally. Abdomen soft bowel sounds are heard. No masses or tenderness. Extremities reveal no cyanosis or clubbing. The patient has significant lower extremity edema, probably 2+, with pitting. Skin is without rash or lesion. Neurologic examination is brief but nonfocal. 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 History of CAD, status post bypass grafting, 2014. History of obstructive sleep apnea syndrome, currently not using CPAP. History of atrial fibrillation. History of diabetes mellitus. History of hyperlipidemia. History of hypertension. History of chronic kidney disease. Morbid obesity. Prior history of methicillin-resistant staph aureus infection. Prior history of tobacco use. Plan: Plan dated 01/15/2022. The patient shortness of breath, is likely multifactorial, in part related to postinflammatory pulmonary fibrosis from his prior episode of coronavirus pneumonia, and also some mild fluid overload/CHF. The patient should get corticosteroids, at higher doses, prednisone, at 30-40 mg a day. Decadron can be discontinued. Additional recommendations and suggestions are forthcoming. Continue to follow make recommendations where appropriate. The patient recently saw my partner in the office. He did recommend higher doses of corticosteroids at that time. In addition he did recommend additional diuretics. Plan dated 01/16/2022. The patient is feeling better today. The patient is still on O2 at 7 L. Yesterday, it was higher. The patient is treated for postinflammatory pulmonary fibrosis. In addition, the patient has a component of fluid overload. The patient is currently on prednisone 30 mg a day. Decadron is discontinued. In addition, the patient is getting Lasix, 40 mg twice a day. We will continue to follow make recommendations where appropriate. Labs, x-rays, and medications are all reviewed. Prognosis is guarded. Time with Patient: Less than 30
[2022-01-16] MEDS: guaiFENesin-DM 100-10MG/5ML 10 ML CUP PO SCH (16:46)
[2022-01-16 16:58] LABS: Glucose,Whole Blood 255 mg/dL (75-99)
[2022-01-16] MEDS: SODIUM CHLORIDE 0.9% 1,000 ML IV SCH (18:46)
[2022-01-16 19:54] LABS: Glucose,Whole Blood 290 mg/dL (75-99)
[2022-01-16] MEDS: ATORVASTATIN 40 MG TAB PO SCH (20:43)
[2022-01-17] MEDS: guaiFENesin-DM 100-10MG/5ML 10 ML CUP PO SCH ×3 (01:36→16:57)
[2022-01-17 07:09] LABS: Glucose,Whole Blood 201 mg/dL (75-99)
[2022-01-17] MEDS: ALBUTEROL NEBULIZED 2.5 MG/3 ML INHALATION SCH ×4 (07:57→20:11)
[2022-01-17] MEDS: INSULIN ASPART (NovoLOG) 100 UNIT/ML VIAL SQ SCH ×7 (08:13→20:54)
[2022-01-17] MEDS: FAMOTIDINE 20 MG TAB PO SCH (08:14)
[2022-01-17] MEDS: ASCORBIC ACID 500 MG TAB PO SCH (08:14)
[2022-01-17] MEDS: APIXABAN 5 MG TAB PO SCH ×2 (08:14→20:53)
[2022-01-17] MEDS: INSULIN DETEMIR (LEVEMIR) 100 UNIT/ML SYR SQ SCH ×2 (08:14→20:55)
[2022-01-17] MEDS: METOPROLOL TARTRATE 25 MG TAB PO SCH ×2 (08:14→20:54)
[2022-01-17] MEDS: predniSONE 10 MG TAB PO SCH (08:14)
[2022-01-17] MEDS: CHOLECALCIFEROL 125 MCG (5000 IU) TABLET PO SCH (08:15)
[2022-01-17] MEDS: ZINC SULFATE 220 MG CAP PO SCH (08:15)
[2022-01-17] MEDS: FUROSEMIDE 40 MG TAB PO SCH ×2 (08:15→16:53)
[2022-01-17] MEDS: FERROUS SULFATE 325 MG TAB PO SCH (08:15)
[2022-01-17] MEDS: GABAPENTIN 400 MG CAP PO SCH ×3 (08:15→20:54)
[2022-01-17] MEDS: busPIRone HCl 10 MG TAB PO SCH ×2 (08:15→20:53)
[2022-01-17] MEDS: ASPIRIN 81 MG PO SCH (08:15)
[2022-01-17] MEDS: ARTIFICIAL TEARS-HYPROMELLOSE DROPS 15 ML BTL BOTH EYES SCH ×2 (08:16→12:22)
--- NOTE | 2022-01-17 10:15 | P.PN ---
Subjective This is a pleasant 66 years old male with past medical history of Atrial Fibrillation on Eliquis , Coronary Artery Disease , Diabetes Mellitus, Hype rlipidemia, Hypertension, Renal Disease with 1 kidney (congenital), MIGUEL not using a CPAP for now, Obesitystatus post , CABG 2014 Presents because of dyspnea for a few weeks progressively getting worse. Also he has recent diagnosis of cough to 3 weeks ago, patient is on home oxygenThe last 2 days was not working.Oxygen saturation at, 70% Patient states that he was diagnosed with Covid pneumonia about 3 weeks ago where he was discharged from Hospital and he was doing well on 4 L oxygen via nasal cannula however over the last 2 days he was noticed that his oxygen saturation is going down and he went to see his doctor while he is at Dr. office he passed out as per the so she called 911 for him and brought him to the hospital. He doesn't have chest pain, he has some cough and a few clear phlegm. He has little looser stool but no overt diarrhea, no vomiting, no abdominal pain, is eating well. No dysuria or urgency. In the splenic but no weakness or numbness or blurred vision. He denies smoking, alcohol or illicit drugs. On admission patient was hypoxic 77% on room air, Seroquel 50-50 L per minute of oxygen via high flow nasal cannula. Also he is tachypneic. INR is 1.2 BMP showing creatinine is normal at 1.1. Troponin is slightly elevated at 0.1. Glucose around 200 Coronavirus: Not detected, during this admission however it was tested positive for on 12/10/2021 or 3 weeks ago WBCs 7.3, hemoglobin 11.0. ProBNP is 1300. Troponin is elevated at 0.108 Chest x-ray showed cardiomegaly with scattered infiltrates seen throughout both lung massey findings could reflect pneumonia or underlying congestive heart failure CTA of the chest: No evidence of pulmonary embolism. Coarse infiltrates throughout both lung massey compatible with COVID-19 pneumonia EKG showing normal sinus rhythm at [address]-T changes Echocardiogram done last month showing ejection fraction 55-60%, on 12/10/2021 Patient received 1 dose of IV Lasix, dexamethasone, heparin drip and aspirin 324 mg Patient is on oral Lasix 40 mg twice daily which is a home dose 01/16/2022 Patient states that his breathing easier today however he got really short of breath when went to commode and his oxygen requirement went up from 8 up to 15 L/m however after he settled down its back again to 8 L/m. His glucose is better controlled at 238 after increase his Levemir dose 73 up to ET units twice a day. He remains on home dose of Eliquis 5 mg, prednisone 30 mg 01/17/2022 Patient still reports slow progressive improvement in his shortness of breath and his coughing is better although he still have quite of cough. No other new complaint. Distal on each liter per minute of oxygen via nasal cannula. Glucose is better controlled today ejection fraction 55-60% He remains on prednisone 30 mg, Eliquis 5 mg, multiple vitamin as well as oral Lasix. Objective - Vital Signs Vital signs: Vital Signs Temp 97.8 F 01/17/22 04:00 Pulse 80 01/17/22 08:09 Resp 19 01/17/22 08:00 BP 137/62 01/17/22 08:00 Pulse Ox 93 L 01/17/22 08:00 Intake & Output 01/16/22 01/17/22 01/17/22 18:59 06:59 18:59 Intake Total 360 240 Output Total 2075 Balance 360 -207 240 Intake: Oral 360 240 Output: Urine 2074 Other: # Bowel Movements 1 - Exam -GENERAL: The patient is alert and oriented x3, not in any acute distress. Well morbidly obese HEENT: Pupils are round and equally reacting to light. EOMI. No scleral icterus. No conjunctival pallor. Normocephalic, atraumatic. No pharyngeal erythema. No thyromegaly. CARDIOVASCULAR: S1 and S2 present. No murmurs, rubs, or gallops. PULMONARY: Chest is clear to auscultation, no wheezing or crackles. Decreased breath sounds because of body habitus ABDOMEN: Soft, nontender, nondistended, normoactive bowel sounds. No palpable organomegaly. MUSCULOSKELETAL: No joint swelling or deformity. EXTREMITIES: No cyanosis, clubbing, or pedal edema. NEUROLOGICAL: Gross neurological examination did not reveal any focal deficits. SKIN: No rashes. no petechiae. - Labs CBC & Chem 7: 01/15/22 07:45 01/15/22 08:05 Labs: Abnormal Lab Results - Last 24 Hours (Table) 0201/16/22 01/16/22 Range/Units 12:01 16:55 19:52 POC Glucose (mg/dL) 226 H 255 H 290 H (75-99) mg/dL 01/17/22 Range/Units 07:07 POC Glucose (mg/dL) 201 H (75-99) mg/dL Assessment and Plan Assessment: Most likely Bilateral Covid pneumonia Acute on chronic hypoxic respiratory failure Increased inflammatory markers Pulmonary fibrosis Elevated troponin with mild ST depression, most likely demand supply mismatch per scraper hand Diabetes mellitus Hypertension Hyperlipidemia Chronic atrial fibrillation on Eliquis History of coronary artery disease status post CABG Congenital or kidney History of obstructive sleep apnea not on CPAP Plan: This is a pleasant 66 years old female with covid pneumonia, and elevated troponin with some mild ST depression in view of history of CABG Continue with prednisone Continue with vitamin C, vitamin D and zinc Continue with insulin and monitor glucose Patient is on oral Lasix Patient currently on Eliquis Also on aspirin Cardiology and pulmonary consult Labs and medication were reviewed.. Continue same treatment. Continue with symptomatic treatment. Resume home medication. Monitor lytes and vitals. DVT and GI prophylaxis. Further recommendations depends on the clinical course of the patient DVT prophylaxis: heparin drip GI Prophylaxis: Pepcid PT/OT: Pending Prognosis is guarded
[2022-01-17 12:01] LABS: Glucose,Whole Blood 211 mg/dL (75-99)
--- NOTE | 2022-01-17 15:15 | P.PN ---
Subjective Progress Note Date: 01/17/22 Principal diagnosis: Shortness of breath, lower extremity edema. Pulmonary consult dated 01/15/2022. 66-year-old male brought into the emergency room, by EMS, yesterday, with com plaints of shortness of breath. The patient apparently was inpatient in November for coronavirus associated pneumonia. He apparently was also seen by my partner in our office, on Wednesday. Over the last couple weeks, the patient states that he become more and more short of breath. In addition, he is noted more and more significant edema of his lower extremities. He denied any fever or chills. T here is no cough. No chest pain or chest discomfort. No palpitations. Apparently when he saw my partner in the office, it was recommended that the patient get some additional diuretic, and also some corticosteroids. He apparently sees a nurse practitioner at the [facility] in [place] as a primary. Also sees one of the stitch welder, and one of the dry wall installer as well. He has a history of atrial fibrillation, CAD, diabetes, hyperlipidemia, hypertension, and chronic kidney disease. The patient is status post bypass grafting in 2014. He does use home O2 at 4 L/m. Currently, he's on 8 L nasal cannula. Is getting saline at 20 mL an hour, and IV heparin via weightbased protocol. White count 7.7, h emoglobin 10.8, hematocrit 33.4, and platelet count 330,000. PTT is 40.5. Sodium, potassium, chloride, CO2, anion gap, are all normal. BUN is 26 with a creatinine of 1.08. Troponin is 0.059. N-terminal proBNP is 1300. Testing for tomlinson- virus was negative. Chest x-ray reveals cardiomegaly, scattered bilateral infiltrates. CT angiogram was negative for central pulmonary embolism, and lung massey showed diffuse infiltrates, consistent with postinflammatory pulmonary fibrosis. Progress note dated 01/16/2022. The patient is again seen in room 362. He was initially seen in the emergency department, brought in by EMS, with complaints of shortness of breath. The patient was recently inpatient at this institution in November for coronavirus associated pneumonia. More recently, he was in my office on Wednesday, and saw my partner who recommended additional diuretics, and prednisone for presumed postinflammatory pulmonary fibrosis. Currently, the patient appears to be doing a bit better. The patient's on 7 L nasal cannula. He's not receiving any IV fluids. The patient's getting Lasix 40 mg twice a day. We placed him on prednisone 30 mg a day. No new labs today. X-rays, and CAT scans were evaluated yesterday. His pro-calcitonin level is only 0.16. Progress note dated 01/17/2022. 66-year-old male, again seen in room 362. He came to the emergency department, because of shortness of breath. The patient had a recent episode of coronavirus associated pneumonia in November of this year. He was recently seen by my partner in the office, for increasing shortness of breath, thought to be in part related to postinflammatory pulmonary fibrosis. I partner advocated for co rticosteroids, and additional diuretics. Currently on 7 L high flow oxygen. Saturations are 90%. The patient feels like his breathing better, and that his lower extremity edema is also improved. Chest x-ray reveals no new laboratory data to review. Objective - Vital Signs Vital signs: Vital Signs Temp 97.8 F 01/17/22 04:00 Pulse 79 01/17/22 12:20 Resp 20 01/17/22 12:20 BP 128/68 01/17/22 12:20 Pulse Ox 91 L 01/17/22 12:20 Intake & Output 01/16/22 01/17/22 01/17/22 18:59 06:59 18:59 Intake Total 360 480 Output Total 2075 1125 Balance 360 -2075 -645 Intake: Oral 360 480 Output: Urine 2075 1125 Other: Voiding Method Urinal # Bowel Movements 1 - Exam No acute distress, oriented 3. No respiratory distress, or audible wheezing. No use of accessory muscles. The patient's currently on 7 L nasal cannula. HEENT examination is grossly unremarkable. Neck supple. Full range of motion. No adenopathy thyromegaly or neck vein distention. Cardiovascular examination reveals regular rhythm rate. S1-S2 normal. No S3 or S4. No discernible murmur noted. Heart sounds are distant. Heart rate 72 bpm. Lungs reveal bilateral crackles and scattered rhonchi. No wheezes. Breath sounds equal bilaterally. Saturations are 91%, on 7 L nasal cannula. Abdomen soft bowel sounds are heard. No masses or tenderness. Extremities reveal no cyanosis or clubbing. The patient has significant lower e xtremity edema, probably 2+, with pitting. Skin is without rash or lesion. Neurologic examination is brief but nonfocal. - Labs CBC & Chem 7: 01/15/22 07:45 01/15/22 08:05 Labs: Abnormal Lab Results - Last 24 Hours (Table) 01/16/22 01/16/22 01/17/22 Range/Units 16:55 19:52 07:07 POC Glucose (mg/dL) 255 H 290 H 201 H (75-99) mg/dL 01/17/22 Range/Units 11:37 POC Glucose (mg/dL) 211 H (75-99) mg/dL Assessment and Plan Assessment: Shortness of breath, likely multifactorial, in part related to postinflammatory pulmonary fibrosis secondary to previous coronavirus infection, and some mild fluid overload/CHF. History of CAD, status post bypass grafting, 2014. History of obstructive sleep apnea syndrome, currently not using CPAP. History of atrial fibrillation. History of diabetes mellitus. History of hyperlipidemia. History of hypertension. History of chronic kidney disease. Morbid obesity. Prior history of methicillin-resistant staph aureus infection. Prior history of tobacco use. Plan: Plan dated 01/15/2022. The patient shortness of breath, is likely multifactorial, in part related to postinflammatory pulmonary fibrosis from his prior episode of coronavirus pneumonia, and also some mild fluid overload/CHF. The patient should get corticosteroids, at higher doses, prednisone, at 30-40 mg a day. Decadron can be discontinued. Additional recommendations and suggestions are forthcoming. Continue to follow make recommendations where appropriate. The patient recently saw my partner in the office. He did recommend higher doses of corticosteroids at that time. In addition he did recommend additional diuretics. Plan dated 01/16/2022. The patient is feeling better today. The patient is still on O2 at 7 L. Yesterday, it was higher. The patient is treated for postinflammatory pulmonary fibrosis. In addition, the patient has a component of fluid overload. The patient is currently on prednisone 30 mg a day. Decadron is discontinued. In addition, the patient is getting Lasix, 40 mg twice a day. We will continue to follow make recommendations where appropriate. Labs, x-rays, and medications are all reviewed. Prognosis is guarded. Plan dated 01/17/2022. The patient does feel improved. He feels like his breathing is improved, and that his lower extremity edema is better. Remains on oxygen at 7 L. The patient is being treated for postinflammatory pulmonary fibrosis, secondary to his recent episode of coronavirus associated pneumonia. He is on prednisone 30 mg a day. In addition, he seemed Lasix 40 mg twice a day. Additional recommendations and suggestions are forthcoming. We will continue to follow make recommendations where appropriate. Prognosis is certainly guarded. Time with Patient: Less than 30
[2022-01-17 16:36] LABS: Glucose,Whole Blood 178 mg/dL (75-99)
[2022-01-17] MEDS: SODIUM CHLORIDE 0.9% 1,000 ML IV SCH (16:57)
[2022-01-17 20:22] LABS: Glucose,Whole Blood 214 mg/dL (75-99)
[2022-01-17] MEDS: ATORVASTATIN 40 MG TAB PO SCH (20:54)
[2022-01-18] MEDS: ARTIFICIAL TEARS-HYPROMELLOSE DROPS 15 ML BTL BOTH EYES SCH ×5 (01:49→20:30)
[2022-01-18] MEDS: guaiFENesin-DM 100-10MG/5ML 10 ML CUP PO SCH ×3 (01:50→17:34)
[2022-01-18] MEDS: ALBUTEROL NEBULIZED 2.5 MG/3 ML INHALATION SCH ×4 (07:25→19:44)
--- NOTE | 2022-01-18 07:53 | XR ---
EXAMINATION TYPE: XR chest 1V portable DATE OF EXAM: 01/18/2022 Comparison: 01/14/2022 Clinical History: 66-year-old male CHF Findings: Median sternotomy wires are present with postoperative clips in the mediastinum. Heart remains modera tely enlarged. Diffuse interstitial opacities persist, slightly less confluent in the periphery of th e lungs. No sizable effusion on the frontal view. Impression: Continued moderate cardiomegaly and diffuse interstitial pulmonary edema though with suggestion of sl ight improvement from prior exam.
[2022-01-18] MEDS: INSULIN ASPART (NovoLOG) 100 UNIT/ML VIAL SQ SCH ×7 (08:40→20:29)
[2022-01-18] MEDS: INSULIN DETEMIR (LEVEMIR) 100 UNIT/ML SYR SQ SCH ×2 (08:41→20:29)
[2022-01-18] MEDS: FAMOTIDINE 20 MG TAB PO SCH (08:42)
[2022-01-18] MEDS: predniSONE 10 MG TAB PO SCH (08:42)
[2022-01-18] MEDS: GABAPENTIN 400 MG CAP PO SCH ×3 (08:42→20:29)
[2022-01-18] MEDS: CHOLECALCIFEROL 125 MCG (5000 IU) TABLET PO SCH (08:42)
[2022-01-18] MEDS: FERROUS SULFATE 325 MG TAB PO SCH (08:42)
[2022-01-18] MEDS: METOPROLOL TARTRATE 25 MG TAB PO SCH ×2 (08:42→20:29)
[2022-01-18] MEDS: APIXABAN 5 MG TAB PO SCH ×2 (08:42→20:29)
[2022-01-18] MEDS: busPIRone HCl 10 MG TAB PO SCH ×2 (08:42→20:29)
[2022-01-18] MEDS: ASPIRIN 81 MG PO SCH (08:42)
[2022-01-18] MEDS: ASCORBIC ACID 500 MG TAB PO SCH (08:42)
[2022-01-18] MEDS: FUROSEMIDE 40 MG TAB PO SCH ×2 (08:42→17:33)
[2022-01-18] MEDS: ZINC SULFATE 220 MG CAP PO SCH (08:43)
[2022-01-18 10:15] LABS: Glucose,Whole Blood 72 mg/dL (75-99)
[2022-01-18 10:41] LABS: Glucose,Whole Blood 62 mg/dL (75-99)
[2022-01-18 10:56] LABS: Glucose,Whole Blood 88 mg/dL (75-99)
--- NOTE | 2022-01-18 10:59 | P.PN ---
Subjective This is a pleasant 66 years old male with past medical history of Atrial Fibrillation on Eliquis , Coronary Artery Disease , Diabetes Mellitus, Hype rlipidemia, Hypertension, Renal Disease with 1 kidney (congenital), MIGUEL not using a CPAP for now, Obesitystatus post , CABG 2014 Presents because of dyspnea for a few weeks progressively getting worse. Also he has recent diagnosis of cough to 3 weeks ago, patient is on home oxygenThe last 2 days was not working.Oxygen saturation at, 70% Patient states that he was diagnosed with Covid pneumonia about 3 weeks ago where he was discharged from Hospital and he was doing well on 4 L oxygen via nasal cannula however over the last 2 days he was noticed that his oxygen saturation is going down and he went to see his doctor while he is at Dr. office he passed out as per the so she called 911 for him and brought him to the hospital. He doesn't have chest pain, he has some cough and a few clear phlegm. He has little looser stool but no overt diarrhea, no vomiting, no abdominal pain, is eating well. No dysuria or urgency. In the splenic but no weakness or numbness or blurred vision. He denies smoking, alcohol or illicit drugs. On admission patient was hypoxic 77% on room air, Seroquel 50-50 L per minute of oxygen via high flow nasal cannula. Also he is tachypneic. INR is 1.2 BMP showing creatinine is normal at 1.1. Troponin is slightly elevated at 0.1. Glucose around 200 Coronavirus: Not detected, during this admission however it was tested positive for on 12/10/2021 or 3 weeks ago WBCs 7.3, hemoglobin 11.0. ProBNP is 1300. Troponin is elevated at 0.108 Chest x-ray showed cardiomegaly with scattered infiltrates seen throughout both lung massey findings could reflect pneumonia or underlying congestive heart failure CTA of the chest: No evidence of pulmonary embolism. Coarse infiltrates throughout both lung massey compatible with COVID-19 pneumonia EKG showing normal sinus rhythm at [address]-T changes Echocardiogram done last month showing ejection fraction 55-60%, on 12/10/2021 Patient received 1 dose of IV Lasix, dexamethasone, heparin drip and aspirin 324 mg Patient is on oral Lasix 40 mg twice daily which is a home dose 01/16/2022 Patient states that his breathing easier today however he got really short of breath when went to commode and his oxygen requirement went up from 8 up to 15 L/m however after he settled down its back again to 8 L/m. His glucose is better controlled at 238 after increase his Levemir dose 73 up to ET units twice a day. He remains on home dose of Eliquis 5 mg, prednisone 30 mg 01/17/2022 Patient still reports slow progressive improvement in his shortness of breath and his coughing is better although he still have quite of cough. No other new complaint. Distal on each liter per minute of oxygen via nasal cannula. Glucose is better controlled today ejection fraction 55-60% He remains on prednisone 30 mg, Eliquis 5 mg, multiple vitamin as well as oral Lasix. 11/17/2022 Patient breathing easier as he states however he still on 8 L of oxygen per minute. His coughing is feeling better today after starting Robitussin His glucose was low this morning so we lowered his Levemir 8 units down to 77 units twice a day. Patient continued on Eliquis 5 mg, prednisone and multiple vitamins. Chest x-ray showing diffuse interstitial edema slightly improved. I talked to him about possible rehab versus home health care, and he wants to talk to social work case manager Objective - Vital Signs Vital signs: Vital Signs Temp 97.7 F 01/18/22 04:00 Pulse 77 01/18/22 08:34 Resp 18 01/18/22 08:34 BP 148/69 01/18/22 08:34 Pulse Ox 99 01/18/22 08:34 Intake & Output 01/17/22 01/18/22 01/18/22 18:59 06:59 18:59 Intake Total 720 450 Output Total 2921 986 8674 Balance -1005 -450 -1050 Intake: Oral 720 450 Output: Urine 2031 773 9101 Other: Voiding Method Urinal Urinal # Voids 2 - Exam -GENERAL: The patient is alert and oriented x3, not in any acute distress. Well morbidly obese HEENT: Pupils are round and equally reacting to light. EOMI. No scleral icterus. No conjunctival pallor. Normocephalic, atraumatic. No pharyngeal erythema. No thyromegaly. CARDIOVASCULAR: S1 and S2 present. No murmurs, rubs, or gallops. PULMONARY: Chest is clear to auscultation, no wheezing or crackles. Decreased breath sounds because of body habitus ABDOMEN: Soft, nontender, nondistended, normoactive bowel sounds. No palpable organomegaly. MUSCULOSKELETAL: No joint swelling or deformity. EXTREMITIES: No cyanosis, clubbing, or pedal edema. NEUROLOGICAL: Gross neurological examination did not reveal any focal deficits. SKIN: No rashes. no petechiae. - Labs CBC & Chem 7: 01/15/22 07:45 01/15/22 08:05 Labs: Abnormal Lab Results - Last 24 Hours (Table) 01/17/22 01/17/22 01/17/22 Range/Units 11:37 16:34 19:36 POC Glucose (mg/dL) 211 H 178 H 214 H (75-99) mg/dL 01/18/22 Range/Units 10:12 POC Glucose (mg/dL) 72 L (75-99) mg/dL Assessment and Plan Assessment: Most likely Bilateral Covid pneumonia Acute on chronic hypoxic respiratory failure Increased inflammatory markers Pulmonary fibrosis Elevated troponin with mild ST depression, most likely demand supply mismatch per [employer] Diabetes mellitus Hypertension Hyperlipidemia Chronic atrial fibrillation on Eliquis History of coronary artery disease status post CABG Congenital or kidney History of obstructive sleep apnea not on CPAP Plan: This is a pleasant 66 years old female with covid pneumonia, and elevated troponin with some mild ST depression in view of history of CABG Continue with prednisone Continue with vitamin C, vitamin D and zinc Continue with insulin and monitor glucose Patient is on oral Lasix Patient currently on Eliquis Also on aspirin Cardiology and pulmonary consult Labs and medication were reviewed.. Continue same treatment. Continue with symptomatic treatment. Resume home medication. Monitor lytes and vitals. DVT and GI prophylaxis. Further recommendations depends on the clinical course of the patient DVT prophylaxis: heparin drip GI Prophylaxis: Pepcid PT/OT: Pending Prognosis is guarded
[2022-01-18] MEDS ORDERED: DEXTROSE 50% SYRINGE 50 ML IVP ONE (11:06)
[2022-01-18 11:31] LABS: Glucose,Whole Blood 143 mg/dL (75-99)
--- NOTE | 2022-01-18 15:23 | P.PN ---
Subjective Progress Note Date: 01/18/22 Principal diagnosis: Shortness of breath, lower extremity edema. Pulmonary consult dated 01/15/2022. 66-year-old male brought into the emergency room, by EMS, yesterday, with com plaints of shortness of breath. The patient apparently was inpatient in November for coronavirus associated pneumonia. He apparently was also seen by my partner in our office, on Wednesday. Over the last couple weeks, the patient states that he become more and more short of breath. In addition, he is noted more and more significant edema of his lower extremities. He denied any fever or chills. T here is no cough. No chest pain or chest discomfort. No palpitations. Apparently when he saw my partner in the office, it was recommended that the patient get some additional diuretic, and also some corticosteroids. He apparently sees a nurse practitioner at the [facility] in [place] as a primary. Also sees one of the surface room shop optician, and one of the drift miner as well. He has a history of atrial fibrillation, CAD, diabetes, hyperlipidemia, hypertension, and chronic kidney disease. The patient is status post bypass grafting in 2014. He does use home O2 at 4 L/m. Currently, he's on 8 L nasal cannula. Is getting saline at 20 mL an hour, and IV heparin via weightbased protocol. White count 7.7, h emoglobin 10.8, hematocrit 33.4, and platelet count 330,000. PTT is 40.5. Sodium, potassium, chloride, CO2, anion gap, are all normal. BUN is 26 with a creatinine of 1.08. Troponin is 0.059. N-terminal proBNP is 1300. Testing for tomlinson- virus was negative. Chest x-ray reveals cardiomegaly, scattered bilateral infiltrates. CT angiogram was negative for central pulmonary embolism, and lung massey showed diffuse infiltrates, consistent with postinflammatory pulmonary fibrosis. Progress note dated 01/16/2022. The patient is again seen in room 362. He was initially seen in the emergency department, brought in by EMS, with complaints of shortness of breath. The patient was recently inpatient at this institution in November for coronavirus associated pneumonia. More recently, he was in my office on Wednesday, and saw my partner who recommended additional diuretics, and prednisone for presumed postinflammatory pulmonary fibrosis. Currently, the patient appears to be doing a bit better. The patient's on 7 L nasal cannula. He's not receiving any IV fluids. The patient's getting Lasix 40 mg twice a day. We placed him on prednisone 30 mg a day. No new labs today. X-rays, and CAT scans were evaluated yesterday. His pro-calcitonin level is only 0.16. Progress note dated 01/17/2022. 66-year-old male, again seen in room 362. He came to the emergency department, because of shortness of breath. The patient had a recent episode of coronavirus associated pneumonia in November of this year. He was recently seen by my partner in the office, for increasing shortness of breath, thought to be in part related to postinflammatory pulmonary fibrosis. I partner advocated for co rticosteroids, and additional diuretics. Currently on 7 L high flow oxygen. Saturations are 90%. The patient feels like his breathing better, and that his lower extremity edema is also improved. Chest x-ray reveals no new laboratory data to review. Progress note dated 01/18/2022. 66-year-old male, again seen in room 362. He initially presented to the emergency department with complaints of shortness of breath. He had a recent episode of coronavirus associated pneumonia, and November 2021. He was recently seen by my partner in the office, for increasing shortness of breath, and was thought to have postinflammatory pulmonary fibrosis. My partner recommended higher doses of corticosteroids, and additional Lasix for his lower extremity edema. Currently, the patient is on 6 L nasal cannula. He's not receiving any IV fluids. He is feeling better. His lower extremity edema is improved. No new labs today other than a glucose of 143. Chest x-ray shows cardiomegaly, and diffuse interstitial changes, which may represent edema and/or scarring. Objective - Vital Signs Vital signs: Vital Signs Temp 97.7 F 01/18/22 04:00 Pulse 84 01/18/22 11:54 Resp 18 01/18/22 11:30 BP 126/60 01/18/22 11:30 Pulse Ox 92 L 01/18/22 11:30 Intake & Output 01/17/22 01/18/22 01/18/22 18:59 06:59 18:59 Intake Total 720 450 Output Total 4056 863 9753 Balance -1005 -450 -1050 Intake: Oral 720 450 Output: Urine 9768 204 0787 Other: Voiding Method Urinal Urinal Urinal # Voids 2 - Exam No acute distress, oriented 3. No respiratory distress, or audible wheezing. No use of accessory muscles. The patient's currently on 6 L nasal cannula. Saturations are 92%. HEENT examination is grossly unremarkable. Neck supple. Full range of motion. No adenopathy thyromegaly or neck vein distention. Cardiovascular examination reveals regular rhythm rate. S1-S2 normal. No S3 or S4. No discernible murmur noted. Heart sounds are distant. Heart rate 84 bpm. Lungs reveal bilateral crackles and scattered rhonchi. No wheezes. Breath sounds equal bilaterally. Saturations are 92% on 6 L nasal cannula. Abdomen soft bowel sounds are heard. No masses or tenderness. Extremities reveal no cyanosis or clubbing. The patient has significant lower extremity edema, probably 2+, with pitting. Skin is without rash or lesion. Neurologic examination is brief but nonfocal. - Labs CBC & Chem 7: 01/15/22 07:45 01/15/22 08:05 Labs: Abnormal Lab Results - Last 24 Hours (Table) 01/17/22 01/17/22 01/18/22 Range/Units 16:34 19:36 10:12 POC Glucose (mg/dL) 178 H 214 H 72 L (75-99) mg/dL 01/18/22 01/18/22 Range/Units 10:39 11:28 POC Glucose (mg/dL) 62 L 143 H (75-99) mg/dL Assessment and Plan Assessment: Shortness of breath, likely multifactorial, in part related to postinflammatory pulmonary fibrosis secondary to previous coronavirus infection, and some mild fluid overload/CHF. History of CAD, status post bypass grafting, 2015. History of obstructive sleep apnea syndrome, currently not using CPAP. History of atrial fibrillation. History of diabetes mellitus. History of hyperlipidemia. History of hypertension. History of chronic kidney disease. Morbid obesity. Prior history of methicillin-resistant staph aureus infection. Prior history of tobacco use. Plan: Plan dated 01/15/2022. The patient shortness of breath, is likely multifactorial, in part related to postinflammatory pulmonary fibrosis from his prior episode of coronavirus pneumonia, and also some mild fluid overload/CHF. The patient should get corticosteroids, at higher doses, prednisone, at 30-40 mg a day. Decadron can be discontinued. Additional recommendations and suggestions are forthcoming. Continue to follow make recommendations where appropriate. The patient recently saw my partner in the office. He did recommend higher doses of corticosteroids at that time. In addition he did recommend additional diuretics. Plan dated 01/16/2022. The patient is feeling better today. The patient is still on O2 at 7 L. Yesterday, it was higher. The patient is treated for postinflammatory pulmonary fibrosis. In addition, the patient has a component of fluid overload. The patient is currently on prednisone 30 mg a day. Decadron is discontinued. In addition, the patient is getting Lasix, 40 mg twice a day. We will continue to follow make recommendations where appropriate. Labs, x-rays, and medications are all reviewed. Prognosis is guarded. Plan dated 01/17/2022. The patient does feel improved. He feels like his breathing is improved, and that his lower extremity edema is better. Remains on oxygen at 7 L. The patient is being treated for postinflammatory pulmonary fibrosis, secondary to his recent episode of coronavirus associated pneumonia. He is on prednisone 30 mg a day. In addition, he seemed Lasix 40 mg twice a day. Additional recommendations and suggestions are forthcoming. We will continue to follow make recommendations where appropriate. Prognosis is certainly guarded. Plan dated 01/18/2022. The patient does feel improved. His lower extremity edema is better. The patient continues on appropriate medications, and is currently using prednisone 30 mg a day. In addition, the patient is getting Lasix twice a day. His oxygen requirements have gone down albeit slowly. We will continue to follow make recommendations where appropriate. Prognosis is guarded. I've asked the nurse to order labs for the morning. Time with Patient: Less than 30
[2022-01-18 16:49] LABS: Glucose,Whole Blood 212 mg/dL (75-99)
[2022-01-18] MEDS: SODIUM CHLORIDE 0.9% 1,000 ML IV SCH (17:34)
[2022-01-18 20:20] LABS: Glucose,Whole Blood 222 mg/dL (75-99)
[2022-01-18] MEDS: ATORVASTATIN 40 MG TAB PO SCH (20:29)
[2022-01-18] MEDS ORDERED: INSULIN DETEMIR (LEVEMIR) 100 UNIT/ML SYR SQ SCH (21:00)
[2022-01-19] MEDS: ARTIFICIAL TEARS-HYPROMELLOSE DROPS 15 ML BTL BOTH EYES SCH ×3 (00:09→16:22)
[2022-01-19 06:02] LABS: Glucose,Whole Blood 147 mg/dL (75-99)
[2022-01-19] MEDS: INSULIN ASPART (NovoLOG) 100 UNIT/ML VIAL SQ SCH ×7 (07:01→20:56)
[2022-01-19] MEDS: INSULIN DETEMIR (LEVEMIR) 100 UNIT/ML SYR SQ SCH ×2 (07:05→20:56)
[2022-01-19] MEDS: ALBUTEROL NEBULIZED 2.5 MG/3 ML INHALATION SCH ×4 (08:39→20:55)
[2022-01-19] MEDS: GABAPENTIN 400 MG CAP PO SCH ×3 (08:51→20:56)
[2022-01-19] MEDS: METOPROLOL TARTRATE 25 MG TAB PO SCH ×2 (08:51→20:55)
[2022-01-19] MEDS: FAMOTIDINE 20 MG TAB PO SCH (08:51)
[2022-01-19] MEDS: ASPIRIN 81 MG PO SCH (08:51)
[2022-01-19] MEDS: CHOLECALCIFEROL 125 MCG (5000 IU) TABLET PO SCH (08:52)
[2022-01-19] MEDS: APIXABAN 5 MG TAB PO SCH ×2 (08:52→20:55)
[2022-01-19] MEDS: ASCORBIC ACID 500 MG TAB PO SCH (08:52)
[2022-01-19] MEDS: busPIRone HCl 10 MG TAB PO SCH ×2 (08:52→20:55)
[2022-01-19] MEDS: FUROSEMIDE 40 MG TAB PO SCH ×2 (08:52→16:21)
[2022-01-19] MEDS: ZINC SULFATE 220 MG CAP PO SCH (08:52)
[2022-01-19] MEDS: FERROUS SULFATE 325 MG TAB PO SCH (08:53)
[2022-01-19] MEDS: predniSONE 10 MG TAB PO SCH (08:53)
--- NOTE | 2022-01-19 10:37 | P.PN ---
Subjective This is a pleasant 66 years old male with past medical history of Atrial Fibrillation on Eliquis , Coronary Artery Disease , Diabetes Mellitus, Hype rlipidemia, Hypertension, Renal Disease with 1 kidney (congenital), MIGUEL not using a CPAP for now, Obesitystatus post , CABG 2014 Presents because of dyspnea for a few weeks progressively getting worse. Also he has recent diagnosis of cough to 3 weeks ago, patient is on home oxygenThe last 2 days was not working.Oxygen saturation at, 70% Patient states that he was diagnosed with Covid pneumonia about 3 weeks ago where he was discharged from Hospital and he was doing well on 4 L oxygen via nasal cannula however over the last 2 days he was noticed that his oxygen saturation is going down and he went to see his doctor while he is at Dr. office he passed out as per the so she called 911 for him and brought him to the hospital. He doesn't have chest pain, he has some cough and a few clear phlegm. He has little looser stool but no overt diarrhea, no vomiting, no abdominal pain, is eating well. No dysuria or urgency. In the splenic but no weakness or numbness or blurred vision. He denies smoking, alcohol or illicit drugs. On admission patient was hypoxic 77% on room air, Seroquel 50-50 L per minute of oxygen via high flow nasal cannula. Also he is tachypneic. INR is 1.2 BMP showing creatinine is normal at 1.1. Troponin is slightly elevated at 0.1. Glucose around 200 Coronavirus: Not detected, during this admission however it was tested positive for on 12/10/2021 or 3 weeks ago WBCs 7.3, hemoglobin 11.0. ProBNP is 1300. Troponin is elevated at 0.108 Chest x-ray showed cardiomegaly with scattered infiltrates seen throughout both lung massey findings could reflect pneumonia or underlying congestive heart failure CTA of the chest: No evidence of pulmonary embolism. Coarse infiltrates throughout both lung massey compatible with COVID-19 pneumonia EKG showing normal sinus rhythm at [address]-T changes Echocardiogram done last month showing ejection fraction 55-60%, on 12/10/2021 Patient received 1 dose of IV Lasix, dexamethasone, heparin drip and aspirin 324 mg Patient is on oral Lasix 40 mg twice daily which is a home dose 01/16/2022 Patient states that his breathing easier today however he got really short of breath when went to commode and his oxygen requirement went up from 8 up to 15 L/m however after he settled down its back again to 8 L/m. His glucose is better controlled at 238 after increase his Levemir dose 73 up to ET units twice a day. He remains on home dose of Eliquis 5 mg, prednisone 30 mg 01/17/2022 Patient still reports slow progressive improvement in his shortness of breath and his coughing is better although he still have quite of cough. No other new complaint. Distal on each liter per minute of oxygen via nasal cannula. Glucose is better controlled today ejection fraction 55-60% He remains on prednisone 30 mg, Eliquis 5 mg, multiple vitamin as well as oral Lasix. 11/17/2022 Patient breathing easier as he states however he still on 8 L of oxygen per minute. His coughing is feeling better today after starting Robitussin His glucose was low this morning so we lowered his Levemir 8 units down to 77 units twice a day. Patient continued on Eliquis 5 mg, prednisone and multiple vitamins. Chest x-ray showing diffuse interstitial edema slightly improved. I talked to him about possible rehab versus home health care, and he wants to talk to social media strategist 01/19/2022 Patient still reports improvement in his breathing pattern, his oxygen requirement down to 6 L per minute today from 8 L/m. His cough is better with Robitussin. Pulmonary team on the case Chest x-rays pending Possible discharge in 24-48 hour once cleared by pulmonary service Objective - Vital Signs Vital signs: Vital Signs Temp 98.0 F 01/19/22 04:00 Pulse 79 01/19/22 08:50 Resp 16 01/19/22 08:00 BP 135/60 01/19/22 08:00 Pulse Ox 95 01/19/22 08:40 Intake & Output 01/18/22 01/19/22 01/19/22 18:59 06:59 18:59 Intake Total 360 Output Total 1050 2225 800 Balance -2217 -1909 -440 Intake: Oral 360 Output: Urine 1050 2225 800 Other: Voiding Method Urinal Urinal - Exam -GENERAL: The patient is alert and oriented x3, not in any acute distress. Well morbidly obese HEENT: Pupils are round and equally reacting to light. EOMI. No scleral icterus. No conjunctival pallor. Normocephalic, atraumatic. No pharyngeal erythema. No thyromegaly. CARDIOVASCULAR: S1 and S2 present. No murmurs, rubs, or gallops. PULMONARY: Chest is clear to auscultation, no wheezing or crackles. Decreased breath sounds because of body habitus ABDOMEN: Soft, nontender, nondistended, normoactive bowel sounds. No palpable organomegaly. MUSCULOSKELETAL: No joint swelling or deformity. EXTREMITIES: No cyanosis, clubbing, or pedal edema. NEUROLOGICAL: Gross neurological examination did not reveal any focal deficits. SKIN: No rashes. no petechiae. - Labs CBC & Chem 7: 01/15/22 07:45 01/15/22 08:05 Labs: Abnormal Lab Results - Last 24 Hours (Table) 01/18/22 01/18/22 01/18/22 Range/Units 10:39 11:28 16:45 POC Glucose (mg/dL) 62 L 143 H 212 H (75-99) mg/dL 01/18/22 01/19/22 Range/Units 20:19 06:00 POC Glucose (mg/dL) 222 H 147 H (75-99) mg/dL Assessment and Plan Assessment: Most likely Bilateral Covid pneumonia Acute on chronic hypoxic respiratory failure Increased inflammatory markers Pulmonary fibrosis Elevated troponin with mild ST depression, most likely demand supply mismatch per still photographer Diabetes mellitus Hypertension Hyperlipidemia Chronic atrial fibrillation on Eliquis History of coronary artery disease status post CABG Congenital or kidney History of obstructive sleep apnea not on CPAP Plan: This is a pleasant 66 years old female with covid pneumonia, and elevated troponin with some mild ST depression in view of history of CABG Continue with prednisone Continue with vitamin C, vitamin D and zinc Continue with insulin and monitor glucose Patient is on oral Lasix Patient currently on Eliquis Also on aspirin Cardiology and pulmonary consult Labs and medication were reviewed.. Continue same treatment. Continue with symptomatic treatment. Resume home medication. Monitor lytes and vitals. DVT and GI prophylaxis. Further recommendations depends on the clinical course of the patient DVT prophylaxis: heparin drip GI Prophylaxis: Pepcid PT/OT: Pending Prognosis is guarded
[2022-01-19 11:12] LABS: Glucose,Whole Blood 76 mg/dL (75-99)
--- NOTE | 2022-01-19 11:55 | XR ---
EXAMINATION TYPE: XR chest 1V portable DATE OF EXAM: 01/19/2022 COMPARISON: 01/18/2022 INDICATION: Short of breath TECHNIQUE: Single frontal view of the chest is obtained. FINDINGS: The heart size is normal. Sternotomy wires are in the midline. The pulmonary vasculature is somewhat prominent. Scattered diffuse increased lung markings are present. This is nonspecific. Consider pulmonary edema and atypical pneumonia. IMPRESSION: 1. Nonspecific increased lung markings. Correlate for pulmonary edema and atypical pneumonia.
[2022-01-19 16:14] LABS: Glucose,Whole Blood 334 mg/dL (75-99)
--- NOTE | 2022-01-19 16:20 | P.PN ---
Subjective Progress Note Date: 01/19/22 Principal diagnosis: Shortness of breath On 01/19/2022 patient seen in follow-up on selective care unit. Patient is seen sitting up in the recliner, in no acute distress, currently on 6 L of oxygen, and his pulse ox is 95%. He denies any worsening dyspnea, although she still has some exertional dyspnea and he does desaturate with exertion but recovers. He remains on Lasix, and he is maintaining negative fluid balance, he is in -3.2 L net fluid balance over last 24 hours, his lower extremity edema is improving. His vital signs have been stable, lung sounds reveal a few bibasilar rales. He is currently on prednisone 30 mg daily, his pro-calcitonin level was negative at 0.16. Patient is on Eliquis, she remains on oral Lasix 40 mg twice daily, today's chest x-ray showing prominent pulmonary vasculature, scattered diffuse increased lung markings. Cough is improved with Robitussin. Objective - Vital Signs Vital signs: Vital Signs Temp 98.0 F 01/19/22 04:00 Pulse 75 01/19/22 12:08 Resp 16 01/19/22 12:00 BP 121/62 01/19/22 12:00 Pulse Ox 95 01/19/22 12:00 Intake & Output 01/18/22 01/19/22 01/19/22 18:59 06:59 18:59 Intake Total 1250 Output Total 1050 2225 2850 Balance -1050 -2225 -1600 Intake: Oral 1250 Output: Urine 1050 2225 2850 Other: Voiding Method Urinal Urinal Urinal # Voids 3 - Exam GENERAL EXAM: Alert, very pleasant, 66-year-old white male on 4 L of oxygen with pulse ox of 95% sitting up in the recliner, comfortable in no apparent distress. HEAD: Normocephalic/atraumatic. EYES: Normal reaction of pupils, equal size. Conjunctiva pink, sclera white. NOSE: Clear with pink turbinates. THROAT: No erythema or exudates. NECK: No masses, no JVD, no thyroid enlargement, no adenopathy. CHEST: No chest wall deformity. Symmetrical expansion. LUNGS: Equal air entry with basilar rales CVS: Regular rate and rhythm, normal S1 and S2, no gallops, no murmurs, no rubs ABDOMEN: Soft, nontender. No hepatosplenomegaly, normal bowel sounds, no guarding or rigidity. EXTREMITIES: No clubbing, 1+ lower extremity edema no cyanosis, 2+ pulses and upper and lower extremities. MUSCULOSKELETAL: Muscle strength and tone normal. SPINE: No scoliosis or deformity SKIN: No rashes CENTRAL NERVOUS SYSTEM: Alert and oriented -3. No focal deficits, tone is normal in all 4 extremities. PSYCHIATRIC: Alert and oriented -3. Appropriate affect. Intact judgment and insight. - Labs CBC & Chem 7: 01/15/22 07:45 01/15/22 08:05 Labs: Abnormal Lab Results - Last 24 Hours (Table) 01/18/22 01/18/22 01/19/22 Range/Units 16:45 20:19 06:00 POC Glucose (mg/dL) 212 H 222 H 147 H (75-99) mg/dL Assessment and Plan Plan: Assessment: #1. 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 History of CAD status post bypass grafting #3. History of obstructive sleep apnea not on CPAP #4. History of A. fib #5. History of diabetes mellitus #6. Hypertension #7. Hyperlipidemia #8. History of chronic kidney disease unspecified #9. History of morbid obesity with BMI of 50 kg/m #10. Prior history of MRSA infection #11. Prior history of tobacco use Plan: Continue diuretics and steroids continue weaning FiO2 to keep O2 sats at or above 90% today's chest x-ray has been reviewed showing diffuse increased lung markings Patient is maintaining negative net fluid balance overall fluid volume status is improving he could be considered for discharge home in the next day or 2 Patient already has oxygen set up at home He has already been transitioned to IV Lasix, and oral prednisone Outpatient follow-up with Dr. Rodriguez in the office in one week I performed a history & physical examination of the patient and discussed their management with my nurse practitioner, Jesi Lopez. I reviewed the nurse pr actitioner's note and agree with the documented findings and plan of care. Lung sounds are positive for bibasilar rales throughout the lung massey. The findings and the impression was discussed with the patient. I attest to the documentation by the nurse practitioner. Time with Patient: Less than 30
[2022-01-19 20:10] LABS: Glucose,Whole Blood 328 mg/dL (75-99)
[2022-01-19] MEDS: ATORVASTATIN 40 MG TAB PO SCH (20:55)
[2022-01-20 04:20] VITALS: TEMP 98.3
[2022-01-20] MEDS: SODIUM CHLORIDE 0.9% 1,000 ML IV SCH (04:21)
[2022-01-20] MEDS: ARTIFICIAL TEARS-HYPROMELLOSE DROPS 15 ML BTL BOTH EYES SCH ×2 (04:21→08:40)
[2022-01-20 06:20] LABS: Glucose,Whole Blood 113 mg/dL (75-99)
[2022-01-20] MEDS: ALBUTEROL NEBULIZED 2.5 MG/3 ML INHALATION SCH ×2 (08:18→11:49)
[2022-01-20] MEDS: INSULIN ASPART (NovoLOG) 100 UNIT/ML VIAL SQ SCH ×4 (08:26→12:40)
[2022-01-20] MEDS: ASCORBIC ACID 500 MG TAB PO SCH (08:35)
[2022-01-20] MEDS: FAMOTIDINE 20 MG TAB PO SCH (08:35)
[2022-01-20] MEDS: ASPIRIN 81 MG PO SCH (08:35)
[2022-01-20] MEDS: METOPROLOL TARTRATE 25 MG TAB PO SCH (08:35)
[2022-01-20] MEDS: ZINC SULFATE 220 MG CAP PO SCH (08:35)
[2022-01-20] MEDS: GABAPENTIN 400 MG CAP PO SCH (08:35)
[2022-01-20] MEDS: FERROUS SULFATE 325 MG TAB PO SCH (08:36)
[2022-01-20] MEDS: CHOLECALCIFEROL 125 MCG (5000 IU) TABLET PO SCH (08:36)
[2022-01-20] MEDS: busPIRone HCl 10 MG TAB PO SCH (08:36)
[2022-01-20] MEDS: INSULIN DETEMIR (LEVEMIR) 100 UNIT/ML SYR SQ SCH (08:36)
[2022-01-20] MEDS: APIXABAN 5 MG TAB PO SCH (08:36)
[2022-01-20] MEDS: predniSONE 10 MG TAB PO SCH (08:36)
[2022-01-20] MEDS: FUROSEMIDE 40 MG TAB PO SCH (08:36)
[2022-01-20 08:42] VITALS: RESP 16
--- NOTE | 2022-01-20 09:27 | P.PN ---
Subjective Progress Note Date: 01/20/22 Principal diagnosis: Shortness of breath On 01/19/2022 patient seen in follow-up on selective care unit. Patient is seen sitting up in the recliner, in no acute distress, currently on 6 L of oxygen, and his pulse ox is 95%. He denies any worsening dyspnea, although she still has some exertional dyspnea and he does desaturate with exertion but recovers. He remains on Lasix, and he is maintaining negative fluid balance, he is in -3.2 L net fluid balance over last 24 hours, his lower extremity edema is improving. His vital signs have been stable, lung sounds reveal a few bibasilar rales. He is currently on prednisone 30 mg daily, his pro-calcitonin level was negative at 0.16. Patient is on Eliquis, she remains on oral Lasix 40 mg twice daily, today's chest x-ray showing prominent pulmonary vasculature, scattered diffuse increased lung markings. Cough is improved with Robitussin. Objective - Vital Signs Vital signs: Vital Signs Temp 98.3 F 01/20/22 04:00 Pulse 82 01/20/22 08:30 Resp 16 01/20/22 08:00 BP 121/62 01/20/22 08:00 Pulse Ox 94 L 01/20/22 08:00 Intake & Output 01/19/22 01/20/22 01/20/22 18:59 06:59 18:59 Intake Total 1610 940 240 Output Total 2850 1200 Balance -1240 -260 240 Intake: Oral 1610 790 240 Blood Product 150 Output: Urine 2850 1200 Other: Voiding Method Urinal Urinal # Voids 3 - Exam GENERAL EXAM: Alert, very pleasant, 66-year-old white male on 4 L of oxygen with pulse ox of 95% sitting up in the recliner, comfortable in no apparent distress. HEAD: Normocephalic/atraumatic. EYES: Normal reaction of pupils, equal size. Conjunctiva pink, sclera white. NOSE: Clear with pink turbinates. THROAT: No erythema or exudates. NECK: No masses, no JVD, no thyroid enlargement, no adenopathy. CHEST: No chest wall deformity. Symmetrical expansion. LUNGS: Equal air entry with basilar rales CVS: Regular rate and rhythm, normal S1 and S2, no gallops, no murmurs, no rubs ABDOMEN: Soft, nontender. No hepatosplenomegaly, normal bowel sounds, no guarding or rigidity. EXTREMITIES: No clubbing, 1+ lower extremity edema no cyanosis, 2+ pulses and upper and lower extremities. MUSCULOSKELETAL: Muscle strength and tone normal. SPINE: No scoliosis or deformity SKIN: No rashes CENTRAL NERVOUS SYSTEM: Alert and oriented -3. No focal deficits, tone is normal in all 4 extremities. PSYCHIATRIC: Alert and oriented -3. Appropriate affect. Intact judgment and insight. - Labs CBC & Chem 7: 01/15/22 07:45 01/15/22 08:05 Labs: Abnormal Lab Results - Last 24 Hours (Table) 01/19/22 01/19/22 01/20/22 Range/Units 16:12 20:04 06:09 POC Glucose (mg/dL) 334 H 328 H 113 H (75-99) mg/dL Assessment and Plan Plan: Assessment: #1. 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 History of CAD status post bypass grafting #3. History of obstructive sleep apnea not on CPAP #4. History of A. fib #5. History of diabetes mellitus #6. Hypertension #7. Hyperlipidemia #8. History of chronic kidney disease unspecified #9. History of morbid obesity with BMI of 50 kg/m #10. Prior history of MRSA infection #11. Prior history of tobacco use Plan: patient is improving, breathing easier, no acute events overnight Continue diuretics and steroids Patient is maintaining negative net fluid balance overall fluid volume status is improving he could be considered for discharge home today Patient already has oxygen set up at home He has already been transitioned to IV Lasix, and oral prednisone Patient would benefit from nebulized albuterol q6h hours as needed for dyspnea and congestion Outpatient follow-up with Dr. Rodriguez in the office in one week I performed a history & physical examination of the patient and discussed their management with my nurse practitioner, Jesi Lopez. I reviewed the nurse practitioner's note and agree with the documented findings and plan of care. Lung sounds are positive for bibasilar rales throughout the lung massey. The findings and the impression was discussed with the patient. I attest to the documentation by the nurse practitioner. Time with Patient: Less than 30
[2022-01-20 12:02] LABS: Glucose,Whole Blood 128 mg/dL (75-99)
[2022-01-20 12:54] VITALS: BP 135/60; PULSE 70
--- NOTE | 2022-01-20 21:45 | P.DS ---
Providers Date of admission: 01/14/22 17:27 Attending physician: German Xiao Consults: 01/14/22 17:28 Consult Physician Routine Consulting Provider: Kirk Maloney Consult Reason/Comments: elevated troponin Do you want consulting provider notified?: Yes Consult Physician Routine Consulting Provider: Nicola Rodriguez Consult Reason/Comments: hypoxia Do you want consulting provider notified?: Yes Primary care physician: [facility] Hospital Course: Diagnoses: Most likely Bilateral Covid pneumonia Acute on chronic hypoxic respiratory failure Increased inflammatory markers Pulmonary fibrosis Elevated troponin with mild ST depression, most likely demand supply mismatch per professional sports scout Diabetes mellitus Hypertension Hyperlipidemia chronic hypoxic respiratory failure and is 3-5 L/m at home Chronic atrial fibrillation on Eliquis History of coronary artery disease status post CABG Congenital or kidney History of obstructive sleep apnea not on CPAP Hospital course: This is a pleasant 66 years old male with past medical history of Atrial Fibrillation on Eliquis , Coronary Artery Disease , Diabetes Mellitus, Hyperlipidemia, Hypertension, Renal Disease with 1 kidney (congenital), MIGUEL not using a CPAP for now, Obesitystatus post , CABG 2014 Presents because of dyspnea for a few weeks progressively getting worse. Patient was admitted with bilateral Covid pneumonia and acute hypoxia with elements of pulmonary fibrosis with increased oxygen requirements up to 8-15 L/m on admission, he was treated with vitamins, prednisone 30 mg as well as by mouth Lasix. Patient has been evaluated by pulmonary and cardiology service Patient showed interval improvement in his dyspnea improved as well as coughing, his oxygen requirements came back to his baseline at 4-5 L/m today, no other symptoms like no chest pain or change in urine or bowel habits. No fever, patient agreed to go home Patient was cleared for discharge by pulmonary service Patient discharged on tapered steroids Problems and management plan were discussed with the patient and he verbalized understanding and acceptance Patient was found stable and can be discharged home however he needs follow-up as an outpatient. Patient was [facility] and patient agrees Patient was instructed to follow up with Dr. Espinosa and 2-3 weeks and he agreed and with professional sports scout Dr. Eddy 2-3 weeks and he agreed as well. Patient asked staff to help him with appointment Physical exam Gen: patient is a AAOx3, no distress. Obese CVS: S1-S2, RRR, no murmur Lungs: B/L CTA, no wheezing Abdomen: soft, no distention, no tenderness, positive bowel sounds Extremity: no leg edema or induration Time spent more than 35 minutes Also he has recent diagnosis of cough to 3 weeks ago, patient is on home oxygenThe last 2 days was not working.Oxygen saturation at, 70% Patient states that he was diagnosed with Covid pneumonia about 3 weeks ago where he was discharged from Hospital and he was doing well on 4 L oxygen via nasal cannula however over the last 2 days he was noticed that his oxygen saturation is going down and he went to see his doctor while he is at DrEnrique office he passed out as per the so she called 911 for him and brought him to the hospital. He doesn't have chest pain, he has some cough and a few clear phlegm. He has little looser stool but no overt diarrhea, no vomiting, no abdominal pain, is eating well. No dysuria or urgency. In the splenic but no weakness or numbness or blurred vision. He denies smoking, alcohol or illicit drugs. On admission patient was hypoxic 77% on room air, Seroquel 50-50 L per minute of oxygen via high flow nasal cannula. Also he is tachypneic. INR is 1.2 BMP showing creatinine is normal at 1.1. Troponin is slightly elevated at 0.1. Glucose around 200 Coronavirus: Not detected, during this admission however it was tested positive for on 12/10/2021 or 3 weeks ago WBCs 7.3, hemoglobin 11.0. ProBNP is 1300. Troponin is elevated at 0.108 Chest x-ray showed cardiomegaly with scattered infiltrates seen throughout both lung massey findings could reflect pneumonia or underlying congestive heart failure CTA of the chest: No evidence of pulmonary embolism. Coarse infiltrates throughout both lung massey compatible with COVID-19 pneumonia EKG showing normal sinus rhythm at [address]-T changes Echocardiogram done last month showing ejection fraction 55-60%, on 12/10/2021 Patient received 1 dose of IV Lasix, dexamethasone, heparin drip and aspirin 324 mg Patient is on oral Lasix 40 mg twice daily which is a home dose 01/16/2022 Patient states that his breathing easier today however he got really short of breath when went to commode and his oxygen requirement went up from 8 up to 15 L/m however after he settled down its back again to 8 L/m. His glucose is better controlled at 238 after increase his Levemir dose 73 up to ET units twice a day. He remains on home dose of Eliquis 5 mg, prednisone 30 mg 01/17/2022 Patient still reports slow progressive improvement in his shortness of breath and his coughing is better although he still have quite of cough. No other new complaint. Distal on each liter per minute of oxygen via nasal cannula. Glucose is better controlled today ejection fraction 55-60% He remains on prednisone 30 mg, Eliquis 5 mg, multiple vitamin as well as oral Lasix. 11/17/2022 Patient breathing easier as he states however he still on 8 L of oxygen per minute. His coughing is feeling better today after starting Robitussin His glucose was low this morning so we lowered his Levemir 8 units down to 77 units twice a day. Patient continued on Eliquis 5 mg, prednisone and multiple vitamins. Chest x-ray showing diffuse interstitial edema slightly improved. I talked to him about possible rehab versus home health care, and he wants to talk to social work case manager 01/19/2022 Patient still reports improvement in his breathing pattern, his oxygen requirement down to 6 L per minute today from 8 L/m. His cough is better with Robitussin. Pulmonary team on the case Chest x-rays pending Possible discharge in 24-48 hour once cleared by pulmonary service Patient Condition at Discharge: Critical Plan - Discharge Summary Discharge Rx Participant: No New Discharge Prescriptions: New predniSONE 0 mg PO DIRECTED 16 Days #30 tab Albuterol Nebulized [Ventolin Nebulized] 1.25 mg INHALATION Q6H PRN 25 Days #300 ml PRN Reason: Dyspnea Famotidine [Pepcid] 40 mg PO DAILY #60 tab Continue Metoprolol Tartrate [Lopressor] 25 mg PO BID busPIRone HCl [Buspar] 20 mg PO BID Apixaban [Eliquis] 5 mg PO BID Ferrous Sulfate [Feosol] 325 mg PO DAILY Miconazole Nitrate [Lotrimin AF Powder] 1 applic TOPICAL BID Dextran 70/Hypromellose [Genteal Tears 0.1%-0.3% Drop] 1 drop BOTH EYES QID Insulin Glargine,Hum.rec.anlog [Lantus Solostar Pen] 73 unit SQ BID Insulin Aspart [NovoLOG Flexpen] 43 units SQ AC-BID@1200,1700 Insulin Aspart [NovoLOG Flexpen] 53 units SQ AC-BRKFST Insulin Aspart [NovoLOG Flexpen] See Protocol SQ AC-TID Atorvastatin [Lipitor] 40 mg PO HS Aspirin EC [Ecotrin Low Dose] 81 mg PO DAILY Lifitegrast [Xiidra] 1 drop BOTH EYES BID Zinc Sulfate [Orazinc] 220 mg PO DAILY 14 Days #14 cap Sodium Bicarbonate Tab 650 mg PO BID 30 Days #60 tab Gabapentin [Neurontin] 400 mg PO TID Latanoprost [Xalatan 0.005%] 1 drop BOTH EYES BID EPINEPHrine (Auto Inject) [Epipen] 0.3 mg IM ONCE PRN PRN Reason: Anaphylaxis Acetaminophen Tab [Tylenol] 650 mg PO Q6HR PRN tab PRN Reason: Mild Pain Or Fever > 100.5 Ascorbic Acid [Vitamin C] 1,000 mg PO DAILY 30 Days #60 tab Cholecalciferol [Vitamin D3 (125 Mcg = 5000 Iu)] 125 mcg PO DAILY 30 Days #30 tablet Furosemide [Lasix] 40 mg PO BID 30 Days #60 tablet Ergocalciferol [Vitamin D2 (1250 Mcg = 16181 Iu)] 1,250 mcg PO Q30D Discontinued Ketoconazole [Ketoconazole 2% Shampoo] 1 applic TOPICAL DAILY Trolamine Salicylate [Myoflex] 1 applic TOPICAL DIRECTED Ketoconazole 2% Cream [Nizoral 2%] 1 applic TOPICAL BID Dexamethasone 6 mg PO DAILY 5 Days #5 tablet Albuterol Inhaler [Ventolin Hfa Inhaler] 2 puff INHALATION RT-QID 30 Days #1 gm Discharge Medication List Apixaban [Eliquis] 5 mg PO BID 05/04/19 [History] Metoprolol Tartrate [Lopressor] 25 mg PO BID 05/04/19 [History] busPIRone HCl [Buspar] 20 mg PO BID 05/04/19 [History] Ferrous Sulfate [Feosol] 325 mg PO DAILY 07/11/20 [History] Aspirin EC [Ecotrin Low Dose] 81 mg PO DAILY 12/10/21 [History] Atorvastatin [Lipitor] 40 mg PO HS 12/10/21 [History] Dextran 70/Hypromellose [Genteal Tears 0.1%-0.3% Drop] 1 drop BOTH EYES QID 12/10/21 [History] EPINEPHrine (Auto Inject) [Epipen] 0.3 mg IM ONCE PRN 12/10/21 [History] Gabapentin [Neurontin] 400 mg PO TID 12/10/21 [History] Insulin Aspart [NovoLOG Flexpen] 43 units SQ AC-BID@1200,1700 12/10/21 [History] Insulin Aspart [NovoLOG Flexpen] 53 units SQ AC-BRKFST 12/10/21 [History] Insulin Aspart [NovoLOG Flexpen] See Protocol SQ AC-TID 12/10/21 [History] Insulin Glargine,Hum.rec.anlog [Lantus Solostar Pen] 73 unit SQ BID 12/10/21 [History] Latanoprost [Xalatan 0.005%] 1 drop BOTH EYES BID 12/10/21 [History] Lifitegrast [Xiidra] 1 drop BOTH EYES BID 12/10/21 [History] Miconazole Nitrate [Lotrimin AF Powder] 1 applic TOPICAL BID 12/10/21 [History] Acetaminophen Tab [Tylenol] 650 mg PO Q6HR PRN tab 12/15/21 [Rx] Ascorbic Acid [Vitamin C] 1,000 mg PO DAILY 30 Days #60 tab 12/15/21 [Rx] Cholecalciferol [Vitamin D3 (125 Mcg = 5000 Iu)] 125 mcg PO DAILY 30 Days #30 tablet 12/15/21 [Rx] Furosemide [Lasix] 40 mg PO BID 30 Days #60 tablet 12/15/21 [Rx] Sodium Bicarbonate Tab 650 mg PO BID 30 Days #60 tab 12/15/21 [Rx] Zinc Sulfate [Orazinc] 220 mg PO DAILY 14 Days #14 cap 12/15/21 [Rx] Ergocalciferol [Vitamin D2 (1250 Mcg = 83184 Iu)] 1,250 mcg PO Q30D 01/14/22 [History] Albuterol Nebulized [Ventolin Nebulized] 1.25 mg INHALATION Q6H PRN 25 Days #300 ml 01/20/22 [Rx] Famotidine [Pepcid] 40 mg PO DAILY #60 tab 01/20/22 [Rx] predniSONE 0 mg PO DIRECTED 16 Days #30 tab 01/20/22 [Rx] Follow up Appointment(s)/Referral(s): Nicola Rodriguez DO [Doctor of Osteopathic Medicine] - 02/05/22 2:45 pm (appt with Blanca ) Gonsalo Eddy MD [STAFF PHYSICIAN] - 01/30/22 10:30 am [facility],Clinic [Primary Care Provider] - 1-2 days Activity/Diet/Wound Care/Special Instructions: [facility] you once arrangements are complete Discharge Disposition: HOME WITH HOME HEALTH SERVICES
--- NOTE | 2022-01-22 09:02 | CDI ---
Documentation Clarification Form Date: 01/22/22 From: Yareli Yo Admit Date: 01/14/2022 05:27:00 PM Patient Name: Neftaly Cope Visit Number: [id number] Discharge Date: 01/20/2022 01:49:00 PM ATTENTION: The Clinical Documentation Specialists (CDI) and [facility] Coding Staff appreciate your assistance in clarifying documentation. Please respond to the clarification below the line at the bottom and electronically sign. The CDI & [facility] Coding staff will review the response and follow-up if needed. Please note: Queries are made part of the Legal Health Record. If you have any questions, please contact the author of this message via ITS. Dr. Black E oRmy, The patient has had a recent episode of COVID-19 infection on November as documented in the medical record, and now presents with: bilateral pneumonia per H&P. COVID test came back negative. Treated with Dexamethasone. Please clarify the current status of the patients COVID-19 infection in the next progress note and/or discharge summary such as: ___ COVID-19 is not a current infection, and the stated condition is a residual effect/sequelae of COVID-19 (post COVID) ___ COVID-19 continues to be a current and active infection, and the stated condition is a continuation of its symptoms ___ Other explanation of clinical findings (please specify): ___ Clinically unable to determine the current status of the patients COVID-19 infection ___ Unknown pt received treatment for covid 19 infection while in the hospital MTDD
== END 2022-01-20 13:49 | disposition home health service (06) | DRG 177 ==
LOC: EC 11:20 → 3SCARD 17:27
PROVIDERS: ADMIT Hospitalist; ATTEND Hospitalist
PROC: 5A0945A Assistance with Respiratory Ventilation, 24-96 Consecutive Hours, High Flow/Velocity Cannula (ICD-10-PCS; principal; 2022-01-15)
DX: U07.1 COVID-19 (principal); J96.21 Acute and chronic respiratory failure with hypoxia; I50.33 Acute on chronic diastolic (congestive) heart failure; I21.A1 Myocardial infarction type 2; J12.82 Pneumonia due to coronavirus disease 2019; I48.20 Chronic atrial fibrillation, unspecified; I13.0 Hypertensive heart and chronic kidney disease with heart failure and stage 1 through stage 4 chronic kidney disease, or unspecified chronic kidney disease; Q60.0 Renal agenesis, unilateral; Z68.43 Body mass index [BMI] 50.0-59.9, adult; E11.22 Type 2 diabetes mellitus with diabetic chronic kidney disease; J84.10 Pulmonary fibrosis, unspecified; E66.01 Morbid (severe) obesity due to excess calories; Z79.4 Long term (current) use of insulin; Z20.822 Contact with and (suspected) exposure to COVID-19; N18.9 Chronic kidney disease, unspecified; I25.10 Atherosclerotic heart disease of native coronary artery without angina pectoris; E78.5 Hyperlipidemia, unspecified; G47.33 Obstructive sleep apnea (adult) (pediatric); F41.9 Anxiety disorder, unspecified; K21.9 Gastro-esophageal reflux disease without esophagitis; Z79.01 Long term (current) use of anticoagulants; Z79.82 Long term (current) use of aspirin; Z79.899 Other long term (current) drug therapy; Z95.1 Presence of aortocoronary bypass graft; Z87.891 Personal history of nicotine dependence; Z86.14 Personal history of Methicillin resistant Staphylococcus aureus infection; Z90.89 Acquired absence of other organs; Z98.42 Cataract extraction status, left eye; Z98.41 Cataract extraction status, right eye; Z87.39 Personal history of other diseases of the musculoskeletal system and connective tissue; Z98.890 Other specified postprocedural states; Z88.1 Allergy status to other antibiotic agents; Z91.030 Bee allergy status; Z88.8 Allergy status to other drugs, medicaments and biological substances; Z91.018 Allergy to other foods; Z82.49 Family history of ischemic heart disease and other diseases of the circulatory system; Z83.3 Family history of diabetes mellitus; Z82.5 Family history of asthma and other chronic lower respiratory diseases; Z83.49 Family history of other endocrine, nutritional and metabolic diseases
CPT/HCPCS: 36415; 71045; 71046; 71275; 80048; 80053; 83036; 83605; 83735; 83880; 84145; 84443; 84484; 85025; 85379; 85610; 85730; 87635; 93005; 93306; 94640; 94760; 96374; 99285

== ENCOUNTER → 2022-02-04 | Outpatient (CLI) | payer OTHER, MEDICARE ==
[2022-02-04 14:58] LABS: BUN/Creat Ratio 25.53 Ratio (12.00-20.00); Chol/HDL Ratio 2.26 Ratio; LDL Cholesterol,Calculated 57.8 mg/dL (0.0-131.0)
[2022-02-04 14:59] LABS: ALT 43 U/L (10-49); AST 38 U/L (14-35); African American GFR (CKD) 65.6 (60.0-200.0); Albumin 4.3 g/dL (3.8-4.9); Albumin/Globulin Ratio 1.42 (1.60-3.17); Alkaline Phosphatase 149 U/L (41-126); Blood Urea Nitrogen 33.7 mg/dL (9.0-27.0); Calcium 9.7 mg/dL (8.7-10.3); Carbon Dioxide 25.1 mmol/L (20.0-27.5); Chloride 96 mmol/L (96-109); Glucose 162 mg/dL (70-110); Non-African American GFR(CKD) 56.6 (60.0-200.0); Potassium 3.7 mmol/L (3.5-5.5); Sodium 137 mmol/L (135-145); Total Protein 7.4 g/dL (6.2-8.2)
[2022-02-04 17:31] LABS: Basophils # (A) 0.03 X 10*3/uL (0.00-0.10); Basophils % (A) 0.4 %; Eosinophils # (A) 0.45 X 10*3/uL (0.04-0.35); Eosinophils % (A) 6.5 %; HCT 46.7 % (39.6-50.0); Immature Grans, Automated 0.3 %; Lymphocytes # (A) 1.82 X 10*3/uL (0.90-5.00); Lymphocytes % (A) 26.4 %; MCHC 32.1 g/dL (32.0-37.0); MCV 102.9 fL (80.0-97.0); Mean Platelet Volume 11.4 fL (9.5-12.2); Monocytes # (A) 0.39 X 10*3/uL (0.20-1.00); Monocytes % (A) 5.7 %; NRBC Per 100 WBC 0 /100 WBCS (0.0-0.0); Neutrophils # (A) 4.18 X 10*3/uL (1.80-7.70); Neutrophils % (A) 60.7 %; Platelet Count 88 X 10*3/uL (140-440); RBC 4.54 X 10*6/uL (4.40-5.60); RBC Morphology NORMAL; RDW 15.4 % (11.5-14.5); WBC 6.89 X 10*3/uL (4.50-10.00)
== END | disposition home or self-care (01) ==
LOC: LABWHC1 09:13
PROVIDERS: ATTEND Physician Assistant Medical
DX: Z00.00 Encounter for general adult medical examination without abnormal findings (principal)
CPT/HCPCS: 36415; 80053; 80061; 83036; 84153; 84443; 85025